=== PATIENT | male | born 1950 | race Caucasian/White ===

== ENCOUNTER 2017-12-31 10:11 | Day surgery (SDC) | payer MEDICARE, MEDICAID, SELFPAY ==
[2017-12-31] VITALS (13 sets, daily range): BP systolic 121–152; BP diastolic 67–92; PULSE 51–62; RESP 18–20; TEMP 36.8; O2SAT 92–95; BMI 37.6
--- NOTE | 2017-12-31 | IR_ITS ---
CARDIAC CATHETERIZATION DATE OF CATHETERIZATION:12/31/2017 10:11 AM PROCEDURES: 1. Left heart catheterization 2. Left ventriculogram 3. Selective coronary angiogram INDICATION FOR TEST: 1. Class III angina despite 2 antianginal medication 2. Refusal to undergo stress testing 3. Known coronary artery disease Informed consent was obtained prior to the procedure. COMPLICATIONS: None ESTIMATED BLOOD LOSS: Less than 10 ml. TECHNIQUE: One percent lidocaine used to anesthetize the right anterior aspect of the wrist. The right radial artery was accessed via the Seldinger technique. A 6 Uzbek sheath was placed in the right radial artery. 2.5 mg of verapamil, 800 mcg of nitroglycerin and 5000 U Heparin were given through the arterial sheath. The trap catheter was also used to perform left heart catheterization and left ventriculography. At the end of the procedure the patient was transferred to the post-op holding area in stable condition for arterial sheath removal. ANGIOGRAPHIC RESULTS: 1. The left main artery normal 2. The left anterior descending artery has a proximal 20% stenosis followed by a stent immediately after the first septal drying machine operator and first diagonal artery which is widely patent with very mild in-stent restenosis. The mid to distal LAD has a 60-70% concentric stenosis at a 2 mm segment. The first diagonal artery is a 2.25 to 2 mm vessel and has a proximal mostly eccentric 80% stenosis. 3. The circumflex artery is a nondominant vessel and has a stent in the proximal segment widely patent free of in-stent restenosis 4. The right coronary artery is a dominant vessel and has proximal to mid vessel stents are widely patent with minimal in-stent restenosis. The mid vessel has 40% stenoses with a distal eccentric 60% stenosis followed by an additional 40-50% stenosis followed by additional distal 40-50% stenoses. 5. The HANCOCK ventriculogram reveals normal 65% 6. The left ventricular end-diastolic pressure 20 millimeters mercury IMPRESSION: 1. Coronary artery disease as described above 2. Normal ejection fraction 3. Mildly elevated LVEDP PLAN: 1. At this point I favor medical management. I was not entirely convinced the patient's chest pain was angina. Should his symptoms remain recalcitrant and intolerable we can consider stenting the first diagonal artery and right coronary artery. At this point I don't believe patient was actually experiencing angina after all 2. Medical management 3. LDL less than 55 4. Continue cardiac rehabilitation 5. Avoidance of tobacco products
[2017-12-31 10:44] LABS: Basophils # 0.1 K/mm3 (0-0.2); Basophils % 1.2 % (0.1-2.0); Eosinophils # 0.3 K/mm3 (0.0-0.4); Eosinophils % 3.9 % (0.1-12.0); Hematocrit 47.7 % (42.0-52.0); Hemoglobin 16.2 g/dL (14.1-18.0); Lymphocytes # 2.1 K/mm3 (0.7-4.5); Lymphocytes % 29.9 K/mm3 (10-50); Mean Corpuscular Hemoglobin 32.3 pg (27.0-31.2); Mean Corpuscular Volume 95.2 fl (80-94); Mean Platelet Volume 7.1 fl (7.4-10.4); Monocytes # 0.5 K/mm3 (0.1-1.0); Monocytes % 7.4 % (1.7-9.3); Neutrophils # 4.1 K/mm3 (1.8-7.8); Neutrophils % 57.7 % (37.0-80.0); Platelet Count 245 K/mm3 (142-424); Red Blood Count 5.01 M/mm3 (4.60-6.20); Red Cell Distribution Width 13.1 % (11.5-17.5); White Blood Count 7.1 K/mm3 (4.8-10.8)
[2017-12-31 10:56] LABS: Anion Gap 8.9 mEq/L (5-15); Blood Urea Nitrogen 16 mg/dL (7-18); Carbon Dioxide 29 mmol/L (21.0-32.0); Chloride 104 mmol/L (98-107); Creatinine Clearance Estimated 117 mL/min (0-300); Creatinine,Serum 1.03 mg/dL (0.70-1.30); Estimated Glomerular Filt Rate 72 ml/min (>60); GFR (African American) 87 ML/MIN (>60); Glucose 126 mg/dL (74-106); Potassium 3.9 mmoL/L (3.5-5.1); Sodium 138 mmol/L (136-145)
== END 2017-12-31 15:05 | disposition home or self-care (01) ==
LOC: CATHLAB 10:14
PROVIDERS: PCP Emergency Medicine; Visit Provider Internal Medicine
DX: R07.9 Chest pain, unspecified (principal); I25.119 Atherosclerotic heart disease of native coronary artery with unspecified angina pectoris; Z95.5 Presence of coronary angioplasty implant and graft; I11.9 Hypertensive heart disease without heart failure; R53.83 Other fatigue; E78.5 Hyperlipidemia, unspecified; G47.33 Obstructive sleep apnea (adult) (pediatric); R06.02 Shortness of breath; R00.1 Bradycardia, unspecified; R20.2 Paresthesia of skin
CPT/HCPCS: 80048; 85025; 93458; 99152; C1725; C1769; J1644; Q9967

== ENCOUNTER → 2018-04-07 09:13 | Outpatient (REF) | payer MEDICARE, SELFPAY ==
[2018-04-07 13:49] LABS: Amphetamine/Metha Screen,Urine Negative ng/mL (<1000); Barbiturates Screen,Urine Negative ng/mL (<200); Benzodiazepines Screen,Urine Negative ng/mL (200); Cannabinoid Screen,Urine Negative ng/mL (<50); Cocaine Screen,Urine Negative ng/g (<300); Methadone Screen,Urine Negative ng/mL (<300); Opiate Screen,Urine Negative ng/mL (<300); Phencyclidine Screen,Urine Negative ng/mL (<25)
== END ==
LOC: LAB 09:13
PROVIDERS: Visit Provider Emergency Medicine
DX: Z79.899 Other long term (current) drug therapy (principal)
CPT/HCPCS: 80305

== ENCOUNTER → 2018-07-07 08:38 | Outpatient (REF) | payer MEDICARE, SELFPAY ==
[2018-07-07 16:07] LABS: Amphetamine/Metha Screen,Urine Negative ng/mL (<1000); Barbiturates Screen,Urine Negative ng/mL (<200); Benzodiazepines Screen,Urine Negative ng/mL (<200); Cannabinoid Screen,Urine Negative ng/mL (<50); Cocaine Screen,Urine Negative ng/mL (<300); Methadone Screen,Urine Negative ng/mL (<300); Opiate Screen,Urine Negative ng/mL (<300); Phencyclidine Screen,Urine Negative ng/mL (<25)
[2018-07-14 09:09] LABS: Alprazolam Negative (Cutoff=100); Benzodiazepines Negative ng/mL (Cutoff=100); Clonazepam Negative (Cutoff=100); Flurazepam Negative (Cutoff=100); Lorazepam Negative (Cutoff=100); Midazolam Negative (Cutoff=100); Temazepam Negative (Cutoff=100); Triazolam Negative (Cutoff=100)
== END ==
LOC: LAB 08:38
PROVIDERS: Visit Provider Nurse Practitioner Family
DX: Z79.899 Other long term (current) drug therapy (principal)
CPT/HCPCS: 80305; 80346

== ENCOUNTER → 2018-10-06 13:48 | Outpatient (CLI) | payer MEDICARE, SELFPAY ==
[2018-10-06 14:24] LABS: Amphetamine/Metha Screen,Urine Negative ng/mL (<1000); Barbiturates Screen,Urine Negative ng/mL (<200); Benzodiazepines Screen,Urine Negative ng/mL (<200); Cannabinoid Screen,Urine Negative ng/mL (<50); Cocaine Screen,Urine Negative ng/mL (<300); Methadone Screen,Urine Negative ng/mL (<300); Opiate Screen,Urine Negative ng/mL (<300); Phencyclidine Screen,Urine Negative ng/mL (<25)
[2018-10-11 22:06] LABS: Alprazolam Negative (Cutoff=100); Benzodiazepines Positive ng/mL (Cutoff=100); Clonazepam Positive (.); Flurazepam Negative (Cutoff=100); Lorazepam Negative (Cutoff=100); Midazolam Negative (Cutoff=100); Temazepam Negative (Cutoff=100); Triazolam Negative (Cutoff=100)
[2018-10-13 06:29] LABS: Clonazepam Confirm 282 ng/mL (Cutoff=100)
== END ==
PROVIDERS: Visit Provider Emergency Medicine
DX: Z79.899 Other long term (current) drug therapy (principal)
CPT/HCPCS: 80305; 80346

== ENCOUNTER → 2019-04-06 11:42 | Outpatient (CLI) | payer MEDICARE, SELFPAY ==
[2019-04-06 12:36] LABS: Basophils # 0.1 K/mm3 (0-0.2); Basophils % 1.1 % (0.1-2.0); Eosinophils # 0.1 K/mm3 (0.0-0.4); Eosinophils % 2.5 % (0.1-12.0); Hematocrit 47.7 % (42.0-52.0); Hemoglobin 15.6 g/dL (14.1-18.0); Lymphocytes # 1.8 K/mm3 (0.7-4.5); Lymphocytes % 32.5 % (10-50); Mean Corpuscular HGB Conc 32.7 g/dL (31.8-35.4); Mean Corpuscular Hemoglobin 30.4 pg (27.0-31.2); Mean Platelet Volume 7.3 fl (7.4-10.4); Monocytes # 0.5 K/mm3 (0.1-1.0); Monocytes % 8.3 % (1.7-9.3); Neutrophils # 3.1 K/mm3 (1.8-7.8); Neutrophils % 55.6 % (37.0-80.0); Platelet Count 215 K/mm3 (142-424); Red Blood Count 5.13 M/mm3 (4.60-6.20); Red Cell Distribution Width 12.7 % (11.5-17.5); White Blood Count 5.6 K/mm3 (4.8-10.8)
[2019-04-06 13:51] LABS: Alanine Aminotransferase 55 U/L (12-78); Albumin Level 3.9 gm/dL (3.4-5.0); Albumin/Globulin Ratio 1.3 (1.1-1.8); Alkaline Phosphatase 35 U/L (46-116); Anion Gap 16.5 mEq/L (5-15); Aspartate Amino Transferase 26 U/L (15-37); Bilirubin,Total 1.3 mg/dL (0.2-1.0); Blood Urea Nitrogen 13 mg/dL (7-18); Calcium 9.1 mg/dL (8.5-10.1); Carbon Dioxide 26 mmol/L (21.0-32.0); Chloride 103 mmol/L (98-107); Chol/HDL Ratio 3.4 (1-3.5); Cholesterol 120 mg/dL (140-200); Creatinine,Serum 1.02 mg/dL (0.70-1.30); Estimated Glomerular Filt Rate 73 ml/min (>60); GFR (African American) 88 ML/MIN (>60); Glucose 137 mg/dL (74-106); HDL Cholesterol 35 mg/dL (27-67); LDL Cholesterol 63 mg/dL (0-130); Potassium 4.5 mmoL/L (3.5-5.1); Sodium 141 mmol/L (136-145); Thyroid Stimulating Hormone 2.11 uIU/ml (0.358-3.740); Total Protein,Serum 6.9 gm/dL (6.4-8.2); Triglycerides 108 mg/dL (30-200); VLDL Cholesterol 22 mg/dL (0-40)
[2019-04-07 19:55] LABS: PSA, Free 0.35 ng/mL; Prostate Specific Ag 0.9 ng/mL (0.0-4.0)
[2019-04-07 19:58] LABS: Vitamin D 25 Hydroxy 35.4 ng/mL (30.0-100.0)
[2019-04-08 11:08] LABS: Hemoglobin A1C 7.1 % (0.0-7.0)
== END ==
PROVIDERS: Visit Provider Emergency Medicine
DX: I11.9 Hypertensive heart disease without heart failure (principal); R73.9 Hyperglycemia, unspecified; Z87.891 Personal history of nicotine dependence; Z79.899 Other long term (current) drug therapy
CPT/HCPCS: 80053; 80061; 82652; 83036; 84153; 84154; 84439; 84443; 85025

== ENCOUNTER → 2019-06-22 13:28 | Outpatient (CLI) | payer MEDICARE, SELFPAY ==
[2019-06-22 14:08] LABS: Anion Gap 12.3 mEq/L (5-15); Blood Urea Nitrogen 17 mg/dL (7-18); Calcium 9.3 mg/dL (8.5-10.1); Carbon Dioxide 30 mmol/L (21.0-32.0); Chloride 105 mmol/L (98-107); Creatinine,Serum 1.01 mg/dL (0.70-1.30); Estimated Glomerular Filt Rate 73 ml/min (>60); GFR (African American) 89 ML/MIN (>60); Glucose 115 mg/dL (74-106); Potassium 4.3 mmoL/L (3.5-5.1); Sodium 143 mmol/L (136-145)
[2019-06-22 15:18] LABS: Hemoglobin A1C 6.6 % (0.0-7.0)
== END ==
PROVIDERS: Visit Provider Emergency Medicine
DX: E11.9 Type 2 diabetes mellitus without complications (principal); R06.00 Dyspnea, unspecified; Z79.84 Long term (current) use of oral hypoglycemic drugs
CPT/HCPCS: 80048; 83036

== ENCOUNTER → 2019-07-08 06:30 | Outpatient (CLI) | payer MEDICARE, SELFPAY ==
[2019-07-09 07:20] LABS: Vitamin B12 321 pg/mL (232-1245)
[2019-07-12 04:17] LABS: Testosterone, Total, LC/MS 215.6 ng/dL (264.0-916.0)
== END ==
PROVIDERS: PCP Emergency Medicine; Visit Provider Nurse Practitioner Family
DX: G47.19 Other hypersomnia (principal); G47.33 Obstructive sleep apnea (adult) (pediatric); R53.83 Other fatigue
CPT/HCPCS: 36415; 82607; 84402; 84403

== ENCOUNTER → 2020-04-11 09:48 | Outpatient (CLI) | payer MEDICARE, SELFPAY ==
[2020-04-11 10:25] LABS: Basophils # 0.1 K/mm3 (0-0.2); Basophils % 1.2 % (0.1-2.0); Eosinophils # 0.2 K/mm3 (0.0-0.4); Eosinophils % 2.6 % (0.1-12.0); Hemoglobin 16.6 g/dL (14.1-18.0); Lymphocytes # 1.8 K/mm3 (0.7-4.5); Lymphocytes % 27.5 % (10-50); Mean Corpuscular HGB Conc 34.7 g/dL (31.8-35.4); Mean Corpuscular Hemoglobin 32.3 pg (27.0-31.2); Mean Platelet Volume 7.1 fl (7.4-10.4); Monocytes # 0.5 K/mm3 (0.1-1.0); Monocytes % 7.5 % (1.7-9.3); Neutrophils % 61.3 % (37.0-80.0); Platelet Count 218 K/mm3 (142-424); Red Blood Count 5.16 M/mm3 (4.60-6.20); Red Cell Distribution Width 13.7 % (11.5-17.5); White Blood Count 6.5 K/mm3 (4.8-10.8)
[2020-04-11 11:21] LABS: Microalbumin < 6.000 mg/L (0-16.7)
[2020-04-11 11:51] LABS: Chloride 103 mmol/L (98-107)
[2020-04-11 11:52] LABS: Potassium 4.1 mmoL/L (3.5-5.1); Sodium 138 mmol/L (136-145)
[2020-04-11 11:54] LABS: Alanine Aminotransferase 44 U/L (12-78); Albumin Level 4.4 g/dl (3.5-5.0); Albumin/Globulin Ratio 1.7 (1.1-1.8); Alkaline Phosphatase 30 U/L (38-126); Anion Gap 12.1 mEq/L (5-15); Aspartate Amino Transferase 27 U/L (17-59); Bilirubin,Total 1.8 mg/dl (0.2-1.3); Blood Urea Nitrogen 16 mg/dl (9-20); Carbon Dioxide 27 mmol/L (22.0-30.0); Cholesterol 138 mg/dl (140-200); Estimated Glomerular Filt Rate 74 ml/min (>60); GFR (African American) 90 ML/MIN (>60); Globulin 2.6 g/dL (1.3-3.2); Triglycerides 107 mg/dl (30-150); VLDL Cholesterol 21 mg/dL (0-40)
[2020-04-11 11:55] LABS: Calcium 9.3 mg/dl (8.4-10.2); Chol/HDL Ratio 3.1 (1-3.5); Glucose 113 mg/dl (74-100); HDL Cholesterol 44 mg/dl (40-60)
[2020-04-11 12:06] LABS: Direct LDL Cholesterol 87.04 mg/dL (100-129)
[2020-04-11 12:11] LABS: T4 (Thyroxine) 9.1 ug/dl (5.53-11.0)
[2020-04-11 12:25] LABS: Thyroid Stimulating Hormone 3.09 uIU/mL (0.465-4.68)
[2020-04-11 13:40] LABS: Hemoglobin A1C 6.4 % (4.0-6.0)
== END ==
PROVIDERS: Visit Provider Emergency Medicine
DX: E11.9 Type 2 diabetes mellitus without complications (principal); E66.9 Obesity, unspecified; E78.5 Hyperlipidemia, unspecified; F41.9 Anxiety disorder, unspecified; I11.9 Hypertensive heart disease without heart failure; R60.9 Edema, unspecified; Z79.84 Long term (current) use of oral hypoglycemic drugs
CPT/HCPCS: 36415; 80053; 80061; 82043; 83036; 84436; 84443; 85025

== ENCOUNTER → 2020-04-18 13:26 | Outpatient (CLI) | payer MEDICARE, SELFPAY ==
[2020-04-18 14:43] LABS: Creatinine,Urine Random 94 mg/dL (Not Estab.); Microalbumin < 6.000 mg/L (0-16.7)
== END ==
PROVIDERS: Visit Provider Emergency Medicine
DX: E11.9 Type 2 diabetes mellitus without complications (principal); Z79.84 Long term (current) use of oral hypoglycemic drugs
CPT/HCPCS: 82043; 82570

== ENCOUNTER → 2020-05-30 12:25 | Outpatient (CLI) | payer MEDICARE, SELFPAY ==
--- NOTE | 2020-05-30 12:37 | CA_ITS ---
APPROVED REPORT EXAM: Comprehensive 2D, Doppler, and color-flow Echocardiogram Manager Foreign: Melissa Davies RVT Ht: 5 ft 10 in Wt: 246lbs BSA: 2.28 BP: 132/78 mmHg Indications: SOA,EX SMOKER,MR,CAD,STENT,HTN,HLD TDS 2D Dimensions LVOT 2.71 cm (M/F) 1.5-2.5 M-Mode Dimensions RVDd 3.24 cm (0.9-2.6) LVDd 5.26 cm (3.5-5.7) LVDs 3.34 cm (3.5-5.7) IVSd 1.42 cm (0.6-1.1) PWd 0.98 cm (0.6-1.1) EF (Teich) 65.90% FS 36.50% EDV (Teich) 133.00 mL ESV (Teich) 45.40 mL Left Ventricle Technically very difficult study because of the patient factors and poor acoustic windows. Endocardial surfaces are poorly visualized. Left atrium is mildly enlarged, left ventricle is normal size, mild concentric left ventricular hypertrophy, visually estimated ejection fraction 55% with no regional wall motion abnormality, diastolic parameters are inconclusive. Right Ventricle Right atrium and right ventricle are mildly enlarged with normal contractility. Aortic Valve Aortic valve is minimally thickened and fibrosed, there is no aortic stenosis or aortic insufficiency. Mitral Valve Mitral valve is minimally thickened, there is mild mitral regurgitation. Tricuspid Valve Tricuspid valve is grossly normal, there is mild tricuspid regurgitation, calculated right ventricular systolic pressure 36 mmHg. Pulmonic Valve Pulmonic valve is poorly visualized. Great Vessels Aortic root is normal size. Pericardium No significant pericardial effusion noted. Conclusion 1. Biatrial enlargement, normal left ventricular size, mild concentric left ventricular hypertrophy, visually estimated ejection fraction 55% with no regional wall motion abnormality, diastolic parameters are inconclusive, endocardial surfaces are poorly visualized. 2. Mildly enlarged right ventricle with normal contractility. 3. Mild mitral and tricuspid regurgitation. 4. No significant pericardial effusion noted. Electronically signed by : Jose Barriga, 05/30/2020 18:24:31
== END ==
PROVIDERS: PCP Emergency Medicine; Visit Provider Nurse Practitioner Family
DX: I11.9 Hypertensive heart disease without heart failure; I25.10 Atherosclerotic heart disease of native coronary artery without angina pectoris; I25.2 Old myocardial infarction; I34.0 Nonrheumatic mitral (valve) insufficiency; R06.00 Dyspnea, unspecified; R06.01 Orthopnea; R06.02 Shortness of breath; E78.49 Other hyperlipidemia
CPT/HCPCS: 93306

== ENCOUNTER → 2020-06-06 09:49 | Outpatient (CLI) | payer MEDICARE, SELFPAY | PROVIDERS: PCP Emergency Medicine; Visit Provider Nurse Practitioner Family | DX: R00.1 Bradycardia, unspecified (principal); I48.91 Unspecified atrial fibrillation; I25.10 Atherosclerotic heart disease of native coronary artery without angina pectoris; I11.9 Hypertensive heart disease without heart failure; E78.2 Mixed hyperlipidemia; G47.33 Obstructive sleep apnea (adult) (pediatric) | CPT/HCPCS: 93225 ==

== ENCOUNTER → 2020-06-17 13:17 | Outpatient (CLI) | payer MEDICARE, SELFPAY ==
[2020-06-17 14:17] LABS: Basophils # 0.1 K/mm3 (0-0.2); Basophils % 1.1 % (0.1-2.0); Eosinophils # 0.2 K/mm3 (0.0-0.4); Eosinophils % 3.2 % (0.1-12.0); Hematocrit 46.9 % (42.0-52.0); Hemoglobin 15.5 g/dL (14.1-18.0); Lymphocytes % 30.5 % (10-50); Mean Corpuscular HGB Conc 33.1 g/dL (31.8-35.4); Mean Corpuscular Hemoglobin 31.2 pg (27.0-31.2); Mean Corpuscular Volume 94.3 fl (80-94); Mean Platelet Volume 7.4 fl (7.4-10.4); Monocytes # 0.4 K/mm3 (0.1-1.0); Monocytes % 6.2 % (1.7-9.3); Neutrophils # 3.8 K/mm3 (1.8-7.8); Platelet Count 237 K/mm3 (142-424); Red Blood Count 4.98 M/mm3 (4.60-6.20); Red Cell Distribution Width 13.9 % (11.5-17.5); White Blood Count 6.4 K/mm3 (4.8-10.8)
[2020-06-17 14:19] LABS: Chloride 103 mmol/L (98-107); Sodium 142 mmol/L (136-145)
[2020-06-17 14:20] LABS: Potassium 4.3 mmoL/L (3.5-5.1)
[2020-06-17 14:22] LABS: Blood Urea Nitrogen 17 mg/dl (9-20); Estimated Glomerular Filt Rate 74 ml/min (>60); GFR (African American) 90 ML/MIN (>60)
[2020-06-17 14:23] LABS: Anion Gap 13.3 mEq/L (5-15); Calcium 9.7 mg/dl (8.4-10.2); Carbon Dioxide 30 mmol/L (22.0-30.0); Glucose 134 mg/dl (74-100)
[2020-06-17 14:40] LABS: Free T4 (Free Thyroxine) 0.97 ng/dl (0.78-2.19)
[2020-06-17 14:53] LABS: Thyroid Stimulating Hormone 1.58 uIU/mL (0.465-4.68)
== END ==
PROVIDERS: Visit Provider Nurse Practitioner Family
DX: I48.91 Unspecified atrial fibrillation (principal); Z78.9 Other specified health status
CPT/HCPCS: 36415; 80048; 84439; 84443; 85025

== ENCOUNTER → 2020-06-28 07:14 | Outpatient (CLI) | payer MEDICARE, SELFPAY ==
--- NOTE | 2020-06-28 | CA_ITS ---
APPROVED REPORT Exam: Pharmacologic Technologist: Shelly Enriquez Ht: 5 ft 10 in Wt: 247 lbs BSA: 2.28 m2 HR: 70 bpm BP: 132/70 mmHg Indications: Chest pain, Shortness of Breath Medical History Medications: Amlodipine,,,,, Lisinopril,,,,, Aspirin,,,,, Pravastatin,,,,, Metformin,,,,, HCTZ,,,,, Carvedilol,,,,, Buspirone,,,,, Diclofenac,,,,, Fluoxetine,,,,, RIvaROXABAN,,,,, Stress Test Details Test: LEXISCAN HR Resting HR: 76 bpm Max Heart Rate (APMHR): 151 bpm Max HR Achieved: 96 bpm Target HR (85% APMHR): 128 bpm % of APMHR: 63 Recovery HR: 66 bpm BP Resting BP: 132.0/79.0 mmHg Max BP: 136.0/71.0 mmHg Recovery BP: 128.0/75.0 mmHg ECG Clinical Exercise duration: 04:03 min Highest Stage Achieved: Stress ECG Conclusion Resting EKG: Atrial fibrillation, slow R wave progression. Symptoms: Shortness of air, stomach cramps. No chest pain. Arrhythmias/Ectopy: Occasional PVCs vs abberantly conducted beat. ST-T Changes: No significant changes. Conclusion: Unremarkable Lexiscan stress. Myoview images reported separately. Test Summary REST . . . . . . . Resting REST 02:35 . . 76 . 132/ 79 . . Stage 1 . . . . . . . Myoview Injected Stage 1 01:00 . . 84 . . . . Stage 2 01:00 . . 79 . 136/ 71 . . Stage 3 01:00 . . 78 . 130/ 71 . . Stage 4 01:00 . . 80 . 115/ 70 . . Stage 4 01:03 . . 69 . 115/ 70 . Stop exercise at 04:03 RECOVERY 01:00 . . 86 . 124/ 76 . . RECOVERY 02:00 . . 82 . 124/ 76 . . RECOVERY 03:00 . . 74 . 131/ 76 . . RECOVERY 03:34 . . 77 . 128/ 75 . . Electronically signed by : Jose Barriga, 06/28/2020 21:12:48
--- NOTE | 2020-06-28 07:14 | NM_ITS ---
APPROVED REPORT Exam: Nuclear Stress Test Indication: short of breath Patient Location: Outpatient Stress Tech: Shelly Enriquez NH Tech:RAFAT Ellis RT(R)(N) Ht: 5 ft 10 in Wt: 247 lbs HR: 70 bpm BP: 132/70 mmHg BSA: 2.28 m2 BMI: 35.4 History: short of breath Procedure: Patient received a 0.4 mg of intravenous Lexiscan, resting heart rate 70 bpm, resting blood pressure 132/70 mmHg, with Lexiscan maximum heart rate achived was 86 bpm which is Less than 85 % of the maximum predicted heart rate and blood pressure was 136/71 mmHg. With Lexiscan, patient denied any complaint of chest pain. Electrocardiogram Resting electrocardiogram showed atrial fibrillation, with Lexiscan there is less than 1.[address] segment depression noted from the baseline EKG. The EKG portion of the Lexiscan Myoview is nondiagnostic. Cardiac Stress and Resting SPECT Images: Cardiac Stress and Resting SPECT images were obtained using technetium 99m Myoview 30.8 mCi stress and 10.48 mCi at rest. Gated SPECT for the analysis of segmental wall motion and calculation of the ejection fraction also done. Cardiac stress and resting SPECT images show uniform myocardial activity without segmental perfusion abnormality, computer derived ejection fraction is 63% with no regional wall motion abnormality, right ventricle is normal size and contractility. Conclusion: 1. The EKG portion of the Lexiscan Myoview is nondiagnostic. 2. No scintigraphic evidence of reversible ischemia seen, computer derived ejection fraction is 63% with no regional wall motion abnormality, right ventricle is normal size and contractility. 3. Normal Lexiscan Myoview study. Electronically signed by : Jose Barriga, 06/28/2020 21:14:59
--- NOTE | 2020-06-28 10:22 | HMH.ITSHM ---
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 [] xarelto pravastatin amlodipine
== END ==
PROVIDERS: PCP Emergency Medicine; Visit Provider Nurse Practitioner Family
DX: E78.2 Mixed hyperlipidemia (principal); G47.33 Obstructive sleep apnea (adult) (pediatric); I11.9 Hypertensive heart disease without heart failure; I25.10 Atherosclerotic heart disease of native coronary artery without angina pectoris; I25.2 Old myocardial infarction; I48.91 Unspecified atrial fibrillation; R00.1 Bradycardia, unspecified; R06.00 Dyspnea, unspecified; R07.9 Chest pain, unspecified
CPT/HCPCS: 78452; 93017; A9502; J2785

== ENCOUNTER → 2021-02-21 11:23 | Outpatient (CLI) | payer MEDICARE, SELFPAY ==
[2021-02-21 11:50] LABS: Basophils # 0.1 K/mm3 (0-0.2); Basophils % 1.5 % (0.1-2.0); Eosinophils # 0.2 K/mm3 (0.0-0.4); Eosinophils % 2.6 % (0.1-12.0); Hematocrit 46.4 % (42.0-52.0); Hemoglobin 15.9 g/dL (14.1-18.0); Lymphocytes # 2.3 K/mm3 (0.7-4.5); Lymphocytes % 32.5 % (10-50); Mean Corpuscular HGB Conc 34.1 g/dL (31.8-35.4); Mean Corpuscular Hemoglobin 31.4 pg (27.0-31.2); Mean Platelet Volume 7.3 fl (7.4-10.4); Monocytes # 0.5 K/mm3 (0.1-1.0); Monocytes % 7.7 % (1.7-9.3); Neutrophils # 3.9 K/mm3 (1.8-7.8); Neutrophils % 55.6 % (37.0-80.0); Platelet Count 235 K/mm3 (142-424); Red Blood Count 5.05 M/mm3 (4.60-6.20); Red Cell Distribution Width 13.4 % (11.5-17.5); White Blood Count 6.9 K/mm3 (4.8-10.8)
[2021-02-21 11:54] LABS: Chloride 100 mmol/L (98-107); Potassium 4.8 mmoL/L (3.5-5.1); Sodium 140 mmol/L (136-145)
[2021-02-21 11:56] LABS: Bilirubin,Unconjugated 1.3 mg/dL (0.0-1.1); Blood Urea Nitrogen 19 mg/dl (9-20); Estimated Glomerular Filt Rate 74 ml/min (>60); GFR (African American) 89 ML/MIN (>60)
[2021-02-21 11:57] LABS: Alanine Aminotransferase 36 U/L (12-78); Albumin Level 4.7 g/dl (3.5-5.0); Alkaline Phosphatase 31 U/L (38-126); Anion Gap 13.8 mEq/L (5-15); Aspartate Amino Transferase 33 U/L (17-59); Bilirubin,Direct 0.1 mg/dl (0.0-0.4); Bilirubin,Indirect 1.3 mg/dL (0.0-0.9); Bilirubin,Total 1.4 mg/dl (0.2-1.3); Calcium 9.6 mg/dl (8.4-10.2); Carbon Dioxide 31 mmol/L (22.0-30.0); Chol/HDL Ratio 3.9 (1-3.5); Cholesterol 138 mg/dl (140-200); Glucose 117 mg/dl (74-100); HDL Cholesterol 35 mg/dl (40-60); Total Protein,Serum 7.6 g/dl (6.3-8.2); Triglycerides 162 mg/dl (30-150); VLDL Cholesterol 32 mg/dL (0-40)
[2021-02-21 12:10] LABS: Direct LDL Cholesterol 74.48 mg/dL (100-129)
[2021-02-21 12:18] LABS: Troponin I < 0.01 ng/ml (0.00-0.034)
[2021-02-21 12:30] LABS: Thyroid Stimulating Hormone 2.19 uIU/mL (0.465-4.68)
[2021-02-21 12:50] LABS: Free T4 (Free Thyroxine) 0.99 ng/dl (0.78-2.19)
== END ==
PROVIDERS: PCP Emergency Medicine; Visit Provider Physician Assistant
DX: E11.9 Type 2 diabetes mellitus without complications (principal); E78.2 Mixed hyperlipidemia; G47.33 Obstructive sleep apnea (adult) (pediatric); I11.9 Hypertensive heart disease without heart failure; I25.10 Atherosclerotic heart disease of native coronary artery without angina pectoris; I25.2 Old myocardial infarction; I48.91 Unspecified atrial fibrillation; R00.1 Bradycardia, unspecified; R06.02 Shortness of breath; R07.9 Chest pain, unspecified; Z79.84 Long term (current) use of oral hypoglycemic drugs
CPT/HCPCS: 36415; 80048; 80061; 80076; 84439; 84443; 84484; 85025; 93225

== ENCOUNTER → 2021-02-28 13:19 | Outpatient (CLI) | payer MEDICARE, SELFPAY ==
--- NOTE | 2021-02-28 13:25 | CT_ITS ---
PROCEDURE: CT HEAD/BRAIN W CON CLINICAL INDICATION: dizziness COMPARISON: CT HDWO CT HEAD W/O CONTRAST from 06/12/2016 TECHNIQUE: IV Contrast: 100ML Isovue 370 Axial images obtained. All CT scans at the facility use one or more dose reduction, viz: automated exposure control, ma/kV adjustment per patient size (including targeted exams where dose is matched to indication, i.e. head), or iterative reconstruction technique. FINDINGS: No midline shift, mass effect, intracranial hemorrhage, hydrocephalus, or extra-axial fluid collection is evident. No enhancing lesions are evident. The calvarium has an unremarkable appearance. No mastoid effusion. No sinus air-fluid levels IMPRESSION: No acute intracranial findings. Dictated by: Chase Sherman MD 02/28/2021 17:38 Chase Sherman MD in [facility] 02/28/2021 17:39
== END ==
PROVIDERS: PCP Emergency Medicine; Visit Provider Physician Assistant
DX: E78.2 Mixed hyperlipidemia (principal); G47.33 Obstructive sleep apnea (adult) (pediatric); I11.9 Hypertensive heart disease without heart failure; I25.10 Atherosclerotic heart disease of native coronary artery without angina pectoris; I25.2 Old myocardial infarction; I48.91 Unspecified atrial fibrillation; R00.1 Bradycardia, unspecified; R06.02 Shortness of breath; R07.9 Chest pain, unspecified; R42 Dizziness and giddiness
CPT/HCPCS: 70460; Q9967

== ENCOUNTER → 2021-04-11 07:26 | Outpatient (CLI) | payer MEDICARE, SELFPAY ==
[2021-04-11 09:33] LABS: Chloride 102 mmol/L (98-107); Sodium 138 mmol/L (136-145)
[2021-04-11 09:36] LABS: Blood Urea Nitrogen 18 mg/dl (9-20); Estimated Glomerular Filt Rate 66 ml/min (>60); GFR (African American) 80 ML/MIN (>60)
[2021-04-11 09:37] LABS: Calcium 9.3 mg/dl (8.4-10.2); Carbon Dioxide 31 mmol/L (22.0-30.0); Glucose 120 mg/dl (74-100)
== END ==
PROVIDERS: Visit Provider Physician Assistant
DX: E11.9 Type 2 diabetes mellitus without complications (principal); E66.9 Obesity, unspecified; E78.5 Hyperlipidemia, unspecified; G47.33 Obstructive sleep apnea (adult) (pediatric); I20.9 Angina pectoris, unspecified; I48.91 Unspecified atrial fibrillation; R06.00 Dyspnea, unspecified; Z79.84 Long term (current) use of oral hypoglycemic drugs; Z68.36 Body mass index [BMI] 36.0-36.9, adult
CPT/HCPCS: 36415; 80048

== ENCOUNTER → 2021-04-19 07:07 | Outpatient (CLI) | payer MEDICARE, SELFPAY ==
[2021-04-19 07:50] LABS: Hemoglobin A1C 6.5 % (4.0-6.0)
== END ==
PROVIDERS: Visit Provider Emergency Medicine
DX: E11.9 Type 2 diabetes mellitus without complications (principal); Z79.84 Long term (current) use of oral hypoglycemic drugs
CPT/HCPCS: 36415; 83036

== ENCOUNTER → 2022-01-30 09:16 | Outpatient (CLI) | payer MEDICARE, SELFPAY ==
[2022-01-30 09:50] LABS: Basophils # 0.1 K/mm3 (0-0.2); Basophils % 1.3 % (0.1-2.0); Eosinophils # 0.2 K/mm3 (0.0-0.4); Hematocrit 47.8 % (42.0-52.0); Hemoglobin 15.7 g/dL (14.1-18.0); Lymphocytes # 1.6 K/mm3 (0.7-4.5); Mean Corpuscular HGB Conc 32.9 g/dL (31.8-35.4); Mean Corpuscular Hemoglobin 32.4 pg (27.0-31.2); Mean Corpuscular Volume 98.5 fl (80-94); Mean Platelet Volume 7.8 fl (7.4-10.4); Monocytes # 0.4 K/mm3 (0.1-1.0); Monocytes % 6.8 % (1.7-9.3); Neutrophils # 4.1 K/mm3 (1.8-7.8); Platelet Count 267 K/mm3 (142-424); Red Blood Count 4.85 M/mm3 (4.60-6.20); Red Cell Distribution Width 13.4 % (11.5-17.5); White Blood Count 6.5 K/mm3 (4.8-10.8)
[2022-01-30 10:19] LABS: Bilirubin,Unconjugated 0.7 mg/dL (0.0-1.1)
[2022-01-30 10:20] LABS: Alanine Aminotransferase 39 U/L (12-78); Albumin Level 4.2 g/dl (3.5-5.0); Alkaline Phosphatase 37 U/L (38-126); Aspartate Amino Transferase 32 U/L (17-59); Bilirubin,Direct 0.3 mg/dl (0.0-0.4); Bilirubin,Indirect 0.7 mg/dL (0.0-0.9); Chol/HDL Ratio 3.6 (1-3.5); Cholesterol 131 mg/dl (140-200); HDL Cholesterol 36 mg/dl (40-60); Total Protein,Serum 7.6 g/dl (6.3-8.2); Triglycerides 188 mg/dl (30-150); VLDL Cholesterol 38 mg/dL (0-40)
[2022-01-30 10:31] LABS: Direct LDL Cholesterol 74.62 mg/dL (100-129)
== END ==
PROVIDERS: Visit Provider Physician Assistant
DX: E11.69 Type 2 diabetes mellitus with other specified complication (principal); E78.2 Mixed hyperlipidemia; G47.33 Obstructive sleep apnea (adult) (pediatric); I11.9 Hypertensive heart disease without heart failure; I20.9 Angina pectoris, unspecified; I25.10 Atherosclerotic heart disease of native coronary artery without angina pectoris; I48.91 Unspecified atrial fibrillation; R06.02 Shortness of breath; R42 Dizziness and giddiness; E11.9 Type 2 diabetes mellitus without complications; I63.9 Cerebral infarction, unspecified
CPT/HCPCS: 36415; 80061; 80076; 85025

== ENCOUNTER → 2022-05-16 07:41 | Outpatient (CLI) | payer MEDICARE, SELFPAY ==
--- NOTE | 2022-05-16 07:42 | NM_ITS ---
APPROVED REPORT Exam: Nuclear Stress Test Indication: Chest pain, SOB, HTN, DM, Family history, CAD Patient Location: Outpatient Stress Tech: Gabriela Rudd MS Tech:Jada Ritchie, ARRT, RT (R)(N) Ht: 5 ft 10 in Wt: 241 lbs HR: 81 bpm BP: 122/64 mmHg BSA: 2.26 m2 TID: 1.24 BMI: 34.5 History: Chest pain, SOB, HTN, DM, Family history, CAD Procedure: Patient received a 0.4 mg of intravenous Lexiscan, resting heart rate 81 bpm, resting blood pressure 122/64 mmHg, with Lexiscan maximum heart rate achived was 104 bpm which is Less than 85 % of the maximum predicted heart rate and blood pressure was 122/64 mmHg. With Lexiscan, patient denied any complaint of chest pain. Electrocardiogram Resting electrocardiogram showed sinus rhythm, with Lexiscan there is less than 1.[address] segment depression from the baseline EKG. The EKG portion of the Lexiscan is nondiagnostic. Cardiac Stress and Resting SPECT Images: Cardiac Stress and Resting SPECT images were obtained using technetium 99m Myoview 32.9 mCi stress and 10.86 mCi at rest. Gated SPECT analysis of segmental wall motion and calculation of the ejection fraction also done. Prone images were also obtained. Cardiac stress and rest SPECT images show partial reversible defect involving the inferior wall likely secondary to mixed ischemia and scar, computer derived ejection fraction is 55% with mild inferolateral hypokinesis, right ventricle is normal size and contractility. Conclusion: 1. The EKG portion of the Lexiscan is nondiagnostic. 2. Mixed ischemia and scar involving the inferior wall, compared to ejection fraction of 55% with segmental wall motion abnormality described above, right ventricle is normal size and contractility. 3. Likely abnormal Lexiscan Myoview study. Electronically signed by : Jose Barriga MD 05/18/2022 12:58:56
--- NOTE | 2022-05-16 09:02 | HMH.ITSHM ---
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 []SPIRONOLACTONE RIVAROXABAN PRAVASTATIN OMEPRAZOLE NITRO METFORMIN LISINOPRIL ISOSORBIDE FUROSEMIDE FLUOXETINE DICLOFENAC CARVEDILOL BUSPIRONE ASA AMLODIPINE
--- NOTE | 2022-05-16 09:27 | CA_ITS ---
APPROVED REPORT Exam: Pharmacologic Technologist: Gabriela Dejesus, Ht: 5 ft 10 in Wt: 245 lbs BSA: 2.28 m2 HR: 77 bpm BP: 122/64 mmHg Medical History Medications: Amlodipine,,,,, Lisinopril,,,,, Omeprazole,,,,, Isosorbide,,,,, Aspirin,,,,, Pravastatin,,,,, Metformin,,,,, Carvedilol,,,,, Buspirone,,,,, XaRELTO,,,,, Prozac,,,,, Voltaren,,,,, Stress Test Details Test: LEXISCAN Reason for pharmacologic stress test: physical limitation. HR Resting HR: 81 bpm Max Heart Rate (APMHR): 149.436596 bpm Max HR Achieved: 104 bpm Target HR (85% APMHR): 126.172526 bpm % of APMHR: 69.80 Recovery HR: 82 bpm BP Resting BP: 122/64 mmHg Max BP: 122/64 mmHg Recovery BP: 103.0/55.0 mmHg ECG Resting ECG: Afib, controlled v. rate, rightward axis Clinical Exercise duration: 04:00 min Highest Stage Achieved: Stress ECG Conclusion Symptoms: Mild chest pressure, SOA, nausea & head discomfort. Arrhythmias/Ectopy: Afib throught. ST-T Changes: No significant changes. Conclusion: Unremarkable Lexiscan stress. Myoview images reported separately. Electronically signed by : Jose Barriga MD 05/17/2022 05:44:32
== END ==
PROVIDERS: PCP Emergency Medicine; Visit Provider Physician Assistant
DX: I11.9 Hypertensive heart disease without heart failure; I25.2 Old myocardial infarction; R00.1 Bradycardia, unspecified; R06.00 Dyspnea, unspecified; R06.01 Orthopnea; R06.02 Shortness of breath; I20.8 Other forms of angina pectoris
CPT/HCPCS: 78452; 93017; A9502; J2785

== ENCOUNTER → 2022-08-06 08:13 | Outpatient (CLI) | payer MEDICARE, SELFPAY ==
[2022-08-06 10:52] LABS: Basophils # 0.1 K/mm3 (0-0.2); Basophils % 1.3 % (0.1-2.0); Eosinophils # 0.2 K/mm3 (0.0-0.4); Eosinophils % 2.4 % (0.1-12.0); Hematocrit 46.4 % (42.0-52.0); Hemoglobin 14.9 g/dL (14.1-18.0); Lymphocytes % 29.1 % (10-50); Mean Corpuscular HGB Conc 32.2 g/dL (31.8-35.4); Mean Corpuscular Hemoglobin 31.6 pg (27.0-31.2); Mean Corpuscular Volume 98.2 fl (80-94); Mean Platelet Volume 8.1 fl (7.4-10.4); Monocytes # 0.6 K/mm3 (0.1-1.0); Monocytes % 9.5 % (1.7-9.3); Neutrophils # 3.9 K/mm3 (1.8-7.8); Neutrophils % 57.6 % (37.0-80.0); Platelet Count 270 K/mm3 (142-424); Red Blood Count 4.73 M/mm3 (4.60-6.20); Red Cell Distribution Width 13.4 % (11.5-17.5); White Blood Count 6.7 K/mm3 (4.8-10.8)
[2022-08-06 11:44] LABS: Anion Gap 15.7 mEq/L (5-15); Blood Urea Nitrogen 25 mg/dl (9-20); Calcium 9.1 mg/dl (8.4-10.2); Carbon Dioxide 29 mmol/L (22.0-30.0); Chloride 98 mmol/L (98-107); Estimated Glomerular Filt Rate 66 ml/min (>60); GFR (African American) 80 ML/MIN (>60); Glucose 107 mg/dl (74-100); Potassium 4.7 mmoL/L (3.5-5.1); Sodium 138 mmol/L (136-145)
== END ==
PROVIDERS: PCP Emergency Medicine; Visit Provider Physician Assistant
DX: E66.9 Obesity, unspecified (principal); E78.2 Mixed hyperlipidemia; I11.9 Hypertensive heart disease without heart failure; I34.0 Nonrheumatic mitral (valve) insufficiency; I48.91 Unspecified atrial fibrillation; R42 Dizziness and giddiness; R94.30 Abnormal result of cardiovascular function study, unspecified; I20.8 Other forms of angina pectoris; Z68.35 Body mass index [BMI] 35.0-35.9, adult
CPT/HCPCS: 36415; 80048; 85025

== ENCOUNTER 2022-08-08 07:56 | Day surgery (SDC) | payer MEDICARE, SELFPAY ==
[2022-08-08] VITALS (15 sets, daily range): BP systolic 92–157; BP diastolic 53–81; PULSE 62–76; RESP 16–18; TEMP 36.2; O2SAT 93–98; BMI 35.2
--- NOTE | 2022-08-08 07:04 | IR_ITS ---
APPROVED REPORT Patient Location: Outpatient Roller Stainer: RAFAT Fuchs RT (R) PROCEDURES Left heart catheterization Left ventriculogram Selective coronary angiogram Drug-eluting stent deployment to the proximal and mid LAD in a contiguous manner INDICATION Coronary artery disease, Typical angina pectoris, Abnormal Myoview Informed consent was obtained prior to the procedure. COMPLICATIONS None Estimated Blood Loss: Less than 10 ml TECHNIQUE One percent lidocaine used to anesthetize the right anterior aspect of the wrist. The right radial artery was accessed via the Seldinger technique. A 6 Danish sheath was placed in the right radial artery. 2.5 mg of verapamil, 800 mcg of nitroglycerin, 1mg Lidocaine and 5000 U Heparin were given through the arterial sheath. The papa catheter was also used to perform left heart catheterization, left ventriculogram and selective coronary angiogram. At the end the diagnostic angiogram therapeutic heparin was administered giving a therapeutic ACT and the guide catheter was placed in the left main artery followed by a Choice PT extra-support wire. A 3 mm x 38 mm resolute [place] stent was deployed in the mid LAD at 20 ekta reducing the stenosis to 0%. An additional 3.5 x 26 mm resolute [place] stent was placed proximal to the for stent yet still overlapping it and deployed at 20 ekta. A 4 x 12 mm balloon was then placed in the proximal LAD and deployed on 2 occasions at 22 ekta to post dilate. ROXY-3 flow was present before and after the procedure. After achieving excellent angiograph results the apparatus was removed the sheath was removed and hemostasis was achieved using TR banding patient was transferred to the postop putting in stable condition ANGIOGRAPHIC RESULTS The left main artery Normal The left anterior descending artery Has proximal 70% stenoses with additional additional 50% mid vessel stenoses. There is a stent which has good distal transitioning with nothing greater than a 30% stenosis distally. The LAD is large and wraps the apex. The first diagonal artery is moderate in size and has a proximal concentric 70% stenosis The circumflex artery Is nondominant yet still large and has mild luminal irregularities nothing greater than 10% The right coronary artery Is a dominant vessel and is proximally calcified and then occluded after the RV marginal branch. The PDA fills scantly via right to right collaterals and moderately via [id number] collaterals The HANCOCK ventriculogram reveals Dilated ventricle inferior wall hypokinesis estimate ejection fraction 45% The left ventricular end-diastolic pressure 20 mmHg IMPRESSION Chronically occluded LAD which fills via collaterals from a large LAD which is moderate to severely diseased in the proximal to mid segment Successful stenting the proximal to mid LAD severe disease reduced to 0% with 2 contiguous drug-eluting stents Persistent severe stenosis in a moderate sized first diagonal artery which is best managed medically Dilated ventricle with regional wall motion abnormality and reduced ejection fraction Elevated LVEDP PLAN 1. Dual antiplatelet therapy 2. Risk factor modification 3. Entresto 4. LDL less than 55 to be achieved with high intensity statin 5. Cardiac rehabilitation 6. Avoidance of tobacco Electronically signed by : Alfredito Gooden MD 08/08/2022 09:48:41
--- NOTE | 2022-08-08 10:08 | SUR.PHASEII ---
Report given to Maddy Egan RN post op.
[2022-08-08 10:15] LABS: CATHL Activated Clotting Time 255 SEC (74-125)
--- NOTE | 2022-08-08 14:05 | HMH.PHACL ---
MERGED WITH [facility] Template Fitter Discharge Med Turning Sander Operator: Ramy Gisel CABAN Lila has received discharge medication counseling on the following medications: -ASPIRIN (PATIENT WAS PREVIOUSLY TAKING) -PLAVIX (BLOOD THINNER, DAILY, BLEED/BRUISE RISK, BLEED LOCATION/APPEARANCE, BUMP HEAD = GO TO ER, SOB POSSIBLE) -XARELTO (PATIENT WAS PREVIOUSLY TAKING) -PRAVASTATIN (PATIENT WAS PREVIOUSLY TAKING) -CARVEDILOL (PATIENT WAS PREVIOUSLY TAKING) -LISINOPRIL (PATIENT WAS PREVIOUSLY TAKING) PATIENT AND ASKED IF HE SHOULD CONTINUE TO TAKE HIS XARELTO SINCE THE PLAVIX WAS STARTED. ADVISED TO CONTINUE XARELTO AND WATCH FOR BLEED/BRUISE RISK AND GO TO ER IF BLEEDING OCCURS. PATIENT ALSO ASKED IF HE SHOULD TAKE THE XARELTO AND PLAVIX AT DIFFERENT TIMES OF THE DAY. I ADVISED HIM THEY CAN BE TAKEN TOGETHER OR IF YOU FEEL MORE COMFORTABLE, YOU CAN TAKE ONE IN THE MORNING AND ONE IN THE EVENING, JUST BE CONSISTENT IN THE TIME OF DAY YOU TAKE EACH. PATIENT VERBALIZED NO ADDITIONAL QUESTIONS AT THIS TIME.
== END 2022-08-08 14:10 | disposition home or self-care (01) ==
PROVIDERS: PCP Emergency Medicine; Visit Provider Internal Medicine
DX: E78.2 Mixed hyperlipidemia; I11.9 Hypertensive heart disease without heart failure; I34.0 Nonrheumatic mitral (valve) insufficiency; I48.91 Unspecified atrial fibrillation; R42 Dizziness and giddiness; R94.30 Abnormal result of cardiovascular function study, unspecified; I25.118 Atherosclerotic heart disease of native coronary artery with other forms of angina pectoris; E11.9 Type 2 diabetes mellitus without complications; Z79.84 Long term (current) use of oral hypoglycemic drugs; Z79.01 Long term (current) use of anticoagulants; Z79.899 Other long term (current) drug therapy; I25.82 Chronic total occlusion of coronary artery
CPT/HCPCS: 85347; 92928; 93458; 99152; C1725; C1769; C1874; C1876; C9600; J1644; Q9967

== ENCOUNTER → 2022-08-21 13:31 | Outpatient (CLI) | payer MEDICARE, SELFPAY ==
[2022-08-21 14:29] LABS: Basophils # 0.1 K/mm3 (0-0.2); Basophils % 1.6 % (0.1-2.0); Eosinophils # 0.2 K/mm3 (0.0-0.4); Eosinophils % 2.2 % (0.1-12.0); Hematocrit 45.9 % (42.0-52.0); Hemoglobin 15.4 g/dL (14.1-18.0); Lymphocytes # 1.9 K/mm3 (0.7-4.5); Mean Corpuscular HGB Conc 33.5 g/dL (31.8-35.4); Mean Corpuscular Hemoglobin 32.4 pg (27.0-31.2); Mean Corpuscular Volume 96.8 fl (80-94); Mean Platelet Volume 7.2 fl (7.4-10.4); Monocytes # 0.5 K/mm3 (0.1-1.0); Monocytes % 6.9 % (1.7-9.3); Neutrophils # 4.4 K/mm3 (1.8-7.8); Neutrophils % 62.3 % (37.0-80.0); Platelet Count 277 K/mm3 (142-424); Red Blood Count 4.74 M/mm3 (4.60-6.20); Red Cell Distribution Width 13.2 % (11.5-17.5)
[2022-08-21 14:46] LABS: Anion Gap 14.7 mEq/L (5-15); Blood Urea Nitrogen 21 mg/dl (9-20); Calcium 9.5 mg/dl (8.4-10.2); Carbon Dioxide 32 mmol/L (22.0-30.0); Chloride 100 mmol/L (98-107); Estimated Glomerular Filt Rate 54 ml/min (>60); GFR (African American) 66 ML/MIN (>60); Glucose 127 mg/dl (74-100); Potassium 5.7 mmoL/L (3.5-5.1); Sodium 141 mmol/L (136-145)
== END ==
PROVIDERS: PCP Emergency Medicine; Visit Provider Internal Medicine
DX: I25.10 Atherosclerotic heart disease of native coronary artery without angina pectoris (principal); Z95.5 Presence of coronary angioplasty implant and graft
CPT/HCPCS: 36415; 80048; 85025

== ENCOUNTER 2022-08-21 14:03 | Outpatient (RCR) | payer MEDICARE, SELFPAY | END 2022-10-30 15:00 | disposition home or self-care (01) | LOC: PT 14:03 | PROVIDERS: Visit Provider Internal Medicine | DX: I25.10 Atherosclerotic heart disease of native coronary artery without angina pectoris (principal); Z95.5 Presence of coronary angioplasty implant and graft | CPT/HCPCS: 93798 ==

== ENCOUNTER 2023-03-04 13:30 | Emergency (ER) | payer MEDICARE, SELFPAY ==
--- NOTE | 2023-03-04 13:32 | XR_ITS ---
FINAL REPORT CLINICAL HISTORY: FALL, LT HIP PAIN FINDINGS: 2 views of the left hip were obtained. There is no acute fracture or dislocation. The joint spaces are intact. There are no soft tissue abnormalities. IMPRESSION: No acute process. Reviewed, Interpreted and Dictated by Deidre Joe MD Transcribed by Roger Temple Authenticated and [facility]
[2023-03-04 13:35] VITALS: BP 129/73; PULSE 86; RESP 21; TEMP 36.7; O2SAT 96; BMI 35.2
--- NOTE | 2023-03-04 14:03 | EXP.UTC ---
Discharge Plan Disposition Patient Disposition: Home, Self-Care Condition: Good Prescriptions Prescriptions: No Action diclofenac sodium [Voltaren] 1 % gel 2 g TOPICAL QID PRN nitroglycerin [Nitrostat] 0.4 mg tablet, sublingual 0.4 mg SUBLINGUAL Q5-15M PRN (Reason: chest pain) Qty: 90 0RF Rx Instructions: until response; do not exceed 3 doses per episode acetaminophen-codeine 300-30 mg tablet 1 tab PO DAILY PRN (Reason: pain) Qty: 30 1RF buspirone 10 mg tablet 10 mg PO BID Qty: 180 1RF lorazepam [Ativan] 0.5 mg tablet 0.5 mg PO BID PRN (Reason: anxiety) Qty: 30 0RF Xarelto 20 mg tablet See Rx Instructions .ROUTE .COMPLEX Qty: 90 3RF Dose Instruction: TAKE 1 TABLET EVERY DAY WITH EVENING MEAL Rx Instructions: TAKE 1 TABLET EVERY DAY WITH EVENING MEAL spironolactone 25 mg tablet See Rx Instructions .ROUTE .COMPLEX Qty: 90 2RF Dose Instruction: TAKE 1 TABLET EVERY DAY Rx Instructions: TAKE 1 TABLET EVERY DAY furosemide 20 mg tablet See Rx Instructions .ROUTE .COMPLEX Qty: 90 2RF Dose Instruction: TAKE 1 TABLET EVERY DAY Rx Instructions: TAKE 1 TABLET EVERY DAY (DME) lancets [Accu-Chek Fastclix Lancet Drum] Misc See Rx Instructions .ROUTE .COMPLEX Qty: 204 0RF Dose Instruction: USE DIRECTED Rx Instructions: USE DIRECTED pantoprazole 40 mg tablet,delayed release (DR/EC) 40 mg PO DAILY Qty: 90 3RF isosorbide mononitrate 60 mg tablet extended release 24 hr See Rx Instructions .ROUTE .COMPLEX Qty: 90 1RF Dose Instruction: TAKE 1 TABLET EVERY DAY Rx Instructions: TAKE 1 TABLET EVERY DAY Entresto 24-26 mg tablet 1 tab PO BID Qty: 180 3RF clopidogrel [Plavix] 75 mg tablet 75 mg PO DAILY Qty: 90 3RF atorvastatin 40 mg tablet See Rx Instructions .ROUTE .COMPLEX Qty: 90 3RF Dose Instruction: TAKE 1 TABLET EVERY DAY Rx Instructions: TAKE 1 TABLET EVERY DAY carvedilol 25 mg tablet See Rx Instructions .ROUTE .COMPLEX Qty: 180 0RF Dose Instruction: TAKE 1 TABLET TWICE DAILY Rx Instructions: TAKE 1 TABLET TWICE DAILY metformin 500 mg tablet See Rx Instructions .ROUTE .COMPLEX Qty: 180 0RF Dose Instruction: TAKE 1 TABLET TWICE DAILY Rx Instructions: TAKE 1 TABLET TWICE DAILY amlodipine 10 mg tablet See Rx Instructions .ROUTE .COMPLEX Qty: 90 0RF Dose Instruction: TAKE 1 TABLET EVERY DAY Rx Instructions: TAKE 1 TABLET EVERY DAY Referrals Follow up/Referrals: Augustus Romero MD [Primary Care Provider] - See instructions Activity Restrictions/Add. Instructions Additional Instructions/Restrictions: *weight bearing as tolerated use cane to help get around *RICE, Rest the extremity, Ice 15-20 minutes 3-4 times daily, Compress- wear the yuri wrap as discussed as much as possible to help reduce swelling and pain, Elevate the extremity when at rest *Yuri wrap is for support and help control swelling, use it except in the shower. Be sure that is not to tight but not to loose either *Elevate when resting? * Tylenol if you can take it for pain Immediately follow up with your family doctor for new or worsening of symptoms, or no noticeable improvement over the next 3-5 days for further testing and evaluation Clinical Impressions Clinical Impression: Contusion of hip Qualifiers: Encounter type: initial encounter Laterality: left Qualified Code(s): S70.02XA - Contusion of left hip, initial encounter Instructions Patient Instructions: Contusion, Hip Pointers, DI for Contusion Discharge ED Provider: Nella Plata [facility] [place] General Stated complaint: Fall@home 02/25 LT hip pain Mode of Arrival: Ambulatory Source of Information: Patient Limitations: No Limitations Time Seen by Provider: 03/04/23 14:03 Description of Symptoms (Recalled from Triage Doc. by RN): PATIENT C/O LEFT HIP PAIN AFTER FALLING APPRO
[2023-03-04 14:58] VITALS: BP 129/73; PULSE 86; RESP 21; TEMP 36.7; O2SAT 96
== END 2023-03-04 15:09 | disposition home or self-care (01) ==
PROVIDERS: Emergency Provider Nurse Practitioner; PCP Emergency Medicine
DX: S70.02XA Contusion of left hip, initial encounter (principal); I11.9 Hypertensive heart disease without heart failure; E78.5 Hyperlipidemia, unspecified; G47.33 Obstructive sleep apnea (adult) (pediatric); Z87.891 Personal history of nicotine dependence; W19.XXXA Unspecified fall, initial encounter; E11.9 Type 2 diabetes mellitus without complications; Z79.84 Long term (current) use of oral hypoglycemic drugs; I48.91 Unspecified atrial fibrillation
CPT/HCPCS: 73502; 96372; 99204; 99212; G0463

== ENCOUNTER → 2023-03-28 10:35 | Outpatient (CLI) | payer MEDICARE, SELFPAY ==
--- NOTE | 2023-03-28 10:39 | XR_ITS ---
FINAL REPORT TECHNIQUE: Three views right knee CLINICAL HISTORY: rt knee pain COMPARISON: None FINDINGS: There is no acute fracture or dislocation. The joint spaces are intact. There is no soft tissue abnormality. IMPRESSION: No acute fracture Reviewed, Interpreted and Dictated by Anselmo Broussard MD Transcribed by Sonal Moise Authenticated and [facility]
--- NOTE | 2023-03-28 10:39 | XR_ITS ---
FINAL REPORT CLINICAL HISTORY: pain COMPARISON: None FINDINGS: RIGHT HIP Two views of the right hip demonstrate no acute fracture or dislocation. The joint spaces appear normal. The visualized bony structures are well aligned. No soft tissue abnormality is seen. IMPRESSION: No acute bony abnormality. Reviewed, Interpreted and Dictated by Anselmo Broussard MD Transcribed by Sonal Moise Authenticated and [facility]
== END ==
PROVIDERS: PCP Emergency Medicine; Visit Provider Orthopaedic Surgery
DX: M25.561 Pain in right knee; M25.551 Pain in right hip
CPT/HCPCS: 73502; 73562

== ENCOUNTER → 2023-08-02 16:44 | Outpatient (CLI) | payer MEDICARE, SELFPAY ==
[2023-08-02 15:51] LABS: Basophils # 0.1 K/mm3 (0-0.2); Basophils % 0.9 % (0.1-2.0); Eosinophils # 0.2 K/mm3 (0.0-0.4); Eosinophils % 2.7 % (0.1-12.0); Hematocrit 50.1 % (42.0-52.0); Hemoglobin 15.8 g/dL (14.1-18.0); Lymphocytes # 2.2 K/mm3 (0.7-4.5); Lymphocytes % 34.2 % (10-50); Mean Corpuscular HGB Conc 31.6 g/dL (31.8-35.4); Mean Corpuscular Hemoglobin 31.2 pg (27.0-31.2); Mean Corpuscular Volume 98.8 fl (80-94); Mean Platelet Volume 8.5 fl (7.4-10.4); Monocytes # 0.5 K/mm3 (0.1-1.0); Monocytes % 7.9 % (1.7-9.3); Neutrophils # 3.5 K/mm3 (1.8-7.8); Neutrophils % 54.4 % (37.0-80.0); Platelet Count 254 K/mm3 (142-424); Red Blood Count 5.07 M/mm3 (4.60-6.20); Red Cell Distribution Width 13.4 % (11.5-17.5); White Blood Count 6.4 K/mm3 (4.8-10.8)
[2023-08-02 16:40] LABS: Alanine Aminotransferase 30 U/L (12-78); Albumin Level 4.1 g/dl (3.5-5.0); Albumin/Globulin Ratio 1.6 (1.1-1.8); Alkaline Phosphatase 30 U/L (38-126); Anion Gap 14.2 mEq/L (5-15); Aspartate Amino Transferase 27 U/L (17-59); Bilirubin,Total 1.5 mg/dl (0.2-1.3); Blood Urea Nitrogen 18 mg/dl (9-20); Calcium 9.2 mg/dl (8.4-10.2); Carbon Dioxide 28 mmol/L (22.0-30.0); Chloride 105 mmol/L (98-107); Cholesterol 106 mg/dl (140-200); Estimated Glomerular Filt Rate 73 ml/min (>60); GFR (African American) 89 ML/MIN (>60); Globulin 2.5 g/dL (1.3-3.2); Glucose 103 mg/dl (74-100); HDL Cholesterol 35 mg/dl (40-60); Potassium 5.2 mmoL/L (3.5-5.1); Sodium 142 mmol/L (136-145); Total Protein,Serum 6.6 g/dl (6.3-8.2); Triglycerides 75 mg/dl (30-150); VLDL Cholesterol 15 mg/dL (0-40)
[2023-08-02 16:51] LABS: Direct LDL Cholesterol 63.26 mg/dL (100-129)
[2023-08-02 16:54] LABS: Hemoglobin A1C 6.1 % (4.0-6.0)
[2023-08-02 17:00] LABS: Free T4 (Free Thyroxine) 1.08 ng/dl (0.78-2.19)
[2023-08-02 17:01] LABS: 25-OH Vitamin D, Total 40.8 ng/mL (30-100)
[2023-08-02 17:14] LABS: Thyroid Stimulating Hormone 2.86 uIU/mL (0.465-4.68)
== END ==
PROVIDERS: PCP Internal Medicine; Visit Provider Internal Medicine
DX: I25.10 Atherosclerotic heart disease of native coronary artery without angina pectoris (principal); Z00.00 Encounter for general adult medical examination without abnormal findings; Z13.220 Encounter for screening for lipoid disorders; Z13.21 Encounter for screening for nutritional disorder; Z68.34 Body mass index [BMI] 34.0-34.9, adult; R60.0 Localized edema; Z13.29 Encounter for screening for other suspected endocrine disorder; I11.9 Hypertensive heart disease without heart failure; E11.9 Type 2 diabetes mellitus without complications; Z79.84 Long term (current) use of oral hypoglycemic drugs; Z87.891 Personal history of nicotine dependence
CPT/HCPCS: 80053; 80061; 82306; 83036; 84439; 84443; 85025

== ENCOUNTER → 2023-10-22 06:09 | Outpatient (CLI) | payer MEDICARE, SELFPAY ==
--- NOTE | 2023-10-22 | CA_ITS ---
APPROVED REPORT Exam: Pharmacologic Technologist: Luz Maria Cabral, Ht: 5 ft 10 in Wt: 255 lbs BSA: 2.31 m2 HR: 66 bpm BP: 99/60 mmHg Rhythm: Atrial Fibrillation Medical History Medications: Amlodipine,,,,, Metformin,,,,, Pantoprazole,,,,, Atorvastatin,,,,, Carvedilol,,,,, Glipizide,,,,, Buspirone,,,,, Plavix,,,,, Valium,,,,, Nitroglycerin,,,,, SpirOnolactone,,,,, Furosemide,,,,, Cardiac Risk Factors: HTN, Hyperlipidemia, Smoking Stress Test Details Test: LEXISCAN HR Resting HR: 73 bpm Max Heart Rate (APMHR): 147 bpm Max HR Achieved: 95 bpm Target HR (85% APMHR): 125 bpm % of APMHR: 65 Recovery HR: 83 bpm BP Resting BP: 99/60 mmHg Max BP: 101/67 mmHg Recovery BP: 101.0/67.0 mmHg ECG Resting ECG: Atrial fibrillation, nonspecific T wave changes, PVCs Stress ECG: No significant ST changes Arrhythmia: PVCs Clinical Exercise duration: 04:01 min Highest Stage Achieved: Exercise capacity: 1.0 METs Stress ECG Conclusion During lexiscan pt developed a warmth sensation. Ectopy: PVCs No significant ST changes Conclusion: EKG portion is unremarkable due to lexiscan infusion. Myoview images are reported separately. Test Summary REST . . . . . . . Sitting REST 32:50 . . 73 . 99/ 60 . . Stage 1 . . . . . . . Myoview Injected Stage 1 01:00 . . 89 . . . . Stage 2 01:00 . . 80 . 100/ 50 . . Stage 3 01:00 . . 74 . . . . Stage 4 01:00 . . 80 . 98/ 67 . . Stage 4 01:01 . . 70 . 98/ 67 . Stop exercise at 04:01 RECOVERY 01:00 . . 76 . . . . RECOVERY 02:00 . . 76 . 101/ 67 . . RECOVERY 02:24 . . 72 . 100/ 57 . . Electronically signed by : Krissy Sandhu MD 10/23/2023 00:01:13
--- NOTE | 2023-10-22 06:26 | NM_ITS ---
APPROVED REPORT Exam: Nuclear Stress Test Indication: chest pain..soa..palpitations..fatigue Patient Location: Outpatient Stress Tech: Luz Maria HONEYCUTT Tech:RAFAT Ellis RT(R)(N) Ht: 5 ft 10 in Wt: 246 lbs HR: 73 bpm BP: 99/60 mmHg BSA: 2.28 m2 TID: 1.36 BMI: 35.2 History: chest pain..soa..palpitations..fatigue Procedure: Patient received 0.4 mg of intravenous Lexiscan, resting heart rate 73 bpm, resting blood pressure 99/60 mmHg, with Lexiscan maximum heart rate achieved was 95 bpm which is 85 % of the maximum predicted heart rate and blood pressure was 101/67 mmHg. With Lexiscan, patient denied any complaint of chest pain. Cardiac Stress and Resting SPECT Images: Cardiac Stress and Resting SPECT images were obtained using technetium 99m Myoview 31.0 mCi stress and 10.41 mCi at rest. Technically difficult study due to significant soft tissue overlap with the cardiac borders. This may affect the diagnostic interpretation of the study findings. Resting and stress imaging in supine and prone positions demonstrate a medium sized, moderate, partially reversible perfusion defect in the basal to mid inferior LV wall. There is also a partially reversible perfusion defect in the basal anterior LV wall. There is increased transient ischemic dilatation ratio (TID 1.36), suggestive of possible multivessel disease or balanced ischemia. Gated imaging demonstrates normal global LV systolic function. There is mild hypokinesis of the basal inferior LV wall LVEF is calculated at 62%. Conclusion: Technically difficult study. Medium sized, moderate, partially reversible perfusion defect in the basal to mid inferior LV wall. There is also a partially reversible perfusion defect in the basal anterior LV wall. There is increased transient ischemic dilatation ratio (TID 1.36), suggestive of possible multivessel disease or balanced ischemia. Gated imaging demonstrates normal global LV systolic function. There is mild hypokinesis of the basal inferior LV wall LVEF is calculated at 62%. Electronically signed by : Krissy Sandhu MD 10/23/2023 00:04:57
--- NOTE | 2023-10-22 07:03 | CA_ITS ---
APPROVED REPORT EXAM: Comprehensive 2D, Doppler, and color-flow Echocardiogram Divinity Teacher: Jackelin Prado CRT Ht: 5 ft 10 in Wt: 254lbs BSA: 2.31 BP: 108/67 mmHg Indications: Chest Pain, Shortness of Breath, Atrial Fibrillation, Obesity, Hyperlipidemia, Hypertension/HDD, LIBIA, Stents 2D Dimensions Left Atrium 5.05 cm LVEF (Silva's) 52.20 % LVOT 2.01 cm (M/F) 1.5-2.5 LV Volume 68.60 mL LA Volume 46.00 mL LA Volume Index 19.90 mL/m2 (M/F) 16-34 EF AP4 53.70 % EF AP2 45.9 % EF BP 52.2 % GL Strain -11.8 % M-Mode Dimensions RVDd 2.59 cm (0.9-2.6) LVDd 5.95 cm (3.5-5.7) Ao Diam 3.41 cm (2.0-3.7) LVDs 3.82 cm (3.5-5.7) IVSd 1.70 cm (0.6-1.1) PWd 0.93 cm (0.6-1.1) EF (Teich) 64.50% FS 35.80% EDV (Teich) 176.60 mL TAPSE 1.93 (<1.7) ESV (Teich) 62.70 mL LV Diastology E Decel Time 169 (160-240 msec) E/A Ratio 11.11 MED E' 9.7 (>= 7 cm/sec) MED A' 3.20 cm/s E'/MED E' Ratio 11.34 (<= 14) LAT E' 8.9 (>= 10 cm/sec) LAT A' 4.50 cm/s E/LAT E' Ratio 12.36 (<= 14) Aortic Valve AoV Peak Spencer. 132.0 (50-130 cm/s) AO Peak GR. 6.90 mmHg Mitral Valve MV E Max Spencer. 110.0 (40-130 cm/s) MV A Velocity 10.0 (40-130 cm/s) E/A Ratio 11.11 MV Decel. Time 169 (160-240 ms) Tricuspid Valve TR P. Velocity 277.00 cm/s RAP Estimate 10.00 mmHg RVSP 40.70 mmHg Left Ventricle The left ventricle is normal size. The left ventricular systolic function is normal. The left ventricular ejection fraction is within the normal range. There is increased LV wall thickness. Regional wall motion abnormalities are difficult to estimate due to technically difficult study, but grossly LV wall motion appears normal. Diastolic function is indeterminate due to atrial fibrillation. LVEF is 60%. Right Ventricle The right ventricle appears mildly dilated. The right ventricular systolic function is normal. Atria Left atrium is moderately dilated. Right atrium is moderately dilated. Aortic Valve The aortic valve is mildly thickened. There is no aortic valvular stenosis. Trace aortic regurgitation. Mitral Valve Mild mitral annular calcification. The mitral valve leaflets are mildly thickened. No evidence of mitral valve stenosis. Mild mitral regurgitation. Tricuspid Valve The tricuspid valve leaflets are thin and pliable. Mild tricuspid regurgitation. RVSP is 30 mmHg + RA pressure. Pulmonic Valve The pulmonary valve is normal in structure. Trace pulmonic regurgitation. Great Vessels The aortic root is normal in size. The ascending aorta is normal in size. The IVC is not well-visualized. Pericardium There is no pericardial effusion. Other Information Study Quality: Technically Difficult Conclusion Technically difficult study due to poor acoustic windows. Normal biventricular systolic function. Mild RV dilation. Mild MR. Mild TR. RVSP is 30 mmHg + RA pressure. Electronically signed by : Krissy Sandhu MD 10/22/2023 22:35:37
== END ==
PROVIDERS: PCP Internal Medicine; Visit Provider Physician Assistant
DX: I11.9 Hypertensive heart disease without heart failure (principal); I25.10 Atherosclerotic heart disease of native coronary artery without angina pectoris; I34.0 Nonrheumatic mitral (valve) insufficiency; I48.91 Unspecified atrial fibrillation; R06.00 Dyspnea, unspecified; R06.01 Orthopnea; R06.02 Shortness of breath; R07.9 Chest pain, unspecified; R42 Dizziness and giddiness; E78.5 Hyperlipidemia, unspecified; E66.9 Obesity, unspecified; Z68.36 Body mass index [BMI] 36.0-36.9, adult; Z87.891 Personal history of nicotine dependence
CPT/HCPCS: 78452; 93017; 93018; 93306; A9502; J2785

== ENCOUNTER 2023-11-05 12:34 | Outpatient (CLI) | payer MEDICARE, SELFPAY ==
[2023-11-05 13:58] LABS: Hemoglobin A1C 6.2 % (4.0-6.0)
== END 2023-11-05 23:59 ==
LOC: LAB.DROPOF 12:34
PROVIDERS: PCP Internal Medicine; Visit Provider Internal Medicine
DX: E11.9 Type 2 diabetes mellitus without complications (principal); Z79.84 Long term (current) use of oral hypoglycemic drugs
CPT/HCPCS: 83036

== ENCOUNTER 2023-11-06 07:47 | Day surgery (SDC) | payer MEDICARE, SELFPAY ==
[2023-11-06] VITALS (18 sets, daily range): BP systolic 90–137; BP diastolic 42–104; PULSE 62–81; RESP 16–18; TEMP 36.2–36.6; O2SAT 92–98; BMI 35.3
--- NOTE | 2023-11-06 07:07 | IR_ITS ---
APPROVED REPORT Patient Location: Outpatient Timber Buyer: RAFAT Smith RT (R) PROCEDURES Left heart catheterization Left ventriculogram Selective coronary angiogram INDICATION Known coronary artery disease, Persistent recalcitrant angina pectoris Informed consent was obtained prior to the procedure. COMPLICATIONS None Estimated Blood Loss: Less than 10 mls TECHNIQUE One percent lidocaine used to anesthetize the right anterior aspect of the wrist. The right radial artery was accessed via the Seldinger technique. A 6 Surinamese sheath was placed in the right radial artery. 2.5 mg of Verapamil, 800 mcg of nitroglycerin, 1mg Lidocaine and 5000 U Heparin were given through the arterial sheath. The papa catheter was also used to perform left heart catheterization, left ventriculogram and selective coronary angiogram. At the end of the procedure the sheath was removed good hemostasis was achieved using Traclet band, patient was transferred to the postop holding area in stable condition. ANGIOGRAPHIC RESULTS The left main artery Normal The left anterior descending artery Has a stent in the proximal to mid segment which is widely patent with minimal in-stent restenosis. There is excellent distal transitioning. The distal LAD has a 70 to 80% concentric stenosis just proximal to the apex. The vessel then wraps the apex and supplies a portion of the inferior wall. A moderate-sized second diagonal artery has a proximal 50% stenosis The circumflex artery Is a nondominant vessel and has a stent in the proximal segment which is widely patent with minimal in-stent restenosis The right coronary artery Is a dominant vessel subtotally occluded in the distal segment with extensive [id number] collaterals The HANCOCK ventriculogram reveals Slightly reduced at 45% The left ventricular end-diastolic pressure 15 mmHg IMPRESSION Coronary disease as described above Reduced ejection fraction with anterior wall hypokinesis and borderline normal LVEDP PLAN 1. Maximize antianginal medication Electronically signed by : Alfredito Gooden MD 11/06/2023 13:00:45
[2023-11-06 08:23] LABS: Basophils # 0.1 K/mm3 (0-0.2); Eosinophils # 0.2 K/mm3 (0.0-0.4); Eosinophils % 2.3 % (0.1-12.0); Hematocrit 48.4 % (42.0-52.0); Hemoglobin 16.6 g/dL (14.1-18.0); Lymphocytes # 2.3 K/mm3 (0.7-4.5); Lymphocytes % 30.6 % (10-50); Mean Corpuscular HGB Conc 34.2 g/dL (31.8-35.4); Mean Corpuscular Hemoglobin 32.6 pg (27.0-31.2); Mean Corpuscular Volume 95.4 fl (80-94); Mean Platelet Volume 7.6 fl (7.4-10.4); Monocytes # 0.5 K/mm3 (0.1-1.0); Neutrophils # 4.4 K/mm3 (1.8-7.8); Neutrophils % 59.2 % (37.0-80.0); Platelet Count 219 K/mm3 (142-424); Red Blood Count 5.08 M/mm3 (4.60-6.20); Red Cell Distribution Width 13.4 % (11.5-17.5); White Blood Count 7.4 K/mm3 (4.8-10.8)
[2023-11-06 08:35] LABS: Anion Gap 8.4 mEq/L (5-15); Blood Urea Nitrogen 17 mg/dl (9-20); Calcium 8.7 mg/dl (8.4-10.2); Carbon Dioxide 29 mmol/L (22.0-30.0); Chloride 104 mmol/L (98-107); Creatinine Clearance Estimated 87 mL/min (50-200); Estimated Glomerular Filt Rate 59 ml/min (>60); GFR (African American) 72 ML/MIN (>60); Glucose 109 mg/dl (74-100); Potassium 4.4 mmoL/L (3.5-5.1); Sodium 137 mmol/L (136-145)
[2023-11-06] MEDS: 0.9 % SODIUM CHLORIDE 500 ML 25 ML IV (08:52)
[2023-11-06] MEDS: HEPARIN 1,000 UNITS/500ML NS (CATH LAB) 3000 UNIT IV (08:52)
[2023-11-06] MEDS: HEPARIN 1,000 UNITS/ML 10ML VIAL (CATH LAB) 10000 UNIT IV (08:52)
[2023-11-06] MEDS: LIDOCAINE 1% 10ML MDV 20 ML IJ (08:54)
[2023-11-06] MEDS: diphenhydrAMINE 50MG/ML VIAL 50 MG IV (08:54)
[2023-11-06] MEDS: NITROGLYCERIN 800MCG/8ML SYR (CATH LAB) 800 MCG IA (08:54)
[2023-11-06] MEDS: VERAPAMIL 2.5MG/ML 2ML VIAL 2.5 MG IV (08:54)
[2023-11-06] MEDS: FENTANYL 100MCG/2ML VIAL 50 MCG IV (09:15)
[2023-11-06] MEDS: MIDAZOLAM HCL 1MG/1ML 5ML VIAL 1 MG IV (09:15)
[2023-11-06] MEDS: IOPAMIDOL-370 (76%);100ML BOTTLE 50 ML IV (09:59)
--- NOTE | 2023-11-06 11:55 | ECG_ITS ---
APPROVED REPORT Exam: Resting ECG HR:66 bpm ECG Measurements Heart Rate 66 AXES QRSd 106 QRS 55 QT 397 T 17 QTc 410 Conclusion ATRIAL FIBRILLATION ABNORMAL RHYTHM ECG UNCONFIRMED REPORT Electronically signed by : Antwon Franklin MD 11/07/2023 20:11:42
--- NOTE | 2023-11-06 12:40 | CA_ITS ---
APPROVED REPORT EXAM: Comprehensive 2D, Doppler, and color-flow Echocardiogram Barrel Filler: Melissa Davies RVT Ht: 5 ft 10 in Wt: 246lbs BSA: 2.28 BP: 118/63 mmHg Indications: A-FIB,CP,PALPS,EX SMOKER,LIBIA,BRADYCARDIA Procedure After obtaining informed consent, patient underwent transesophageal echo in the [facility]. Type of Sedation : MAC Sedation was administered by Reymundo Stanford C.R.N.A. Sedation start time: 13:45 Case end Time: 14:15 Sedation was achieved intravenously with: Propofol () The REN was performed without complications. Synchronized Cardioversion attempted: Unsuccessful Rhythm following Synchronized Cardioversion: atrial fibrillation Throughout the procedure, the blood pressure, pulse oximetry, cardiac rhythm, and rate were monitored. The patient tolerated the procedure without adverse effects. Recovery from conscious sedation was uneventful and vital signs were stable. Left Ventricle The left ventricle is normal size. The left ventricular systolic function is normal. The left ventricular ejection fraction is within the normal range. There is increased LV wall thickness. There is normal LV segmental wall motion. LVEF is 55%. Right Ventricle Right ventricle is mildly dilated. The right ventricular systolic function is normal. Atria The left atrium is dilated. There is no thrombus suspected in the left atrium or the left atrial appendage. The right atrium is dilated. Interatrial septum is intact without evidence of ASD or PFO. Aortic Valve The aortic valve is mildly thickened. The aortic valve is trileaflet. There is no aortic valvular stenosis. Trace aortic regurgitation. Mitral Valve The mitral valve is mildly thickened. No evidence of mitral valve stenosis. Mild mitral regurgitation. Tricuspid Valve The tricuspid valve leaflets are thin and pliable. Mild to moderate tricuspid regurgitation. RVSP is 30 mmHg + RA pressure. Pulmonic Valve The pulmonary valve is normal in structure. Trace pulmonic regurgitation. Great Vessels The aortic root is normal in size. The ascending aorta is normal in size. Pericardium There is no pericardial effusion. Other Information Study Quality: Fair Conclusion Normal biventricular systolic function. Mild RV dilation. Biatrial dilation. Mild MR. Mild to moderate TR. Following REN, the patient underwent 2 DCCV attempts (150 J and 200 J), both of which resulted in no change in rhythm. He remained in AFib during and after the procedure. Electronically signed by : Krissy Sandhu MD 11/08/2023 14:20:26
[2023-11-06 12:44] LABS: INR 1.11 (0.9-1.1); Prothrombin Time 11.9 seconds (10.1-12.5)
--- NOTE | 2023-11-06 13:27 | P.PNANES_ITS ---
[facility] Disclaimer: The information contained in this section may have been updated after the patient was seen, as this information can be updated by other users. Medical History Atrial fibrillation Chest pain Coronary arteriosclerosis Dizziness Hyperlipidemia Hypertensive heart disease without heart failure LV dysfunction Major depressive disorder Obstructive sleep apnea Palpitations Sinus bradycardia Syncope Typical angina Surgical History H/O colonoscopy H/O heart artery stent H/O right heart catheterization Family History Other Coronary artery disease Diabetes Heart attack Hyperlipidemia Hypertension Social History Smoking Status: Former smoker second hand exposure: No alcohol intake: former counseling provided: none substance use type: denies use current occupational status: retired Travel in the last 8 weeks: None household members: spouse housing: house number of children: 2 current occupational exposures/hazards: No caffeine: No [facility] Anesthesia Checklist Patient Identification Patient Identification: Arm Band, Family and Verbal (Name & ) Structural Data Admitted From: Inpatient (s/p Inside Sales Coordinator) Planned Operative Procedure/s: REN w/cardioversion Consent for Planned Operative Procedure(s) Verified: Yes Verified Documents: Surgical Consent and History and Physical NPO Status Verified Time NPO: 09:00 Chart Verification Results Verified: CBC, BMP, PT, PTT, INR and ECG Additional verifications Fingerstick Blood Glucose: 94 Patient : No Anesthesia Reactions: No Cardiovascular Assessment Pulse Rhythm: Irregular Peripheral Edema: Yes (2+ MAYNOR LE) Airway Assessment Mallampati Score:: Class I C-Spine Mobility Assessed: Yes (FROM) TMJ Mobility Assessed: Yes Dentition: Poor Dentition (Upper dentures out. Nothing loose per pt.) Neurological Assessment Level of Consciousness: Awake, Alert, Appropriate and Follows Commands Hx Seizures: No Numbness or tingling in extremities: No Anesthesia Plan Anesthesia Risk discussed: Yes Anesthesia Plan: Verified ASA Class: III Anesthesia Type: MAC
[2023-11-06] MEDS: RIVAROXABAN 10MG TABLET 20 MG PO (13:40)
[2023-11-06 13:47] LABS: POC Glucose,Bedside 94 (70-110)
== END 2023-11-06 14:40 | disposition home or self-care (01) ==
PROVIDERS: Internal Medicine; PCP Internal Medicine; Visit Provider Internal Medicine
DX: E66.9 Obesity, unspecified (principal); E78.5 Hyperlipidemia, unspecified; G47.33 Obstructive sleep apnea (adult) (pediatric); I11.9 Hypertensive heart disease without heart failure; I34.0 Nonrheumatic mitral (valve) insufficiency; I48.91 Unspecified atrial fibrillation; M79.602 Pain in left arm; R06.00 Dyspnea, unspecified; R42 Dizziness and giddiness; R94.39 Abnormal result of other cardiovascular function study; I25.118 Atherosclerotic heart disease of native coronary artery with other forms of angina pectoris
CPT/HCPCS: 80048; 82962; 85025; 85610; 92960; 93005; 93270; 93312; 93319; 93458; 99152; C1725; C1760; C1769; J1644; Q9967

== ENCOUNTER 2024-02-19 18:55 | Outpatient (CLI) | payer MEDICARE, SELFPAY ==
[2024-02-19 19:41] LABS: Creatinine,Urine Random 98 mg/dL (Not Estab.)
[2024-02-19 19:44] LABS: Microalbumin < 6.000 mg/L (0-16.7)
== END 2024-02-19 23:59 | disposition home or self-care (01) ==
LOC: LAB 18:56
PROVIDERS: PCP Internal Medicine; Visit Provider Internal Medicine
DX: E11.42 Type 2 diabetes mellitus with diabetic polyneuropathy (principal); Z79.84 Long term (current) use of oral hypoglycemic drugs
CPT/HCPCS: 82043; 82570

== ENCOUNTER 2024-04-06 16:28 | Outpatient (CLI) | payer MEDICARE, SELFPAY ==
[2024-04-06 15:10] LABS: Alanine Aminotransferase 24 U/L (12-78); Albumin Level 4.1 g/dl (3.5-5.0); Albumin/Globulin Ratio 1.5 (1.1-1.8); Alkaline Phosphatase 45 U/L (38-126); Anion Gap 15.8 mEq/L (5-15); Aspartate Amino Transferase 24 U/L (17-59); Bilirubin,Total 1.5 mg/dl (0.2-1.3); Blood Urea Nitrogen 16 mg/dl (9-20); Calcium 9.6 mg/dl (8.4-10.2); Carbon Dioxide 26 mmol/L (22.0-30.0); Chloride 102 mmol/L (98-107); Chol/HDL Ratio 2.6 (1-3.5); Cholesterol 105 mg/dl (140-200); Estimated Glomerular Filt Rate 66 ml/min (>60); GFR (African American) 79 ML/MIN (>60); Globulin 2.7 g/dL (1.3-3.2); Glucose 104 mg/dl (74-100); HDL Cholesterol 41 mg/dl (40-60); Magnesium 2.1 mg/dl (1.6-2.3); Potassium 4.8 mmoL/L (3.5-5.1); Sodium 139 mmol/L (136-145); Total Protein,Serum 6.8 g/dl (6.3-8.2); Triglycerides 88 mg/dl (30-150); VLDL Cholesterol 18 mg/dL (0-40)
[2024-04-06 15:22] LABS: Direct LDL Cholesterol 53.77 mg/dL (100-129)
[2024-04-06 15:52] LABS: Ferritin 41.3 ng/ml (17.9-464)
[2024-04-06 16:00] LABS: Vitamin B12 419 pg/mL (239-931)
[2024-04-07 10:51] LABS: Hemoglobin A1C 6.3 % (4.0-6.0)
== END 2024-04-06 23:59 | disposition home or self-care (01) ==
LOC: LAB.DROPOF 16:29
PROVIDERS: PCP Nurse Practitioner Family; Visit Provider Nurse Practitioner Family
DX: E11.42 Type 2 diabetes mellitus with diabetic polyneuropathy (principal); G62.9 Polyneuropathy, unspecified; E78.2 Mixed hyperlipidemia; D64.9 Anemia, unspecified; Z68.32 Body mass index [BMI] 32.0-32.9, adult; Z79.84 Long term (current) use of oral hypoglycemic drugs
CPT/HCPCS: 80053; 80061; 82607; 82728; 83036; 83735

== ENCOUNTER 2024-05-19 14:23 | Outpatient (CLI) | payer MEDICARE, SELFPAY ==
[2024-05-19 13:23] LABS: Chol/HDL Ratio 2.8 (1-3.5); Cholesterol 119 mg/dl (140-200); HDL Cholesterol 42 mg/dl (40-60); Triglycerides 89 mg/dl (30-150); VLDL Cholesterol 18 mg/dL (0-40)
[2024-05-19 13:34] LABS: Direct LDL Cholesterol 55.95 mg/dL (100-129)
[2024-05-22 17:43] LABS: Free Testosterone (Direct) 4.3 pg/mL (6.6-18.1); Testosterone, Total, LC/MS 434.7 ng/dL (264.0-916.0)
== END 2024-05-19 23:59 | disposition home or self-care (01) ==
LOC: LAB.DROPOF 14:24
PROVIDERS: PCP Nurse Practitioner Family; Visit Provider Nurse Practitioner Family
DX: E78.6 Lipoprotein deficiency (principal)
CPT/HCPCS: 80061; 82533

== ENCOUNTER 2024-06-02 13:36 | Outpatient (CLI) | payer MEDICARE, SELFPAY ==
[2024-06-02 13:53] LABS: Chol/HDL Ratio 3.7 (1-3.5); Cholesterol 168 mg/dl (140-200); HDL Cholesterol 45 mg/dl (40-60); Triglycerides 91 mg/dl (30-150); VLDL Cholesterol 18 mg/dL (0-40)
[2024-06-02 14:05] LABS: Direct LDL Cholesterol 94.05 mg/dL (100-129)
== END 2024-06-02 23:59 | disposition home or self-care (01) ==
LOC: LAB.DROPOF 13:36
PROVIDERS: PCP Nurse Practitioner Family; Visit Provider Nurse Practitioner Family
DX: E78.6 Lipoprotein deficiency (principal)
CPT/HCPCS: 80061; 82533

== ENCOUNTER 2024-07-06 14:54 | Outpatient (CLI) | payer MEDICARE, SELFPAY ==
[2024-07-06 15:02] LABS: Alanine Aminotransferase 32 U/L (12-78); Albumin/Globulin Ratio 1.4 (1.1-1.8); Alkaline Phosphatase 37 U/L (38-126); Anion Gap 9.9 mEq/L (5-15); Aspartate Amino Transferase 27 U/L (17-59); Bilirubin,Total 1.7 mg/dl (0.2-1.3); Blood Urea Nitrogen 16 mg/dl (9-20); Calcium 9.4 mg/dl (8.4-10.2); Carbon Dioxide 30 mmol/L (22.0-30.0); Chloride 106 mmol/L (98-107); Estimated Glomerular Filt Rate 83 ml/min (>60); GFR (African American) 100 ML/MIN (>60); Globulin 2.8 g/dL (1.3-3.2); Glucose 113 mg/dl (74-100); Potassium 4.9 mmoL/L (3.5-5.1); Sodium 141 mmol/L (136-145); Total Protein,Serum 6.8 g/dl (6.3-8.2)
[2024-07-06 15:51] LABS: Vitamin B12 538 pg/mL (239-931)
[2024-07-06 17:51] LABS: Hemoglobin A1C 6.9 % (4.0-6.0)
== END 2024-07-06 23:59 | disposition home or self-care (01) ==
LOC: LAB.DROPOF 14:55
PROVIDERS: PCP Nurse Practitioner Family; Visit Provider Nurse Practitioner Family
DX: G62.9 Polyneuropathy, unspecified; I48.91 Unspecified atrial fibrillation; E11.42 Type 2 diabetes mellitus with diabetic polyneuropathy
CPT/HCPCS: 80053; 82607; 83036

== ENCOUNTER 2024-10-16 09:35 | Outpatient (CLI) | payer MEDICARE, SELFPAY ==
[2024-10-16 10:36] LABS: Hemoglobin A1C 7.3 % (4.0-6.0)
[2024-10-16 10:44] LABS: Cholesterol 116 mg/dl (140-200); HDL Cholesterol 39 mg/dl (40-60); Triglycerides 92 mg/dl (30-150); VLDL Cholesterol 18 mg/dL (0-40)
[2024-10-16 10:55] LABS: Direct LDL Cholesterol 60.88 mg/dL (100-129)
[2024-10-19 17:09] LABS: Adrenocorticotropic Hormone 56.8 pg/mL (7.2-63.3)
[2024-10-26 12:09] LABS: Renin Activity, Plasma 0.828 ng/mL/hr (0.167-5.380)
== END 2024-10-16 23:59 | disposition home or self-care (01) ==
LOC: LAB 09:36
PROVIDERS: PCP Internal Medicine; Visit Provider Internal Medicine
DX: R79.89 Other specified abnormal findings of blood chemistry (principal); E11.9 Type 2 diabetes mellitus without complications; E78.5 Hyperlipidemia, unspecified
CPT/HCPCS: 36415; 80061; 82024; 82088; 82533; 83036; 84244

== ENCOUNTER 2025-03-09 18:25 | Inpatient (IN) | payer MEDICARE, MEDICAID, SELFPAY ==
[2025-03-09] VITALS (16 sets, daily range): BP systolic 119–144; BP diastolic 68–95; PULSE 60–90; RESP 12–38; TEMP 36.7–36.8; O2SAT 88–98; BMI 35.9; BMI 31.4
--- NOTE | 2025-03-09 18:32 | PC.NURSE ---
Blood collected by EMS and sent to lab.
--- NOTE | 2025-03-09 18:40 | ED_ITS ---
Discharge Plan Disposition Patient Disposition: Admitted Chief Complaint: Chest Pain Clinical Impressions Clinical Impression: Angina pectoris, unstable Discharge ED Provider: Markell Hale HPI General Chief Complaint: Chest Pain Stated Complaint: Chest Pain Time Seen by Provider: 03/09/25 18:40 History of Present Illness HPI narrative: Patient is 74-year-old male past medical history of ACS status post stenting who presents to the emergency department for evaluation of chest pain. Onset was acute, occurring since 530, substernal, severe, does not radiate through his back. He also has a history of atrial fibrillation for which he is on rivaroxaban. He took nitroglycerin prior to EMS arrival with partial resolution of his pain. Due to persistent symptoms he presents here for continued evaluation. No cough, no abdominal pain, no other acute complaints at this time. Related Data Home Medications ?Medication ?Instructions ?Recorded ?Confirmed clopidogrel 75 mg tablet 75 mg PO DAILY 07/06/24 03/09/25 Previous Rx's ?Medication ?Instructions ?Recorded pantoprazole 40 mg tablet,delayed 40 mg PO DAILY #90 tabs 05/05/24 release sacubitril 24 mg-valsartan 26 mg 1 tab PO BID #180 tabs 05/05/24 tablet (Entresto) nitroglycerin 0.4 mg sublingual See Rx Instructions .Route 07/21/24 tablet .COMPLEX #25 tabs empagliflozin 25 mg tablet See Rx Instructions .Route 07/28/24 (Jardiance) .COMPLEX #90 tabs atorvastatin 10 mg tablet 10 mg PO DAILY #90 tabs 10/27/24 carvedilol 25 mg tablet 25 mg PO BID 90 days #180 tabs 11/10/24 isosorbide mononitrate 30 mg 30 mg PO DAILY #90 tabs 12/29/24 tablet,extended release 24 hr rivaroxaban 20 mg tablet (Xarelto) 20 mg PO DAILY #90 tabs 12/29/24 buspirone 10 mg tablet 10 mg PO BID #180 tabs 01/06/25 diazepam 5 mg tablet (Valium) 5 mg PO BID PRN anxiety #60 tabs 01/06/25 trazodone 50 mg tablet See Rx Instructions PO HS PRN 01/13/25 sleep #60 tabs lancets (Accu-Chek Fastclix Lancet #100 ea 01/19/25 Drum) blood sugar diagnostic (Accu-Chek #100 ea 02/03/25 SmartView Test Strips) desvenlafaxine succinate 50 mg 50 mg PO DAILY #30 tabs 02/04/25 tablet,extended release 24 hr (Pristiq) Allergies Allergy/AdvReac Type Severity Reaction Status Date / Time cinnamon (CINNAMON) Allergy Severe S-DIFF. Verified 02/03/25 08:49 BREATHING adhesive tape Allergy Mild Rash Verified 02/03/25 08:49 orange juice Allergy Mild Rash Verified 03/09/25 18:28 acetaminophen (From Percocet) Allergy Confusion Verified 03/09/25 18:28 oxycodone (From Percocet) Allergy Confusion Verified 03/09/25 18:28 PFSH PFS Disclaimer: The information contained in this section may have been updated after the patient was seen, as this information can be updated by other users. Medical History LV dysfunction Major depressive disorder Typical angina Syncope Dizziness Palpitations Chest pain Atrial fibrillation Obstructive sleep apnea Hyperlipidemia Hypertensive heart disease without heart failure Sinus bradycardia Coronary arteriosclerosis Surgical History H/O colonoscopy H/O heart artery stent H/O right heart catheterization Family History Other Coronary artery disease Diabetes Heart attack Hyperlipidemia Hypertension Social History Smoking Status: Former smoker second hand exposure: No alcohol intake: former counseling provided: none substance use type: denies use current occupational status: retired Travel in the last 8 weeks?: None household members: spouse housing: house number of children: 2 current occupational exposures/hazards: No caffeine: No Have you lived/traveled outside [place] in past 30 days?: No Contact w/someone who lives/traveled outside US past 30 days?: No Exposure to someone with infectious disease in past 14 days?: No Do you have a fever (greater than 100.4 F or 38 C)?: No Have you tested positive for COVID-19?: No Exposed to someone with COVID-19 in past 14 days?: No Do you have a sore throat?: No Do you have a cough?: No Do you have any weakness?: No Do you have any diarrhea?: No Are you experiencing any unusual bleeding?: No Do you have any muscle aches/pain?: No Do you have any abdominal pain?: No Are you experiencing loss of taste or smell?: No Other Medical History Have you received the Flu Vaccine for this season: Yes Have you received the Pneumonia Vaccine: No ROS Obtained: Yes Systems reviewed as appropriate & no additional complaints except as documented Physical Exam General General appearance: alert and other (Appearing uncomfortable in bed) Head Head exam: atraumatic and normocephalic Eye Eye exam: Present PERRL and EOMI ENT ENT exam: Present mucous membranes moist Neck Neck exam: Present normal inspection Chest Chest inspection: Present normal inspection and symmetric chest wall rise Respiratory Respiratory exam: Present normal lung sounds bilaterally; Absent respiratory distress Cardiovascular Cardiovascular exam: Present regular rate and normal rhythm Abdominal Exam Abdominal exam: Present soft; Absent tenderness Extremities Exam Extremities exam: Present normal inspection Neurological Exam Neurological exam: Present alert Psychiatric Psychiatric exam: Present normal affect Skin Skin exam: Present warm and dry HEART Score HEART Score HEART Score assessment performed?: Yes History (anamnesis): Highly suspicious ECG: Non-specific disturbance Age: >65 years Risk factors: Atherosclerosis history Troponin: </= normal limit HEART Score: 7 Critical Care Critical Care Time Critical Care Time: No Medical Decision Making Matias Inquiry Pt receiving controlled substance: No Vital Signs Vital Signs: 03/09/25 18:29 03/09/25 18:31 03/09/25 19:00 Temperature 98.3 F Temperature Source Axillary Pulse Rate 79 82 Pulse Rate [Apical] 86 Respiratory Rate 22 38 H 17 Blood Pressure 138/86 134/75 Blood Pressure [Right Arm] 136/80 Blood Pressure Mean [Right Arm] 98 Blood Pressure Source [Right Arm] Automatic Cuff Blood Pressure Position [Right Arm] Supine 02 Sat by Pulse Oximetry 97 98 91 L Oxygen Delivery Method Room Air Room Air 03/09/25 19:30 03/09/25 19:38 03/09/25 19:41 Temperature Temperature Source Pulse Rate 63 90 Pulse Rate [Apical] Respiratory Rate 13 20 23 Blood Pressure 127/84 129/86 122/88 Blood Pressure [Right Arm] Blood Pressure Mean [Right Arm] Blood Pressure Source [Right Arm] Blood Pressure Position [Right Arm] 02 Sat by Pulse Oximetry 88 L 93 L 94 L Oxygen Delivery Method 03/09/25 20:00 03/09/25 20:30 03/09/25 21:00 Temperature Temperature Source Pulse Rate 81 75 78 Pulse Rate [Apical] Respiratory Rate 15 16 13 Blood Pressure 121/74 119/72 140/95 H Blood Pressure [Right Arm] Blood Pressure Mean [Right Arm] Blood Pressure Source [Right Arm] Blood Pressure Position [Right Arm] 02 Sat by Pulse Oximetry 93 L 94 L 96 Oxygen Delivery Method 03/09/25 21:06 03/09/25 21:30 03/09/25 22:00 Temperature Temperature Source Pulse Rate 75 65 64 Pulse Rate [Apical] Respiratory Rate 12 14 12 Blood Pressure 144/89 H 125/78 129/68 Blood Pressure [Right Arm] Blood Pressure Mean [Right Arm] Blood Pressure Source [Right Arm] Blood Pressure Position [Right Arm] 02 Sat by Pulse Oximetry 95 95 95 Oxygen Delivery Method 03/09/25 22:44 Temperature Temperature Source Pulse Rate 70 Pulse Rate [Apical] Respiratory Rate 16 Blood Pressure 129/85 Blood Pressure [Right Arm] Blood Pressure Mean [Right Arm] Blood Pressure Source [Right Arm] Blood Pressure Position [Right Arm] 02 Sat by Pulse Oximetry 97 Oxygen Delivery Method Lab Data Labs: Lab Results 03/09/25 18:00: WBC 6.2, RBC 5.68, Hgb 18.3 H, Hct 52.6 H, MCV 92.6, MCH 32.0 H, MCHC 34.6, RDW 12.8, Plt Count 200, MPV 9.7, Neut % (Auto) 57.9, Lymph % (Auto) 31.6, [place] % (Auto) 7.4, Eos % (Auto) 1.9, Baso % (Auto) 1.0, Neut # (Auto) 3.6, Lymph # (Auto) 2.0, [place] # (Auto) 0.5, Eos # (Auto) 0.1, Baso # (Auto) 0.1, D- Dimer 0.38, Sodium 138, Potassium 4.2, Chloride 110 H, Carbon Dioxide 23, Anion Gap 9.2, BUN 15, Creatinine 1.00, Estimated Creat Clear 104, Estimated GFR 73, Est GFR ( Amer) 88, Glucose 171 H, Calcium 9.0, Total Bilirubin 1.4 H, AST 28, ALT 26, Alkaline Phosphatase 37 L, Troponin I < 0.01, Total Protein 7.0, Albumin 4.2, Globulin 2.8, Albumin/Globulin Ratio 1.5, HCV Ab ROULA w/Rflx PCR Qn Negative, HIV Ag/Ab Combo Qual Negative 03/09/25 18:43: SARS-CoV-2 (PCR) Not detected, Influenza A Untype (PCR) Not detected, Influenza Type B (PCR) Not detected 03/09/25 21:08: Troponin I < 0.01 03/09/25 18:00 03/09/25 18:00 Response Orders (Tests/Meds): ED MEDICATIONS Generic Name Dose Route Start Last Admin Trade Name Freq PRN Reason Stop Dose Admin Acetaminophen 650 mg 03/09/25 22:36 Acetaminophen 325mg Tab PO 04/08/25 22:35 Q4HP PRN Fever or Mild Pain (1-3) Hydrocodone Bitart/Acetaminophen 1 tab 03/09/25 22:36 Hydrocodone/Apap 5/325 Mg Tablet PO 04/08/25 22:35 Q4HP PRN Mild to Moderate Pain (1-6) Nitroglycerin 0.4 mg 03/09/25 19:29 03/09/25 19:37 Nitroglycerin 0.4mg Sl Tablet SL 04/08/25 19:28 0.4 mg Q5MINP PRN Administration Chest Pain Ondansetron HCl 4 mg 03/09/25 22:36 Ondansetron 4mg/2ml Vial IV 04/08/25 22:35 Q8HP PRN Nausea Discontinued Medications Generic Name Dose Route Start Last Admin Trade Name Freq PRN Reason Stop Dose Admin Aspirin 324 mg 03/09/25 19:29 03/09/25 19:38 Aspirin 81mg Chewable Tablet PO 03/09/25 19:30 324 mg ONCE ONE Administration Morphine Sulfate 4 mg 03/09/25 19:29 03/09/25 19:36 Morphine 4mg/Ml Syringe IV 03/09/25 19:30 4 mg ONCE ONE Administration ORDERS Category Date Time Status XR chest portable Stat Exams 03/09/25 19:01 Completed Complete Blood Count Auto Diff Stat Lab 03/09/25 18:00 Completed Comprehensive Metabolic Panel Stat Lab 03/09/25 18:00 Completed D-Dimer Stat Lab 03/09/25 18:00 Completed HIV Combo Routine Lab 03/09/25 18:00 Completed Hepatitis C Ab Qual. W/ RFX Routine Lab 03/09/25 18:00 Completed Rapid PCR Covid and Flu A/B Stat Lab 03/09/25 18:43 Completed Troponin I Q3H Lab 03/09/25 21:08 Completed Troponin I Q3H Lab 03/10/25 01:15 Ordered Troponin I Q3H Lab 03/10/25 01:15 Ordered Troponin I Stat Lab 03/09/25 18:00 Completed ECG Data Tracing #1: ECG Narrative: Independently interpreted by me rate is 81, rhythm is irregular, atrial fibrillation, no ST elevation in anatomical contiguous leads, QTc 385. Tracing #2: ECG Narrative: Independently interpreted by me rate of 77, rhythm is irregular, atrial fibrillation, axis is normal, no ST elevation in anatomical contiguous leads, QTc 381. MDM Narrative Medical Decision Narrative: In summary patient is a 74-year-old male with past medical history described above who presents to the emergency department for evaluation of chest pain. Patient is hemodynamically stable nontoxic-appearing arrival, afebrile. Patient is high risk given his cardiovascular history for ACS. Workup will be conducted with hematologic labs, chest x-ray, D-dimer, serial troponins. Initial workup reviewed by me initial troponin undetectably low, D-dimer excludes pulmonary embolism and low risk aortic dissection. No significant leukocytosis or transfusable anemia. EKG atrial fibrillation which is known to the patient, nonischemic. Given patient has stuttering chest pain and his duration of symptoms cannot successfully exclude ACS for multiple troponins over multiple hours as well as the fact that he would benefit from cardiology evaluation the case discussed with hospital medicine regarding management they will admit the patient to their service for continued evaluation at this time.
[2025-03-09 18:46] LABS: Coronavirus 19, PCR Not Detected (NotDetected); Influenza A, PCR Not Detected (NotDetected); Influenza B, PCR Not Detected (NotDetected)
--- NOTE | 2025-03-09 19:01 | XR_ITS ---
PROCEDURE INFORMATION: Exam: XR Chest Exam date and time: 03/09/2025 7:41 PM Age: 74 years old Clinical indication: Pain; Chest pressure; Additional info: Chest pain TECHNIQUE: Imaging protocol: Radiologic exam of the chest. Views: 1 view. COMPARISON: No relevant prior studies available. FINDINGS: Lungs: Left basilar opacities partially silhouette the diaphragm are favored to represent combination of atelectasis/pleural effusion/consolidation. Pleural spaces: See Lungs finding. Heart/Mediastinum: Unremarkable. No cardiomegaly. Bones/joints: Unremarkable. IMPRESSION: Left basilar opacities partially silhouette the diaphragm are favored to represent combination of atelectasis/pleural effusion/consolidation.
[2025-03-09 19:11] LABS: Basophils # 0.1 K/mm3 (0-0.2); Eosinophils # 0.1 Kmm3 (0.0-0.4); Eosinophils % 1.9 % (0.1-12.0); Hematocrit 52.6 % (42.0-52.0); Immature Granulocytes # 0.01 10^3uL; Immature Granulocytes % 0.2 %; Lymphocytes % 31.6 % (10-50); Mean Corpuscular HGB Conc 34.6 g/dL (31.8-35.4); Mean Corpuscular Volume 92.6 fl (80-94); Mean Platelet Volume 9.7 fl (7.4-10.4); Monocytes # 0.5 K/mm3 (0.1-1.0); Monocytes % 7.4 % (1.7-9.3); Neutrophils # 3.6 K/mm3 (1.8-7.8); Neutrophils % 57.9 % (37.0-80.0); Nucleated Red Blood Cells # 0 10^3/uL; Nucleated Red Blood Cells % 0 %; Platelet Count 200 K/mm3 (142-424); Red Blood Count 5.68 M/mm3 (4.60-6.20); Red Cell Distribution Width 12.8 % (11.5-17.5); Red Cell Distribution Width-SD 43.9 fL; White Blood Count 6.2 K/mm3 (4.8-10.8)
--- NOTE | 2025-03-09 19:11 | PC.NURSE ---
Addendum entered by Radha Castillo RN 03/09/25 19:13: Updated on POC @ this time Original Note: Checked on pt. No needs voiced. Reports some improvement w/ chest pain. Family @ bedside. Call yaw w/in reach.
[2025-03-09 19:14] LABS: Alanine Aminotransferase 26 U/L (12-78); Albumin Level 4.2 g/dl (3.5-5.0); Albumin/Globulin Ratio 1.5 (1.1-1.8); Alkaline Phosphatase 37 U/L (38-126); Anion Gap 9.2 mEq/L (5-15); Aspartate Amino Transferase 28 U/L (17-59); Bilirubin,Total 1.4 mg/dl (0.2-1.3); Blood Urea Nitrogen 15 mg/dl (9-20); Carbon Dioxide 23 mmol/L (22.0-30.0); Chloride 110 mmol/L (98-107); Creatinine Clearance Estimated 104 mL/min (50-200); Estimated Glomerular Filt Rate 73 ml/min (>60); GFR (African American) 88 ML/MIN (>60); Globulin 2.8 g/dL (1.3-3.2); Glucose 171 mg/dl (74-100); Potassium 4.2 mmoL/L (3.5-5.1); Sodium 138 mmol/L (136-145)
[2025-03-09 19:15] LABS: Hemoglobin 18.3 g/dL (14.1-18.0)
[2025-03-09 19:28] LABS: Troponin I < 0.01 ng/ml (0.00-0.034)
--- NOTE | 2025-03-09 19:28 | PC.NURSE ---
rounded on pt pt. pt voices no needs. call light within reach
[2025-03-09] MEDS: MORPHINE 4MG/ML SYRINGE 4 MG IV (19:36)
[2025-03-09] MEDS: NITROGLYCERIN 0.4MG SL TABLET 0.4 MG SL (19:37)
[2025-03-09] MEDS: ASPIRIN 81MG CHEWABLE TABLET 324 MG PO (19:38)
[2025-03-09 19:50] LABS: HIV Combo NEGATIVE (Negative)
[2025-03-09 19:55] LABS: D-Dimer 0.38 ug/mL (0.0-0.5)
[2025-03-09 19:58] LABS: Hepatitis C Ab Qual. W/ RFX NEGATIVE (Negative)
--- NOTE | 2025-03-09 20:25 | PC.NURSE ---
pt denied chest pain 5 mins after nitro and continues to deny CP at this time
--- NOTE | 2025-03-09 21:33 | PC.NURSE ---
pt given water at this time
[2025-03-09 22:11] LABS: Troponin I < 0.01 ng/ml (0.00-0.034)
--- NOTE | 2025-03-09 22:26 | CT_ITS ---
PROCEDURE INFORMATION: Exam: CT Head Without Contrast Exam date and time: 03/09/2025 10:35 PM Age: 74 years old Clinical indication: Altered mental status/memory loss TECHNIQUE: Imaging protocol: Computed tomography of the head without contrast. Radiation optimization: All CT scans at this facility use at least one of these dose optimization techniques: automated exposure control; mA and/or kV adjustment per patient size (includes targeted exams where dose is matched to clinical indication); or iterative reconstruction. COMPARISON: CT HEAD/BRAIN W CON 02/28/2021 1:38 PM FINDINGS: Brain: There is age related atrophy. No hemorrhage. There is mild periventricular white matter hypodensity consistent with chronic small vessel disease. No mass effect. Cerebral ventricles: No ventriculomegaly. Paranasal sinuses: Visualized sinuses are unremarkable. No fluid levels. Mastoid air cells: Visualized mastoid air cells are well aerated. Orbital cavities: The orbital contents are symmetric and normal. Bones: Unremarkable. No acute fracture. Soft tissues: Unremarkable. IMPRESSION: No acute intracranial abnormality.
--- NOTE | 2025-03-09 22:32 | PC.NURSE ---
pt to CT at this time. Pt told Romulo Gooden MD that he had mental changes on EMS in route to ED. Head CT ordered per Dr Gooden.
--- NOTE | 2025-03-09 22:43 | EXP.HP ---
History of Present Illness *Admission Date: 03/09/25 *Reason for visit:: Chest pain *History of present illness: 74-year-old history of coronary artery disease status post multiple PCI, multiple cardiac risk factors, presents emergency department for acute onset chest pain that occurred at rest while sitting on his swings. He describes about 5 hours ago that he had acute onset severe central heavy chest pressure radiating bilaterally. No other associated symptoms. He took a nitroglycerin and waited 10 minutes and then took another nitroglycerin. When his symptoms did not resolve he called the ambulance he continued to have symptoms until arrival to the ED where he was given an additional nitroglycerin and aspirin and morphine. Currently he is chest pain-free. While in row patient had 15 minutes of hypoactive encephalopathy and was borderline unresponsive. He was requiring multiple rounds of deep sternal rub in order to maintain consciousness. Patient has minimal recollection of this and it was hard for attention by his at bedside. EKG on arrival demonstrated rate controlled A-fib without ST deviations. Chest x-ray demonstrates mild left basilar opacities. Troponins normal x 2. D-dimer negative. Discussed admission for acute chest pain evaluation. Patient was agreeable. During the process evaluation I independently reviewed and interpreted EKG, chest x-ray and all laboratory findings. I independently obtained history and reviewed prior documentation. Further collaboration with the ER physician occurred. [facility] Disclaimer: The information contained in this section may have been updated after the patient was seen, as this information can be updated by other users. Medical History LV dysfunction Major depressive disorder Typical angina Syncope Dizziness Palpitations Chest pain Atrial fibrillation Obstructive sleep apnea Hyperlipidemia Hypertensive heart disease without heart failure Sinus bradycardia Coronary arteriosclerosis Surgical History H/O colonoscopy H/O heart artery stent H/O right heart catheterization Family History Other Coronary artery disease Diabetes Heart attack Hyperlipidemia Hypertension Social History Smoking Status: Former smoker second hand exposure: No alcohol intake: former counseling provided: none substance use type: denies use current occupational status: retired Travel in the last 8 weeks?: None household members: spouse housing: house number of children: 2 current occupational exposures/hazards: No caffeine: No Have you lived/traveled outside [place] in past 30 days?: No Contact w/someone who lives/traveled outside [place] past 30 days?: No Exposure to someone with infectious disease in past 14 days?: No Do you have a fever (greater than 100.4 F or 38 C)?: No Have you tested positive for COVID-19?: No Exposed to someone with COVID-19 in past 14 days?: No Do you have a sore throat?: No Do you have a cough?: No Do you have any weakness?: No Do you have any diarrhea?: No Are you experiencing any unusual bleeding?: No Do you have any muscle aches/pain?: No Do you have any abdominal pain?: No Are you experiencing loss of taste or smell?: No Other Medical History Have you received the Flu Vaccine for this season: Yes Have you received the Pneumonia Vaccine: No Review of Systems Review of Systems Review of systems:: pertinent systems reviewed and negative unless documented below Constitutional Constitutional: Denies chills and Denies excessive sweating ENT Ears, Nose, Mouth, and Throat: Denies dizziness and Denies dry mouth *Cardiovascular Cardiovascular: Reports chest pain, Reports chest pain at rest, Denies dyspnea and Denies dyspnea on exertion *Respiratory Respiratory: Denies dyspnea and Denies dyspnea on exertion *Gastrointestinal Gastrointestinal: Denies cramping and Denies diarrhea *Musculoskeletal Musculoskeletal: Denies abnormal gait and Denies joint swelling *Neurologic Neurologic: Denies abnormal gait and Denies dizziness Endocrine Endocrine: Denies excessive sweating Meds Home Medications and Allergies Home Medications ?Medication ?Instructions ?Recorded ?Confirmed ?Type pantoprazole 40 mg tablet,delayed 40 mg PO DAILY #90 tabs 05/05/24 03/09/25 Rx release sacubitril 24 mg-valsartan 26 mg 1 tab PO BID #180 tabs 05/05/24 03/09/25 Rx tablet (Entresto) clopidogrel 75 mg tablet 75 mg PO DAILY 07/06/24 03/09/25 History nitroglycerin 0.4 mg sublingual See Rx Instructions .Route 07/21/24 03/09/25 Rx tablet .COMPLEX #25 tabs empagliflozin 25 mg tablet See Rx Instructions .Route 07/28/24 03/09/25 Rx (Jardiance) .COMPLEX #90 tabs atorvastatin 10 mg tablet 10 mg PO DAILY #90 tabs 10/27/24 03/09/25 Rx carvedilol 25 mg tablet 25 mg PO BID 90 days #180 tabs 11/10/24 03/09/25 Rx isosorbide mononitrate 30 mg 30 mg PO DAILY #90 tabs 12/29/24 03/09/25 Rx tablet,extended release 24 hr rivaroxaban 20 mg tablet (Xarelto) 20 mg PO DAILY #90 tabs 12/29/24 03/09/25 Rx buspirone 10 mg tablet 10 mg PO BID #180 tabs 01/06/25 03/09/25 Rx diazepam 5 mg tablet (Valium) 5 mg PO BID PRN anxiety #60 tabs 01/06/25 03/09/25 Rx trazodone 50 mg tablet See Rx Instructions PO HS PRN 01/13/25 03/09/25 Rx sleep #60 tabs lancets (Accu-Chek Fastclix Lancet #100 ea 01/19/25 03/09/25 Rx Drum) blood sugar diagnostic (Accu-Chek #100 ea 02/03/25 03/09/25 Rx SmartView Test Strips) desvenlafaxine succinate 50 mg 50 mg PO DAILY #30 tabs 02/04/25 03/09/25 Rx tablet,extended release 24 hr (Pristiq) New Prescriptions to Start Prescriptions: Allergies Allergy/AdvReac Type Severity Reaction Status Date / Time cinnamon (CINNAMON) Allergy Severe S-DIFF. Verified 02/03/25 08:49 BREATHING adhesive tape Allergy Mild Rash Verified 02/03/25 08:49 orange juice Allergy Mild Rash Verified 03/09/25 18:28 acetaminophen (From Percocet) Allergy Confusion Verified 03/09/25 18:28 oxycodone (From Percocet) Allergy Confusion Verified 03/09/25 18:28 Exam Data for Last 24 hours Vital signs and Labs for Last 24 Hours: Temp Pulse Resp BP Pulse Ox O2 Del Method 98.3 F 81 15 121/74 93 L Room Air 03/09/25 18:29 03/09/25 20:00 03/09/25 20:00 03/09/25 20:00 03/09/25 20:00 03/09/25 19:00 Laboratory Results - last 24 hr 03/09/25 18:00: WBC 6.2, RBC 5.68, Hgb 18.3 H, Hct 52.6 H, MCV 92.6, MCH 32.0 H, MCHC 34.6, RDW 12.8, Plt Count 200, MPV 9.7, Neut % (Auto) 57.9, Lymph % (Auto) 31.6, [place] % (Auto) 7.4, Eos % (Auto) 1.9, Baso % (Auto) 1.0, Neut # (Auto) 3.6, Lymph # (Auto) 2.0, [place] # (Auto) 0.5, Eos # (Auto) 0.1, Baso # (Auto) 0.1, D-Dimer 0.38, Sodium 138, Potassium 4.2, Chloride 110 H, Carbon Dioxide 23, Anion Gap 9.2, BUN 15, Creatinine 1.00, Estimated Creat Clear 104, Estimated GFR 73, Est GFR ( Amer) 88, Glucose 171 H, Calcium 9.0, Total Bilirubin 1.4 H, AST 28, ALT 26, Alkaline Phosphatase 37 L, Troponin I < 0.01, Total Protein 7.0, Albumin 4.2, Globulin 2.8, Albumin/Globulin Ratio 1.5, HCV Ab ROULA w/Rflx PCR Qn Negative, HIV Ag/Ab Combo Qual Negative 03/09/25 18:43: SARS-CoV-2 (PCR) Not detected, Influenza A Untype (PCR) Not detected, Influenza Type B (PCR) Not detected 03/09/25 21:08: Troponin I < 0.01 I & O for Last 24 hours: Intake & Output 03/06/25 03/07/25 03/08/25 03/09/25 23:59 23:59 23:59 23:59 Weight 113.398 kg Constitutional Constitutional: no acute distress and obese *Routine HEENT Exam Head: Present normocephalic Eye: Present EOMI ENT: Present mucous membranes moist *Routine Neck Exam Neck: Present supple; Absent JVD *Routine Respiratory Exam Respiratory: Present CTA bilaterally; Absent accessory muscle use *Routine Cardiovascular Exam Cardiovascular: Present Normal S1, Normal S2 and irregular rhythm; Absent RRR *Routine Abdominal Exam Abdominal: Present soft; Absent tenderness *Routine Rectal Exam Rectal:: deferred *Routine Genitalia Exam Genitalia:: deferred *Routine Extremities Exam Extremities: Absent cyanosis or edema *Routine Skin Exam Skin: Present intact; Absent cyanosis *Routine Neurological Exam Neurological: Present alert and oriented X3 Assessment and Plan *Assessment and plan (1) CAD (coronary artery disease): Status: Acute Category: Medical Code(s): I25.10 - Atherosclerotic heart disease of [place] coronary artery without angina pectoris (2) Chest pain: Status: Acute Qualifiers: Chest pain type: unspecified Qualified Code(s): R07.9 - Chest pain, unspecified Category: Medical Code(s): R07.9 - Chest pain, unspecified (3) Atrial fibrillation: Status: Acute Qualifiers: Atrial fibrillation type: unspecified Qualified Code(s): I48.91 - Unspecified atrial fibrillation Category: Medical Code(s): I48.91 - Unspecified atrial fibrillation (4) Hyperlipidemia: Status: Chronic Qualifiers: Hyperlipidemia type: mixed hyperlipidemia Qualified Code(s): E78.2 - Mixed hyperlipidemia Category: Medical Code(s): E78.5 - Hyperlipidemia, unspecified (5) HTN (hypertension): Status: Acute Category: Medical Code(s): I10 - Essential (primary) hypertension Plan 74-year-old multiple cardiovascular risk factors including CAD status post PCI, chronic atrial fibrillation (failed DCCV) presenting with acute chest pain. Troponins negative. Acute chest pain CAD s/ PCI - Echo - Telemetry - Resume antianginals current medical regimen following reconciliation - Pharmacologic nuclear stress test ordered - Continue aspirin Plavix - Continue atorvastatin, LDL goal less than 55 - Continue SGLT2 Chronic atrial fibrillation, rate controlled - Rivaroxaban Hypertension - Continue Entresto - continue coreg Heart failure recovered ejection fraction - Continue GDMT - Follow-up echo Encephalopathy, unknown etiology, resolved - CT ordered due to acute mental status change reported in EMS
--- NOTE | 2025-03-09 23:18 | PC.NURSE ---
Patient arrived to floor via wheelchair from ED at 23:03.
[2025-03-10] VITALS (8 sets, daily range): BP systolic 106–148; BP diastolic 55–78; PULSE 60–100; RESP 16–18; TEMP 36.4–36.8; O2SAT 96–97; BMI 31.4
--- NOTE | 2025-03-10 | CA_ITS ---
APPROVED REPORT Exam: Pharmacologic Technologist: Gabriela Dejesus Ht: 5 ft 10 in Wt: 218 lbs BSA: 2.17 m2 Medical History Medications: pantoprazole, entresto, plavix, nitroglycerin, jardiance, atorvastatin, carvedilol, isosorbide mononitrate, rivaroxaban, buspirone, diazepam, trazodone, pristiq. Stress Test Details Test: Lexiscan Reason for pharmacologic stress test: physical limitation. HR Resting HR: 79 bpm Max Heart Rate (APMHR): 146 bpm Max HR Achieved: 103 bpm Target HR (85% APMHR): 124 bpm % of APMHR: 71 Recovery HR: 93 bpm BP Resting BP: 137.0/90.0 mmHg Max BP: 137.0/90.0 mmHg Recovery BP: 125.0/82.0 mmHg ECG Resting ECG: PAF 79 Stress ECG Conclusion Symptoms: SOA, flushing, CP, dizzy, MCDERMOTT. Arrhythmias/Ectopy: Lexiscan.+A-fib. Electronically signed by : Krissy Sandhu MD 03/10/2025 23:57:15
[2025-03-10 02:16] LABS: Troponin I < 0.01 ng/ml (0.00-0.034)
--- NOTE | 2025-03-10 03:26 | PC.NURSE ---
Pt arrived to unit earlier in the shift. Pt is alert and oriented and denies chest pain or shortness of air at this time. Pt is AOx4, pleasant. NPO per Dr. sheikh. Respirations even and unlabored. Bed is low, locked, and call light is in reach.
[2025-03-10 05:42] LABS: POC Glucose,Bedside 120 (70-110)
--- NOTE | 2025-03-10 07:45 | HMH.PHAINT1 ---
Pharmacy Intervention Comments: HOME MEDICATION LIST VERIFIED USING LIST FROM OUTPATIENT PHARMACY AND PT INTERVIEW
[2025-03-10] MEDS: DEFINITY US ECHO CONTRAST 2ML INJ 2 MG IV (08:19)
[2025-03-10 08:29] LABS: Basophils # 0.1 K/mm3 (0-0.2); Basophils % 1.1 % (0.1-2.0); Eosinophils # 0.2 Kmm3 (0.0-0.4); Eosinophils % 2.3 % (0.1-12.0); Hematocrit 52.2 % (42.0-52.0); Hemoglobin 17.9 g/dL (14.1-18.0); Immature Granulocytes # 0.03 10^3uL; Immature Granulocytes % 0.5 %; Lymphocytes # 1.7 K/mm3 (0.7-4.5); Lymphocytes % 25.9 % (10-50); Mean Corpuscular HGB Conc 34.3 g/dL (31.8-35.4); Mean Corpuscular Hemoglobin 32.1 pg (27.0-31.2); Mean Corpuscular Volume 93.7 fl (80-94); Mean Platelet Volume 9.4 fl (7.4-10.4); Monocytes # 0.7 K/mm3 (0.1-1.0); Neutrophils # 3.9 K/mm3 (1.8-7.8); Neutrophils % 60.2 % (37.0-80.0); Nucleated Red Blood Cells # 0 10^3/uL; Nucleated Red Blood Cells % 0 %; Platelet Count 158 K/mm3 (142-424); Red Blood Count 5.57 M/mm3 (4.60-6.20); Red Cell Distribution Width 12.8 % (11.5-17.5); Red Cell Distribution Width-SD 43.8 fL; White Blood Count 6.5 K/mm3 (4.8-10.8)
[2025-03-10 08:50] LABS: Alanine Aminotransferase 21 U/L (12-78); Albumin Level 3.9 g/dl (3.5-5.0); Albumin/Globulin Ratio 1.4 (1.1-1.8); Alkaline Phosphatase 42 U/L (38-126); Anion Gap 4.6 mEq/L (5-15); Aspartate Amino Transferase 23 U/L (17-59); Bilirubin,Total 1.9 mg/dl (0.2-1.3); Blood Urea Nitrogen 16 mg/dl (9-20); Calcium 8.7 mg/dl (8.4-10.2); Carbon Dioxide 28 mmol/L (22.0-30.0); Chloride 110 mmol/L (98-107); Chol/HDL Ratio 2.8 (1-3.5); Cholesterol 100 mg/dl (140-200); Creatinine Clearance Estimated 91 mL/min (50-200); Estimated Glomerular Filt Rate 73 ml/min (>60); GFR (African American) 88 ML/MIN (>60); Globulin 2.7 g/dL (1.3-3.2); Glucose 118 mg/dl (74-100); HDL Cholesterol 36 mg/dl (40-60); Magnesium 2.2 mg/dl (1.6-2.3); Phosphorous 3.4 mg/dl (2.5-4.5); Potassium 4.6 mmoL/L (3.5-5.1); Sodium 138 mmol/L (136-145); Total Protein,Serum 6.6 g/dl (6.3-8.2); Triglycerides 93 mg/dl (30-150); VLDL Cholesterol 19 mg/dL (0-40)
[2025-03-10 09:01] LABS: Direct LDL Cholesterol 49.51 mg/dL (100-129)
--- NOTE | 2025-03-10 09:57 | NM_ITS ---
APPROVED REPORT Exam: Nuclear Stress Test Indication: Chest pain, SOB, CAD, Hx of OR, HTN, DM, Family history Patient Location: Inpatient Stress Tech: Gabriela Rudd OR Tech:Jada Ritchie, ARRT, RT (R)(N) Ht: 5 ft 10 in Wt: 218 lbs HR: 79 bpm BP: 137/90 mmHg BSA: 2.17 m2 TID: 1.25 BMI: 31.2 History: Chest pain, SOB, CAD, Hx of OR, HTN, DM, Family history Procedure: Patient received 0.4 mg of intravenous Lexiscan, resting heart rate 79 bpm, resting blood pressure 137/90 mmHg, with Lexiscan maximum heart rate achieved was 113 bpm which is % of the maximum predicted heart rate and blood pressure was 136/59 mmHg. With Lexiscan, patient denied any complaint of chest pain. Cardiac Stress and Resting SPECT Images: Cardiac Stress and Resting SPECT images were obtained using technetium 99m Myoview 32.0 mCi stress and 10.67 mCi at rest. Resting and stress imaging in supine and prone positions demonstrate a medium sized, moderate, predominantly fixed perfusion defect in the basal to mid inferior LV zuleta. There is a small region of reversibility towards the mid inferior LV wall. There is also increase in transient ischemic dilatation ratio (TID 1.25), suggestive of possible multivessel disease or balanced ischemia. Gated imaging demonstrates normal global LV systolic function. LVEF is calculated at 56%. Conclusion: a medium sized, moderate, predominantly fixed perfusion defect in the basal to mid inferior LV zuleta. There is a small region of reversibility towards the mid inferior LV wall. There is also increase in transient ischemic dilatation ratio (TID 1.25), suggestive of possible multivessel disease or balanced ischemia. Gated imaging demonstrates normal global LV systolic function. LVEF is calculated at 56%. Electronically signed by : Krissy Sandhu MD 03/10/2025 23:48:51
[2025-03-10] MEDS: ISOSORBIDE MONO 30MG TAB.ER.24H 30 MG PO (10:05)
[2025-03-10] MEDS: SACUBITRIL/VALSARTAN 24-26MG TABLET 1 EACH PO ×2 (10:05→21:16)
[2025-03-10] MEDS: BUSPIRONE HCL 10 MG TABLET PO ×2 (10:05→21:16)
[2025-03-10] MEDS: CARVEDILOL 25MG TABLET 25 MG PO ×2 (10:05→21:16)
[2025-03-10] MEDS: CLOPIDOGREL 75MG TAB 75 MG PO (10:05)
[2025-03-10] MEDS: EMPAGLIFLOZIN 25MG TABLET 25 MG PO (10:05)
--- NOTE | 2025-03-10 12:23 | CA_ITS ---
FINAL REPORT TECHNIQUE: Color Doppler, duplex Doppler and driscoll scale sonography of the bilateral neck arterial vasculature was performed. Velocities were measured in the carotid arteries. Stenosis evaluation based on the validated velocity criteria. CLINICAL HISTORY: Dizziness, encephalopathy, Afib, stents, CAD, LIBIA, HTN, DM, HLD, ex smoker FINDINGS: The peak systolic velocity of the right common carotid artery is cm/s. The peak systolic velocity of the right internal carotid artery is cm/s and end diastolic velocity cm/s. A small amount of plaque is present. The right external carotid artery is patent. The right vertebral artery is patent with antegrade flow. The peak systolic velocity of the left common carotid artery is cm/s. The peak systolic velocity of the left internal carotid artery is cm/s and end diastolic velocity cm/s. A small amount of plaque is present. The left external carotid artery is patent.The left vertebral artery is patent with antegrade flow. Moderate plaque burden is seen bilaterally. IMPRESSION: Less than 50% bilateral carotid stenoses. Bilateral patent vertebral arteries with antegrade flow. If indicated, CTA or MRA could further evaluate. Reviewed, Interpreted and Dictated by Anselmo Broussard MD Transcribed by Ami Treadwell Authenticated and [facility]
--- NOTE | 2025-03-10 13:41 | P.CONCA_ITS ---
History of Present Illness History of Present Illness Consult date: 03/10/25 Requesting physician: Watson Gooden Consult reason: chest pain Chief complaint: chest pain History of present illness: 74 yo WM established pt of our office with known MV-CAD s/p GARIMA 2008 and 2021. Last cath was 10/2023 showing distal LAD of 70-80% and subtotally occluded RCA which were both left to medical management. Pt states he has been doig well without chest pain until yesterday while at rest developed severe substernal chest tightness. He took Ntg SL which helped some but symptoms returned so he took another Ntg SL and called EMS. He had several episodes of reduced consciousness en route but responded to sternal rub. On arrival had normal serial troponins and symptoms were improving but he was admitted for further workup and observation. Hospitalist ordered chemical stress test and 2D ECHO which are pending. Of note, patient reports having some lingering dizziness and weakness this morning. He reports occasional falls at home. Head CT here is normal and no focal neurological deficits noted. [facility] Disclaimer: The information contained in this section may have been updated after the patient was seen, as this information can be updated by other users. Medical History LV dysfunction Major depressive disorder Typical angina Syncope Dizziness Palpitations Chest pain Atrial fibrillation Obstructive sleep apnea Hyperlipidemia Hypertensive heart disease without heart failure Sinus bradycardia Coronary arteriosclerosis Surgical History H/O colonoscopy H/O heart artery stent H/O right heart catheterization Family History Other Coronary artery disease Diabetes Heart attack Hyperlipidemia Hypertension Social History Smoking Status: Former smoker second hand exposure: No alcohol intake: former counseling provided: none substance use type: denies use current occupational status: retired Travel in the last 8 weeks?: None household members: spouse housing: house number of children: 2 current occupational exposures/hazards: No caffeine: No Have you lived/traveled outside [place] in past 30 days?: No Contact w/someone who lives/traveled outside US past 30 days?: No Exposure to someone with infectious disease in past 14 days?: No Do you have a fever (greater than 100.4 F or 38 C)?: No Have you tested positive for COVID-19?: No Exposed to someone with COVID-19 in past 14 days?: No Do you have a sore throat?: No Do you have a cough?: No Do you have any weakness?: No Do you have any diarrhea?: No Are you experiencing any unusual bleeding?: No Do you have any muscle aches/pain?: No Do you have any abdominal pain?: No Are you experiencing loss of taste or smell?: No Review of Systems Constitutional Constitutional: Denies fatigue, Reports frequent falls, Reports headache(s) and Reports weakness Eyes Eyes: Denies loss of vision ENT Ears, Nose, Mouth, and Throat: Reports dizziness and Reports headache(s) *Cardiovascular Cardiovascular: Reports chest pain and Reports dyspnea *Respiratory Respiratory: Denies cough and Reports dyspnea *Gastrointestinal Gastrointestinal: Denies change in stool character, Denies nausea and Denies vomiting *Genitourinary Genitourinary: Denies difficulty urinating *Musculoskeletal Musculoskeletal: Denies abnormal gait Integumentary/Breasts Skin/Breast: Denies changing lesions *Neurologic Neurologic: Denies abnormal gait, Reports dizziness, Reports frequent falls, Reports headache(s), Denies loss of vision and Reports weakness Endocrine Endocrine: Denies fatigue Exam Data for Last 24 hours Vital signs and Labs for Last 24 Hours: Temp Pulse Resp BP Pulse Ox O2 Del Method 98.1 F 72 18 148/71 H 97 Room Air 03/10/25 08:00 03/10/25 08:00 03/10/25 08:00 03/10/25 08:00 03/10/25 08:00 03/10/25 08:00 Laboratory Results - last 24 hr 03/09/25 18:00: WBC 6.2, RBC 5.68, Hgb 18.3 H, Hct 52.6 H, MCV 92.6, MCH 32.0 H, MCHC 34.6, RDW 12.8, Plt Count 200, MPV 9.7, Neut % (Auto) 57.9, Lymph % (Auto) 31.6, [place] % (Auto) 7.4, Eos % (Auto) 1.9, Baso % (Auto) 1.0, Neut # (Auto) 3.6, Lymph # (Auto) 2.0, [place] # (Auto) 0.5, Eos # (Auto) 0.1, Baso # (Auto) 0.1, D- Dimer 0.38, Sodium 138, Potassium 4.2, Chloride 110 H, Carbon Dioxide 23, Anion Gap 9.2, BUN 15, Creatinine 1.00, Estimated Creat Clear 104, Estimated GFR 73, Est GFR ([facility] Amer) 88, Glucose 171 H, Calcium 9.0, Total Bilirubin 1.4 H, AST 28, ALT 26, Alkaline Phosphatase 37 L, Troponin I < 0.01, Total Protein 7.0, Albumin 4.2, Globulin 2.8, Albumin/Globulin Ratio 1.5, HCV Ab ROULA w/Rflx PCR Qn Negative, HIV Ag/Ab Combo Qual Negative 03/09/25 18:43: SARS-CoV-2 (PCR) Not detected, Influenza A Untype (PCR) Not detected, Influenza Type B (PCR) Not detected 03/09/25 21:08: Troponin I < 0.01 03/10/25 01:33: Troponin I < 0.01 03/10/25 05:34: POC Glucose 120 H 03/10/25 08:19: WBC 6.5, RBC 5.57, Hgb 17.9, Hct 52.2 H, MCV 93.7, MCH 32.1 H, MCHC 34.3, RDW 12.8, Plt Count 158, MPV 9.4, Neut % (Auto) 60.2, Lymph % (Auto) 25.9, [place] % (Auto) 10.0 H, Eos % (Auto) 2.3, Baso % (Auto) 1.1, Neut # (Auto) 3.9, Lymph # (Auto) 1.7, [place] # (Auto) 0.7, Eos # (Auto) 0.2, Baso # (Auto) 0.1, Sodium 138, Potassium 4.6, Chloride 110 H, Carbon Dioxide 28, Anion Gap 4.6 L, BUN 16, Creatinine 1.00, Estimated Creat Clear 91, Estimated GFR 73, Est GFR ([facility] Amer) 88, Glucose 118 H D, Calcium 8.7, Phosphorus 3.4, Magnesium 2.2, Total Bilirubin 1.9 H, AST 23, ALT 21, Alkaline Phosphatase 42, Total Protein 6.6, Albumin 3.9, Globulin 2.7, Albumin/Globulin Ratio 1.4, Triglycerides 93, Cholesterol 100 L, LDL Cholesterol Direct 49.51 L, VLDL Cholesterol 19, HDL Cholesterol 36 L, Cholesterol/HDL Ratio 2.8 I & O for Last 24 hours: Intake & Output 03/07/25 03/08/25 03/09/25 03/10/25 23:59 23:59 23:59 23:59 Output Total 0 / 0 Balance 0 / 0 Weight 219 lb 1.6 oz 219 lb 1.597 oz Constitutional Constitutional: no acute distress and cooperative *Routine HEENT Exam Eye: Present PERRL *Routine Respiratory Exam Respiratory: Present CTA bilaterally; Absent accessory muscle use, wheezes or crackles *Routine Cardiovascular Exam Cardiovascular: Present RRR, Normal S1 and Normal S2; Absent murmur, gallop or rubs *Routine Abdominal Exam Abdominal: Present soft; Absent tenderness *Routine Extremities Exam Extremities: Present pulses intact; Absent cyanosis or edema *Routine Skin Exam Skin: Present intact; Absent erythema or wounds *Routine Neurological Exam Neurological: Present alert and oriented X3 Routine Psychiatric Exam Psychiatric: Present cooperative Meds Home Medications and Allergies Home Medications ?Medication ?Instructions ?Recorded ?Confirmed ?Type sacubitril 24 mg-valsartan 26 mg 1 tab PO BID #180 tabs 05/05/24 03/09/25 Rx tablet (Entresto) clopidogrel 75 mg tablet (Plavix) 75 mg PO DAILY 07/06/24 03/09/25 History isosorbide mononitrate 30 mg 30 mg PO DAILY #90 tabs 12/29/24 03/09/25 Rx tablet,extended release 24 hr buspirone 10 mg tablet 10 mg PO BID #180 tabs 01/06/25 03/09/25 Rx diazepam 5 mg tablet (Valium) 5 mg PO BID PRN anxiety #60 tabs 01/06/25 03/09/25 Rx lancets (Accu-Chek Fastclix Lancet #100 ea 01/19/25 03/09/25 Rx Drum) blood sugar diagnostic (Accu-Chek #100 ea 02/03/25 03/09/25 Rx SmartView Test Strips) desvenlafaxine succinate 50 mg 50 mg PO DAILY #30 tabs 02/04/25 03/09/25 Rx tablet,extended release 24 hr (Pristiq) atorvastatin 10 mg tablet (Lipitor) 10 mg PO HS 03/10/25 03/10/25 History carvedilol 25 mg tablet (Coreg) 25 mg PO BID 03/10/25 03/09/25 History empagliflozin 25 mg tablet 25 mg PO DAILY 03/10/25 03/10/25 History (Jardiance) nitroglycerin 0.4 mg sublingual 0.4 mg sublingual Q5MINP PRN Chest 03/10/25 03/10/25 History tablet Pain pantoprazole 40 mg tablet,delayed 40 mg PO HS 03/10/25 03/10/25 History release rivaroxaban 20 mg tablet (Xarelto) 20 mg PO QPMWITHMEAL 03/10/25 03/10/25 History trazodone 50 mg tablet 50 - 100 mg PO HS PRN sleep 03/10/25 03/10/25 History New Prescriptions to Start Prescriptions: Allergies Allergy/AdvReac Type Severity Reaction Status Date / Time cinnamon (CINNAMON) Allergy Severe S-DIFF. Verified 02/03/25 08:49 BREATHING adhesive tape Allergy Mild Rash Verified 02/03/25 08:49 orange juice Allergy Mild Rash Verified 03/09/25 18:28 acetaminophen (From Percocet) Allergy Confusion Verified 03/09/25 18:28 oxycodone (From Percocet) Allergy Confusion Verified 03/09/25 18:28 Assessment and Plan *Assessment and plan (1) Angina pectoris, unstable: Status: Acute Category: Medical Code(s): I20.0 - Unstable angina (2) HTN (hypertension): Status: Acute Category: Medical Code(s): I10 - Essential (primary) hypertension (3) Generalized anxiety disorder: Status: Acute Category: Medical Code(s): F41.1 - Generalized anxiety disorder (4) Encephalopathy acute: Status: Acute Category: Medical Code(s): G93.40 - Encephalopathy, unspecified (5) Dizziness: Status: Acute Category: Medical Code(s): R42 - Dizziness and giddiness Plan MV-CAD with Unstable Angina - GARIMA 2008, 2021, LAD/RCA nonamenable on [facility] 10/2023 - severe substernal CP late 03/09 resolved with repeated ntg and transported to ED via EMS, nml Trop, no ST elevations - CP improving - Inpatient Lexiscan-Myoview today shows TID, recommend C - Hold home dose Xarelto - ASA, Lovenox here - [facility] tomorrow Acute Encephalopathy - CT Head normal, no focal deficits - Consider cerebral or carotid disease - ASA, Statin - Carotid Duplex A-fib, long standing persistant - rate controlled here - cont Coreg - Xarelto on hold for cath, add Lovenox 1mg/kg
--- NOTE | 2025-03-10 14:35 | P.PN_ITS ---
Subjective *Date: 03/10/25 *Time: 14:35 Interval history: Chest pain-free this morning. Denies any shortness of breath. No nausea or vomiting. Going for stress test today. Alert and oriented x 4. at bedside Medical Exam Vital signs and Labs for Last 24 Hours: Vital Signs Temp Pulse Pulse Resp BP BP Pulse Ox 03/10/25 14:24 03/10/25 08:00 98.1 F 72 18 148/71 H 97 03/10/25 08:00 03/10/25 08:00 80 03/10/25 07:50 03/10/25 06:36 03/10/25 05:00 03/10/25 04:00 65 03/10/25 03:38 97.6 F 70 18 117/75 97 03/10/25 03:00 03/10/25 01:00 03/10/25 00:00 60 03/09/25 23:21 98.0 F 66 16 129/85 95 03/09/25 23:13 60 03/09/25 23:02 98.3 F 72 17 129/85 03/09/25 23:00 03/09/25 22:44 70 16 129/85 97 03/09/25 22:00 64 12 129/68 95 03/09/25 21:51 03/09/25 21:30 65 14 125/78 95 03/09/25 21:06 75 12 144/89 H 95 03/09/25 21:00 78 13 140/95 H 96 03/09/25 20:30 75 16 119/72 94 L 03/09/25 20:00 81 15 121/74 93 L 03/09/25 19:41 90 23 122/88 94 L 03/09/25 19:38 63 20 129/86 93 L 03/09/25 19:30 13 127/84 88 L 03/09/25 19:00 82 17 134/75 91 L 03/09/25 18:31 79 38 H 138/86 98 03/09/25 18:29 98.3 F 86 22 136/80 97 O2 Del Method 03/10/25 14:24 Room Air 03/10/25 08:00 Room Air 03/10/25 08:00 Room Air 03/10/25 08:00 03/10/25 07:50 Room Air 03/10/25 06:36 Room Air 03/10/25 05:00 Room Air 03/10/25 04:00 03/10/25 03:38 Room Air 03/10/25 03:00 Room Air 03/10/25 01:00 Room Air 03/10/25 00:00 03/09/25 23:21 Room Air 03/09/25 23:13 03/09/25 23:02 Room Air 03/09/25 23:00 Room Air 03/09/25 22:44 03/09/25 22:00 03/09/25 21:51 Room Air 03/09/25 21:30 03/09/25 21:06 03/09/25 21:00 03/09/25 20:30 03/09/25 20:00 03/09/25 19:41 03/09/25 19:38 03/09/25 19:30 03/09/25 19:00 Room Air 03/09/25 18:31 03/09/25 18:29 Room Air Intake and Output 03/09/25 03/10/25 03/10/25 23:59 07:59 15:59 Output Total 0 / 0 Balance 0 / 0 Output: Output, Urine Amount 0 / 0 Other: Number of Unmeasured Voids 1 Weight 99.382 kg 99.382 kg Patient Weight 03/10/25 23:59 Weight 99.382 kg Laboratory Results - last 24 hr 03/09/25 18:00: WBC 6.2, RBC 5.68, Hgb 18.3 H, Hct 52.6 H, MCV 92.6, MCH 32.0 H, MCHC 34.6, RDW 12.8, Plt Count 200, MPV 9.7, Neut % (Auto) 57.9, Lymph % (Auto) 31.6, [place] % (Auto) 7.4, Eos % (Auto) 1.9, Baso % (Auto) 1.0, Neut # (Auto) 3.6, Lymph # (Auto) 2.0, [place] # (Auto) 0.5, Eos # (Auto) 0.1, Baso # (Auto) 0.1, D- Dimer 0.38, Sodium 138, Potassium 4.2, Chloride 110 H, Carbon Dioxide 23, Anion Gap 9.2, BUN 15, Creatinine 1.00, Estimated Creat Clear 104, Estimated GFR 73, Est GFR ( Amer) 88, Glucose 171 H, Calcium 9.0, Total Bilirubin 1.4 H, AST 28, ALT 26, Alkaline Phosphatase 37 L, Troponin I < 0.01, Total Protein 7.0, Albumin 4.2, Globulin 2.8, Albumin/Globulin Ratio 1.5, HCV Ab ROULA w/Rflx PCR Qn Negative, HIV Ag/Ab Combo Qual Negative 03/09/25 18:43: SARS-CoV-2 (PCR) Not detected, Influenza A Untype (PCR) Not detected, Influenza Type B (PCR) Not detected 03/09/25 21:08: Troponin I < 0.01 03/10/25 01:33: Troponin I < 0.01 03/10/25 05:34: POC Glucose 120 H 03/10/25 08:19: WBC 6.5, RBC 5.57, Hgb 17.9, Hct 52.2 H, MCV 93.7, MCH 32.1 H, MCHC 34.3, RDW 12.8, Plt Count 158, MPV 9.4, Neut % (Auto) 60.2, Lymph % (Auto) 25.9, [place] % (Auto) 10.0 H, Eos % (Auto) 2.3, Baso % (Auto) 1.1, Neut # (Auto) 3.9, Lymph # (Auto) 1.7, [place] # (Auto) 0.7, Eos # (Auto) 0.2, Baso # (Auto) 0.1, Sodium 138, Potassium 4.6, Chloride 110 H, Carbon Dioxide 28, Anion Gap 4.6 L, BUN 16, Creatinine 1.00, Estimated Creat Clear 91, Estimated GFR 73, Est GFR ( Amer) 88, Glucose 118 H D, Calcium 8.7, Phosphorus 3.4, Magnesium 2.2, Total Bilirubin 1.9 H, AST 23, ALT 21, Alkaline Phosphatase 42, Total Protein 6.6, Albumin 3.9, Globulin 2.7, Albumin/Globulin Ratio 1.4, Triglycerides 93, Cholesterol 100 L, LDL Cholesterol Direct 49.51 L, VLDL Cholesterol 19, HDL Cholesterol 36 L, Cholesterol/HDL Ratio 2.8 I & O for Labs for Last 24 Hours: Intake & Output 03/07/25 03/08/25 03/09/25 03/10/25 23:59 23:59 23:59 23:59 Output Total 0 / 0 Balance 0 / 0 Weight 99.382 kg 99.382 kg Constitutional: Present no acute distress, obese, chronically ill appearing and cooperative Head: Present atraumatic and normocephalic ENT: Present normal exam Neck: Present normal inspection Respiratory: Present CTA bilaterally; Absent respiratory distress, rhonchi, stridor or wheezes Cardiac: Present Reg Rate and Rhythm GI: Present soft; Absent distention Neuro: Present Grossly Intact, alert, awake, oriented x 3 and moves all extremities Assessment and Plan *Assessment and plan (1) Angina pectoris, unstable: Status: Acute Category: Medical Code(s): I20.0 - Unstable angina (2) HTN (hypertension): Status: Acute Category: Medical Code(s): I10 - Essential (primary) hypertension (3) Generalized anxiety disorder: Status: Acute Category: Medical Code(s): F41.1 - Generalized anxiety disorder (4) Encephalopathy acute: Status: Acute Category: Medical Code(s): G93.40 - Encephalopathy, unspecified (5) Dizziness: Status: Acute Category: Medical Code(s): R42 - Dizziness and giddiness (6) Abnormal cardiovascular stress test: Status: Acute Category: Medical Code(s): R94.39 - Abnormal result of other cardiovascular function study (7) Neuropathy: Status: Acute Category: Medical Code(s): G62.9 - Polyneuropathy, unspecified (8) Diabetes mellitus, type II: Status: Acute Qualifiers: 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 Presented with chest pain. Taken for M2 Connectionsiscan Myoview today, found to be abnormal. Cardiology recommends heart cath. Plan for heart cath in the morning. Continues to require patient management. Problems addressed as follows: Unstable angina CAD History of drug-eluting stents Hypertension - GARIMA 2021, LAD/RCA nonamenable on [facility] 10/2023 - Continue to have chest pain. Taken for Lexiscan/Myoview today with abnormalities identified. Discussed case with cardiology, recommends left heart cath in the morning. N.p.o. at midnight for intervention. - Serial troponins remain negative - Hold home dose Xarelto - Continue aspirin 81 mg daily, Plavix 75 mg daily. - Continue Lipitor 10 mg nightly for hyperlipidemia, continue carvedilol 25 mg twice daily, continue Jardiance 25 mg daily, continue isosorbide mononitrate 30 mg daily, continue Entresto 24/26 mg twice daily Depression: Mood disorder: Continue Valium 5 mg as needed twice daily, BuSpar 10 mg twice daily, desvenlafaxine 50 mg daily A-fib, long standing persistant - rate controlled, continue coreg BID - Continue Lovenox 1 mg/kg twice daily as bridge for heart cath, Xarelto held until post cath. Diabetes: A1c 7.4 in September, initiate sliding scale insulin and fingersticks ACHS. Repeat A1c ordered. Continue Jardiance as above Continue home pantoprazole for GERD Cardiac diet Lovenox Full code
[2025-03-10] MEDS: ENOXAPARIN 100MG/ML SYRINGE 100 MG SUBCUT (14:39)
[2025-03-10] MEDS: DESVENLAFAXINE SUCCINATE 50 MG 50 EACH PO (16:28)
[2025-03-10 16:44] LABS: POC Glucose,Bedside 164 (70-110)
--- NOTE | 2025-03-10 18:25 | PC.NURSE ---
PATIENT IS ALERT AND ORIENTED X4, DENIES CHEST PAIN OR SHORTNESS OF BREATH. PATIENT WAS IN AFIB W/ CONTROLLED RATE THIS MORNING BUT HAS CONVERTED BACK TO NSR. HOME MEDICATION PRISTIQ WAS BROUGHT FROM HOME BY , VERIFIED BY PHARMACY AND PUT IN OMNICELL. PATIENT WILL BE NPO AFTER MIDNIGHT FOR LEFT HEART CATH TOMORROW.
[2025-03-10 20:57] LABS: POC Glucose,Bedside 107 (70-110)
[2025-03-10] MEDS: ATORVASTATIN 10MG TABLET 10 MG PO (21:16)
[2025-03-10] MEDS: PANTOPRAZOLE 40MG TABLET 40 MG PO (21:16)
[2025-03-10] MEDS: HYDROCODONE/APAP 5/325 MG TABLET 1 TAB PO (21:40)
--- NOTE | 2025-03-10 22:44 | CA_ITS ---
APPROVED REPORT EXAM: Limited 2D, Doppler, and color-flow Echocardiogram with contrast Rare/Endangered Species Specialist: Jackelin Prado CRT Ht: 5 ft 10 in Wt: 250lbs BSA: 2.29 BP: 121/74 mmHg Indications: Chest Pain, Atrial Fibrillation, Diabetes, CAD, Hyperlipidemia, Hypertension/HDD, stents, LIBIA REN CARDIOVERSION 11/06/23 EF 55% Echo Enhancing Agent Indication: Endocardial border delineation Agent(s) / Amount(s) Used: Definity 2 cc Comments: Definity given 2D Dimensions LA Volume 53.70 mL LA Volume Index 22.90 mL/m2 (M/F) 16-34 M-Mode Dimensions RVDd 3.03 cm (0.9-2.6) LA Diam 4.78 cm (1.9-4.0) LVDd 3.56 cm (3.5-5.7) LVDs 2.23 cm (3.5-5.7) IVSd 1.78 cm (0.6-1.1) PWd 0.79 cm (0.6-1.1) EF (Teich) 68.30% FS 37.40% EDV (Teich) 53.00 mL TAPSE 1.78 (<1.7) ESV (Teich) 16.80 mL LV Diastology E Decel Time 160 (160-240 msec) E/A Ratio 4.60 MED A' 2.50 cm/s LAT A' 3.90 cm/s Aortic Valve AI PHT 514.00 ms AO Peak GR. 2.70 mmHg Mitral Valve MV A Velocity 21.0 (40-130 cm/s) E/A Ratio 4.60 Pulmonary Valve PV Peak Velocity 116.0 (50-150 cm/s) Tricuspid Valve TR P. Velocity 277.00 cm/s RAP Estimate 10.00 mmHg RVSP 40.60 mmHg Left Ventricle The left ventricle is normal size. The left ventricular systolic function is normal. The left ventricular ejection fraction is within the normal range. There is increased overall thickness. There is normal LV segmental wall motion. Diastolic function is indeterminate. No left ventricle thrombus noted on this study. LVEF is 55%. Right Ventricle Right ventricle is mild to moderately dilated. Right ventricle is mildly hypokinetic. Atria The left atrium is moderately dilated. Right atrium is moderately dilated. There is no Doppler evidence of interatrial shunt. Aortic Valve The aortic valve is mildly thickened. There is no aortic valvular stenosis. Mild aortic regurgitation. Mitral Valve The mitral valve is normal in structure. Mild mitral regurgitation. Tricuspid Valve Tricuspid valve is grossly normal in structure and function. Mild tricuspid regurgitation. RVSP is 25-30 mmHg. Pulmonic Valve The pulmonary valve is normal in structure. Trace pulmonic regurgitation. Great Vessels The aortic root is normal in size. The ascending aorta is mildly dilated, measuring 3.8 cm in diameter. IVC is normal in size and collapses >50% with inspiration. Pericardium There is no pericardial effusion. Other Information Study Quality: Technically Difficult Conclusion Technically difficult study due to poor acoustic windows. Normal biventricular systolic function. Mild to moderate RV dilation with mild reduction in LV function. Biatrial dilation. Mild AI, mild MR, mild TR. Electronically signed by : Krissy Sandhu MD 03/10/2025 12:27:34
[2025-03-11] VITALS (18 sets, daily range): BP systolic 101–147; BP diastolic 55–78; PULSE 70–92; RESP 16–20; TEMP 36.6–36.9; O2SAT 91–97; BMI 32.1
[2025-03-11 05:31] LABS: POC Glucose,Bedside 114 (70-110)
--- NOTE | 2025-03-11 05:43 | PC.NURSE ---
Pt is currently in Afib on telemetry. Pt denies chest pain when asked. Pt is NPO and has been since 0000 this shift for possible heart cath
[2025-03-11 06:18] LABS: Basophils # 0.1 K/mm3 (0-0.2); Eosinophils # 0.1 Kmm3 (0.0-0.4); Lymphocytes # 1.7 K/mm3 (0.7-4.5); Nucleated Red Blood Cells # 0 10^3/uL; Nucleated Red Blood Cells % 0 %
[2025-03-11 06:24] LABS: Albumin Level 3.8 g/dl (3.5-5.0); Chloride 106 mmol/L (98-107); Potassium 4.9 mmoL/L (3.5-5.1); Sodium 137 mmol/L (136-145)
[2025-03-11 06:27] LABS: Alanine Aminotransferase 21 U/L (12-78); Albumin/Globulin Ratio 1.4 (1.1-1.8); Alkaline Phosphatase 28 U/L (38-126); Anion Gap 9.9 mEq/L (5-15); Aspartate Amino Transferase 26 U/L (17-59); Bilirubin,Total 2.2 mg/dl (0.2-1.3); Blood Urea Nitrogen 16 mg/dl (9-20); Calcium 8.9 mg/dl (8.4-10.2); Carbon Dioxide 26 mmol/L (22.0-30.0); Creatinine Clearance Estimated 93 mL/min (50-200); Estimated Glomerular Filt Rate 82 ml/min (>60); GFR (African American) 100 ML/MIN (>60); Globulin 2.7 g/dL (1.3-3.2); Glucose 114 mg/dl (74-100); Total Protein,Serum 6.5 g/dl (6.3-8.2)
[2025-03-11 06:28] LABS: Magnesium 1.9 mg/dl (1.6-2.3)
[2025-03-11 06:56] LABS: Basophils % 0.8 % (0.1-2.0); Eosinophils % 2.4 % (0.1-12.0); Hematocrit 53.9 % (42.0-52.0); Immature Granulocytes # 0.02 10^3uL; Immature Granulocytes % 0.3 %; Lymphocytes % 28.3 % (10-50); Mean Corpuscular HGB Conc 34.3 g/dL (31.8-35.4); Mean Corpuscular Volume 93.3 fl (80-94); Mean Platelet Volume 9.7 fl (7.4-10.4); Monocytes # 0.6 K/mm3 (0.1-1.0); Monocytes % 10.8 % (1.7-9.3); Neutrophils # 3.4 K/mm3 (1.8-7.8); Neutrophils % 57.4 % (37.0-80.0); Platelet Count 171 K/mm3 (142-424); Red Blood Count 5.78 M/mm3 (4.60-6.20); Red Cell Distribution Width 12.9 % (11.5-17.5); White Blood Count 5.9 K/mm3 (4.8-10.8)
[2025-03-11 07:01] LABS: Hemoglobin 18.5 g/dL (14.1-18.0)
[2025-03-11] MEDS: ASPIRIN EC 81MG TABLET 81 MG PO (08:34)
[2025-03-11] MEDS: BUSPIRONE HCL 10 MG TABLET PO ×2 (08:34→20:21)
[2025-03-11] MEDS: CLOPIDOGREL 75MG TAB 75 MG PO (08:34)
[2025-03-11] MEDS: CARVEDILOL 25MG TABLET 25 MG PO ×2 (08:35→20:21)
[2025-03-11] MEDS: SACUBITRIL/VALSARTAN 24-26MG TABLET 1 EACH PO ×2 (08:35→20:20)
[2025-03-11] MEDS: DESVENLAFAXINE SUCCINATE 50 MG 50 EACH PO (08:35)
[2025-03-11] MEDS: EMPAGLIFLOZIN 25MG TABLET 25 MG PO (08:37)
[2025-03-11] MEDS: ISOSORBIDE MONO 30MG TAB.ER.24H 30 MG PO (08:37)
--- NOTE | 2025-03-11 10:00 | IR_ITS ---
APPROVED REPORT Patient Location: Inpatient PROCEDURES Left heart catheterization Left ventriculogram Selective coronary angiogram INDICATION Abnormal stress test, Known coronary artery disease, Angina pectoris Informed consent was obtained prior to the procedure. COMPLICATIONS NONE Estimated Blood Loss: LESS THAN 10 ML TECHNIQUE One percent lidocaine used to anesthetize the right anterior aspect of the wrist. The right radial artery was accessed via the Seldinger technique. A 6 [place] sheath was placed in the right radial artery. 2.5 mg of Verapamil, 800 mcg of nitroglycerin, 1mg Lidocaine and 5000 U Heparin were given through the arterial sheath. The JL3 catheter was also used to perform left heart catheterization, left ventriculogram and selective coronary angiogram. At the end of the procedure the sheath was removed good hemostasis was achieved using Traclet band, patient was transferred to the postop holding area in stable condition. ANGIOGRAPHIC RESULTS The left main artery Normal The left anterior descending artery Has a stent in the proximal to mid segment which is widely patent with minimal in-stent restenosis with excellent proximal distal transitioning. Distally in the LAD there is a 40 and then 60% stenosis just as the LAD wraps the apex. A small to medium sized first diagonal artery has a proximal concentric 60% stenosis The circumflex artery Nondominant with a stent in the proximal to mid segment which is widely patent free of in-stent restenosis with excellent proximal distal transitioning The right coronary artery Is dominant and occluded in the mid to distal segment. The distal right coronary artery fills via both left to right collaterals and right to right collaterals The HANC[place] ventriculogram reveals Normal 65% The left ventricular end-diastolic pressure 20 mmHg IMPRESSION Coronary artery disease which is unchanged from cardiac catheterization last year Normal ejection fraction Elevated LVEDP PLAN 1. Continue medical management for coronary artery disease. Nothing in the angiogram today explains patient's severe and sudden onset symptoms. The cardiac catheterization is unchanged from last year and actually there has been improvement in the ejection fractions from last year 2. Recommend GI evaluation 3. Recommend CTA of chest and lungs 4. Risk factor modification Electronically signed by : Alfredito Gooden MD 03/11/2025 12:17:05
--- NOTE | 2025-03-11 10:40 | P.PN_ITS ---
Subjective Subjective Date: 03/11/25 Time: 09:30 Interval history: Stress test yesterday positive for 3 times daily, left heart cath recommended. Patient agreeable. 2D echo shows normal BiV function. Carotid duplex less than 50% stenosis bilaterally.Patient reports since his altered mental status episode in the ambulance he has had severe left frontal lobe pain. States the last time he had headache was 2008 so this is very unusual for him. Exam Data for Last 24 hours Vital signs and Labs for Last 24 Hours: Temp Pulse Resp BP Pulse Ox O2 Del Method O2 Flow Rate 98.3 F 88 16 147/73 H 97 Room Air 2 03/11/25 08:00 03/11/25 08:00 03/11/25 08:00 03/11/25 08:00 03/11/25 08:00 03/11/25 10:37 03/10/25 18:23 Laboratory Results - last 24 hr 03/10/25 16:35: POC Glucose 164 H 03/10/25 20:13: POC Glucose 107 03/11/25 05:21: POC Glucose 114 H 03/11/25 05:52: WBC 5.9, RBC 5.78, Hgb 18.5 H, Hct 53.9 H, MCV 93.3, MCH 32.0 H, MCHC 34.3, RDW 12.9, Plt Count 171, MPV 9.7, Neut % (Auto) 57.4, Lymph % (Auto) 28.3, [place] % (Auto) 10.8 H, Eos % (Auto) 2.4, Baso % (Auto) 0.8, Neut # (Auto) 3.4, Lymph # (Auto) 1.7, [place] # (Auto) 0.6, Eos # (Auto) 0.1, Baso # (Auto) 0.1, Sodium 137, Potassium 4.9, Chloride 106, Carbon Dioxide 26, Anion Gap 9.9, BUN 16, Creatinine 0.90, Estimated Creat Clear 93, Estimated GFR 82, Est GFR ( Amer) 100, Glucose 114 H, Hemoglobin A1c 7.0 H, Calcium 8.9, Magnesium 1.9 D, Total Bilirubin 2.2 H, AST 26, ALT 21, Alkaline Phosphatase 28 L, Total Protein 6.5, Albumin 3.8, Globulin 2.7, Albumin/Globulin Ratio 1.4 I & O for Last 24 hours: Intake & Output 03/08/25 03/09/25 03/10/25 03/11/25 23:59 23:59 23:59 23:59 Intake Total 570 / 570 480 / 480 Output Total 0 / 0 0 / 0 Balance 0 / 0 570 / 570 480 / 480 Weight 219 lb 1.6 oz 219 lb 1.597 oz 224 lb 8 oz Constitutional Constitutional: no acute distress and cooperative *Routine HEENT Exam Eye: Present PERRL *Routine Respiratory Exam Respiratory: Present CTA bilaterally; Absent accessory muscle use, wheezes or crackles *Routine Cardiovascular Exam Cardiovascular: Present RRR, Normal S1 and Normal S2; Absent murmur, gallop or rubs *Routine Abdominal Exam Abdominal: Present soft; Absent tenderness *Routine Extremities Exam Extremities: Present pulses intact; Absent cyanosis or edema *Routine Skin Exam Skin: Present intact; Absent erythema or wounds *Routine Neurological Exam Neurological: Present alert and oriented X3 Routine Psychiatric Exam Psychiatric: Present cooperative Progress Note: A&P Assessment and plan (1) Angina pectoris, unstable: Status: Acute (2) HTN (hypertension): Status: Acute (3) Generalized anxiety disorder: Status: Acute (4) Encephalopathy acute: Status: Acute (5) Dizziness: Status: Acute (6) Abnormal cardiovascular stress test: Status: Acute (7) Neuropathy: Status: Acute (8) Diabetes mellitus, type II: Status: Acute Assessment and Plan Assessment and Plan for All Diagnoses:: MV-CAD with Unstable Angina - GARIMA 2021, LAD/RCA nonamenable on [facility] 10/2023 - severe substernal CP late 03/09 resolved with repeated ntg and transported to ED via EMS, nml Trop, no ST elevations - CP improving - Inpatient Lexiscan-Myoview today shows TID, recommend [facility] - Hold home dose Xarelto - ASA, Lovenox here - [facility] today Acute Encephalopathy - CT Head normal - Persisting left frontal [place]ER[place]OTT since AMS epsidoe - Carotid Duplex normal - Continue ASA, Statin. Check MRI for CVA. A-fib, long standing persistant - rate controlled here - cont Coreg - Xarelto on hold for cath, add Lovenox 1mg/kg Addendum 13:14 -rapid response was called bedside for chest pain. On my arrival patient was clutching his left chest with severe pain diaphoresis. Numerous staff including hospitalist were already present. EKG showed A-fib with heart rate 110?120. Stat labs were ordered. Vitals were stable, glucose was stable. While patient was conscious he would have 1-2 minutes of severe 10/10 chest pain followed by complete loss of consciousness for approximately 5 minutes at a time. After patient would regain consciousness he would again complain of severe left-sided chest pain. Despite stable vitals and essentially unchanged EKG we felt essential to take patient urgently to the Sustainability Analyst as he was scheduled for this afternoon anyway. Heart cath verbal per Dr. Gooden indicates no change from 1 year prior, nothing on angiogram that would account for patient's severe episodic pain. Stat CT chest PE protocol ordered to rule out PE and dissection although this would be unusual presentation for either as pt had been asymptomatic for over 24 hours prior to today's episode.
--- NOTE | 2025-03-11 11:17 | ECG_ITS ---
APPROVED REPORT Exam: Resting ECG HR:96 bpm ECG Measurements Heart Rate 96 AXES QRSd 96 QRS 53 QT 312 T 59 QTc 366 Conclusion ATRIAL FIBRILLATION ABNORMAL RHYTHM ECG UNCONFIRMED REPORT Electronically signed by : Antwon Franklin MD 03/12/2025 07:59:23
[2025-03-11] MEDS: NITROGLYCERIN 0.4MG SL TABLET 0.4 MG SL (11:21)
[2025-03-11] MEDS: MORPHINE 2MG/ML SYRINGE 2 MG IV (11:29)
--- NOTE | 2025-03-11 11:31 | ECG_ITS ---
APPROVED REPORT Exam: Resting ECG HR:133 bpm ECG Measurements Heart Rate 133 AXES QRSd 92 QRS 53 QT 278 T 12 QTc 356 Conclusion ATRIAL FIBRILLATION WITH RAPID VENTRICULAR RESPONSE ABNORMAL RHYTHM ECG UNCONFIRMED REPORT Electronically signed by : Antwon Franklin MD 03/12/2025 07:59:16
--- NOTE | 2025-03-11 11:39 | ECG_ITS ---
APPROVED REPORT Exam: Resting ECG HR:97 bpm ECG Measurements Heart Rate 97 AXES QRSd 91 QRS 38 QT 339 T 36 QTc 394 Conclusion ATRIAL FIBRILLATION MINIMAL ST DEPRESSION [0.025+ mV ST DEPRESSION] ABNORMAL RHYTHM ECG UNCONFIRMED REPORT Electronically signed by : Antwon Franklin MD 03/12/2025 07:59:20
[2025-03-11] MEDS: diazePAM 10MG/2ML SYRINGE 5 MG IV (11:40)
[2025-03-11 11:42] LABS: MANUAL DIFFERENTIAL MANUAL DIFFERENTIAL (MANUAL DIFF)
[2025-03-11 11:44] LABS: Basophils # 0.1 K/mm3 (0-0.2); Eosinophils # 0.1 Kmm3 (0.0-0.4); Lymphocytes # 1.6 K/mm3 (0.7-4.5); Mean Corpuscular Volume 92.3 fl (80-94); Monocytes # 0.6 K/mm3 (0.1-1.0); Monocytes % 7.6 % (1.7-9.3)
[2025-03-11 11:49] LABS: Basophils % 0.7 % (0.1-2.0); Eosinophils % 1.3 % (0.1-12.0); Lymphocytes % 21.9 % (10-50); Mean Corpuscular HGB Conc 34.1 g/dL (31.8-35.4); Mean Corpuscular Hemoglobin 31.5 pg (27.0-31.2); Mean Platelet Volume 9.4 fl (7.4-10.4); Neutrophils # 5.1 K/mm3 (1.8-7.8); Neutrophils % 68.2 % (37.0-80.0); Platelet Count 183 K/mm3 (142-424); Red Blood Count 5.85 M/mm3 (4.60-6.20); Red Cell Distribution Width 12.6 % (11.5-17.5); White Blood Count 7.5 K/mm3 (4.8-10.8)
--- NOTE | 2025-03-11 11:49 | EXP.EVENT.NO ---
Rapid response called 1115. Patient had episode of severe chest pain and proceeded to pass out. Team responded with cardiology PA, hospitalist, nursing leadership and multiple nurses including patient's bedside nurse. Was monitored on telemetry with monitoring of vitals. Had at least 3 episodes of intense chest pain clutching his chest where he would then pass out after 30 to 60 seconds. Patient would lose consciousness and was nonresponsive to verbal or physical stimuli. Vitals remained normal with systolic blood pressure 130-150. Diastolic 90-100. Heart rate 80-1 10. Multiple EKGs obtained showing no STEMI, presence of A-fib. Labs obtained including CBC, CMP, troponin. Upholstery Covers Inspector was activated as he was scheduled for left heart cath this afternoon. Given intensity of chest pain and known presence of abnormalities on stress test, patient taken urgently from his room to the Upholstery Covers Inspector. Received 1 dose of nitroglycerin sublingual. Received 2 mg of morphine. Received 5 mg of Valium due to concern for possible seizure-like activity. Patient however did not appear postictal after he would regain consciousness he was alert and with complaint of chest pain again. Unclear if his chest pain was remitting or persistent and a source of his suspected syncope. On exam, heart rate irregular, lungs clear. Pupils equal and reactive. Pulses present in extremities. Placed on 2 L nasal cannula oxygen for comfort. Differential includes atypical seizure, syncope related to chest pain, coronary artery vasospasm.
--- NOTE | 2025-03-11 11:49 | PC.NURSE ---
AT 1115 PT CALLED OUT AND STATED I NEED HELP . WHEN STAFF WENT TO THE ROOM PT WAS CLUTCHING CHEST AND STATED HE WAS NOT OKAY. CHARGE NURSE, MINDA'Adithya, AND WENT TO BEDSIDE. EKG AND VS TAKEN. EKG WAS AFIB. BP 142/101, HR 120-140'S. CARDIOLOGY NOTIFIED. RAPID RESPONSE CALLED AT 1125. PT WAS HAVING BRIEF EPISODES OF UNCONSCIOUSNESS AND WHEN HE WOULD AWAKEN HE WOULD CLUTCH CHEST AGAIN. PT WAS GIVEN SL NITRO, MORPHINE 2MG AND VALIUM 5 MG IV. MECHANICAL MAINTENANCE INSTRUCTOR NOTIFIED. PT WAS TAKEN OFF FLOOR TO MECHANICAL MAINTENANCE INSTRUCTOR AT 1142.
[2025-03-11 11:52] LABS: Hemoglobin 18.4 g/dL (14.1-18.0)
[2025-03-11] MEDS: NITROGLYCERIN 800MCG/8ML SYR (CATH LAB) 800 MCG IA (11:54)
[2025-03-11] MEDS: HEPARIN 1,000 UNITS/500ML NS (CATH LAB) 3000 UNIT IV (11:54)
[2025-03-11] MEDS: diphenhydrAMINE 50MG/ML VIAL 50 MG IV (11:54)
[2025-03-11] MEDS: VERAPAMIL 2.5MG/ML 2ML VIAL 2.5 MG IV (11:55)
[2025-03-11] MEDS: HEPARIN 1,000 UNITS/ML 10ML VIAL (CATH LAB) 5000 UNIT IV (11:55)
[2025-03-11] MEDS: 0.9 % SODIUM CHLORIDE 500 ML 25 ML IV (11:55)
[2025-03-11] MEDS: LIDOCAINE 1% 10ML MDV 10 ML IJ (11:55)
[2025-03-11] MEDS: FENTANYL 100MCG/2ML VIAL 50 MCG IV (11:56)
[2025-03-11] MEDS: MIDAZOLAM HCL 1MG/ML 5ML VIAL 1 MG IV (11:56)
[2025-03-11 11:58] LABS: Alanine Aminotransferase 25 U/L (12-78); Albumin Level 4.2 g/dl (3.5-5.0); Albumin/Globulin Ratio 1.6 (1.1-1.8); Alkaline Phosphatase 44 U/L (38-126); Anion Gap 14.4 mEq/L (5-15); Aspartate Amino Transferase 28 U/L (17-59); Bilirubin,Total 2.5 mg/dl (0.2-1.3); Blood Urea Nitrogen 15 mg/dl (9-20); Calcium 8.8 mg/dl (8.4-10.2); Carbon Dioxide 22 mmol/L (22.0-30.0); Chloride 106 mmol/L (98-107); Creatinine Clearance Estimated 93 mL/min (50-200); Estimated Glomerular Filt Rate 82 ml/min (>60); GFR (African American) 100 ML/MIN (>60); Globulin 2.7 g/dL (1.3-3.2); Glucose 123 mg/dl (74-100); Potassium 4.4 mmoL/L (3.5-5.1); Sodium 138 mmol/L (136-145); Total Protein,Serum 6.9 g/dl (6.3-8.2)
--- NOTE | 2025-03-11 12:16 | CT_ITS ---
FINAL REPORT TECHNIQUE: The patient was injected with IV contrast. Axial images were obtained through the chest in a PE protocol. 3-D reconstruction images were also performed. Individualized dose reduction techniques using automated exposure control or adjustment of the MA and/or KV according to patient's size were employed. CLINICAL HISTORY: severe chest pain r/o PE and dissection COMPARISON: None FINDINGS: Mediastinal vasculature is adequately opacified. No pulmonary artery filling defects are identified to suggest PE. There is no aortic dissection. There is no axillary adenopathy. There is no hilar or mediastinal adenopathy. The heart size is normal. There is no pericardial or pleural effusion. Limited images of the upper abdomen demonstrate fatty infiltration of the liver. The gallbladder is present. Dependent edema is noted at the lung bases. IMPRESSION: No pulmonary embolus or dissection. Reviewed, Interpreted and Dictated by Anselmo Broussard MD Transcribed by Lucretia Purvis Authenticated and [facility]
[2025-03-11 12:20] LABS: Troponin I < 0.01 ng/ml (0.00-0.034)
[2025-03-11 12:32] LABS: Eosinophils % 1 % (0-3); Lymphocytes % 33 % (10-50); Monocytes % 5 % (2-9); Neutrophils % 61 % (42-76); Platelet Estimate Normal; RBC Morphology Normal; Total Cells Counted 100
[2025-03-11] MEDS: SODIUM CHLORIDE 0.9% 10ML SYR (RAD ONLY) 10 ML IV (13:04)
[2025-03-11] MEDS: IOPAMIDOL-370 (76%);100ML BOTTLE 80 ML IV (13:04)
[2025-03-11] MEDS: 0.9 % SODIUM CHLORIDE 50 ML VIAL IV (13:04)
[2025-03-11] MEDS: IOPAMIDOL-370 (76%);100ML BOTTLE 50 ML IV (14:25)
[2025-03-11] MEDS: ENOXAPARIN 100MG/ML SYRINGE 100 MG SUBCUT (15:17)
[2025-03-11 16:34] LABS: POC Glucose,Bedside 91 (70-110)
--- NOTE | 2025-03-11 17:31 | PC.NURSE ---
PT IS RESTING IN BED. ALERT AND ORIENTED X4. NO COMPLAINTS OF CP OR SOA SINCE ARRIVING BACK TO THE FLOOR FROM [employer] PLANT TREATER. DRESSING TO THE RIGHT RADIAL CATH SITE C/D/I. PT HAS AMBULATED TO THE BATHROOM. LUNG SOUNDS CLEAR. ABDOMEN SOFT/NON TENDER WITH ACTIVE BOWEL SOUNDS. WILL CONTINUE TO MONITOR.
--- NOTE | 2025-03-11 17:44 | EXP.ACUTE.PN ---
Subjective *Date: 03/11/25 *Time: 21:44 Interval history: Initial rounds, patient was stable on room air. Awaiting heart cath. Had no chest pain or discomfort. As the morning went on, patient developed acute onset of chest pain with rapid response called due to severe crushing chest pain followed by episode of syncope and loss of consciousness. Was unresponsive for few minutes before regaining consciousness and having 2 more similar episodes. See event note for full details. Was taken urgently for left heart cath. Found to have no occlusive lesions. CT also obtained. After extensive workup, patient is feeling better. Chest tender to palpation but no overt chest pain. Had headache this morning that is resolved. No nausea or vomiting. Alert and oriented x 4. Medical Exam Vital signs and Labs for Last 24 Hours: Vital Signs Temp Pulse Pulse Resp BP BP Pulse Ox 03/11/25 16:58 03/11/25 16:00 70 03/11/25 15:30 76 16 103/65 L 95 03/11/25 15:00 03/11/25 15:00 72 18 106/64 L 95 03/11/25 14:30 76 16 104/63 L 95 03/11/25 14:00 71 16 101/55 L 95 03/11/25 13:30 72 16 108/65 L 95 03/11/25 13:15 71 16 111/63 95 03/11/25 13:00 78 20 129/78 129/78 95 03/11/25 12:30 92 H 18 121/73 92 L 03/11/25 12:25 83 18 111/67 91 L 03/11/25 12:20 86 16 108/67 L 91 L 03/11/25 12:18 85 88 20 119/68 91 L 03/11/25 10:37 03/11/25 08:24 03/11/25 08:00 03/11/25 08:00 80 03/11/25 08:00 98.3 F 88 16 147/73 H 97 03/11/25 07:00 03/11/25 05:00 03/11/25 04:00 70 03/11/25 03:48 98.1 F 90 18 111/61 95 03/11/25 03:00 03/11/25 01:00 03/11/25 00:00 70 03/10/25 23:40 98.1 F 90 16 106/55 L 96 03/10/25 22:40 03/10/25 21:00 03/10/25 20:00 03/10/25 20:00 80 03/10/25 19:24 98.2 F 72 18 129/69 97 03/10/25 18:23 O2 Del Method O2 Flow Rate 03/11/25 16:58 Room Air 03/11/25 16:00 03/11/25 15:30 Room Air 03/11/25 15:00 Room Air 03/11/25 15:00 Room Air 03/11/25 14:30 Room Air 03/11/25 14:00 Room Air 03/11/25 13:30 Room Air 03/11/25 13:15 Room Air 03/11/25 13:00 Room Air 03/11/25 12:30 03/11/25 12:25 03/11/25 12:20 Room Air 03/11/25 12:18 Room Air 03/11/25 10:37 Room Air 03/11/25 08:24 Room Air 03/11/25 08:00 Room Air 03/11/25 08:00 03/11/25 08:00 Room Air 03/11/25 07:00 Room Air 03/11/25 05:00 Room Air 03/11/25 04:00 03/11/25 03:48 Room Air 03/11/25 03:00 Room Air 03/11/25 01:00 Room Air 03/11/25 00:00 03/10/25 23:40 Room Air 03/10/25 22:40 Room Air 03/10/25 21:00 Room Air 03/10/25 20:00 Room Air 03/10/25 20:00 03/10/25 19:24 Room Air 03/10/25 18:23 Room Air 2 Intake and Output 03/11/25 03/11/25 03/11/25 07:59 15:59 23:59 Intake Total 480 / 480 Output Total 0 / 0 Balance 480 / 480 Intake: Intake, Oral Amount 480 / 480 Output: Output, Urine Amount 0 / 0 Other: Number of Unmeasured Voids 1 Weight 101.831 kg Patient Weight 03/11/25 23:59 Weight 101.831 kg Laboratory Results - last 24 hr 03/10/25 20:13: POC Glucose 107 03/11/25 05:21: POC Glucose 114 H 03/11/25 05:52: WBC 5.9, RBC 5.78, Hgb 18.5 H, Hct 53.9 H, MCV 93.3, MCH 32.0 H, MCHC 34.3, RDW 12.9, Plt Count 171, MPV 9.7, Neut % (Auto) 57.4, Lymph % (Auto) 28.3, [place] % (Auto) 10.8 H, Eos % (Auto) 2.4, Baso % (Auto) 0.8, Neut # (Auto) 3.4, Lymph # (Auto) 1.7, [place] # (Auto) 0.6, Eos # (Auto) 0.1, Baso # (Auto) 0.1, Sodium 137, Potassium 4.9, Chloride 106, Carbon Dioxide 26, Anion Gap 9.9, BUN 16, Creatinine 0.90, Estimated Creat Clear 93, Estimated GFR 82, Est GFR ( Amer) 100, Glucose 114 H, Hemoglobin A1c 7.0 H, Calcium 8.9, Magnesium 1.9 D, Total Bilirubin 2.2 H, AST 26, ALT 21, Alkaline Phosphatase 28 L, Total Protein 6.5, Albumin 3.8, Globulin 2.7, Albumin/Globulin Ratio 1.4 03/11/25 16:23: POC Glucose 91 03/11/25 : WBC 7.5 D, RBC 5.85, Hgb 18.4 H, Hct 54.0 H, MCV 92.3, MCH 31.5 H, MCHC 34.1, RDW 12.6, Plt Count 183, MPV 9.4, Neut % (Auto) 68.2, Lymph % (Auto) 21.9, [place] % (Auto) 7.6, Eos % (Auto) 1.3, Baso % (Auto) 0.7, Neut # (Auto) 5.1, Lymph # (Auto) 1.6, [place] # (Auto) 0.6, Eos # (Auto) 0.1, Baso # (Auto) 0.1, Total Counted 100, Neutrophils % (Manual) 61, Lymphocytes % (Manual) 33, Monocytes % (Manual) 5, Eosinophils % (Manual) 1, Platelet Estimate Normal, RBC Morphology Normal, Sodium 138, Potassium 4.4, Chloride 106, Carbon Dioxide 22, Anion Gap 14.4, BUN 15, Creatinine 0.90, Estimated Creat Clear 93, Estimated GFR 82, Est GFR ( Amer) 100, Glucose 123 H, Calcium 8.8, Total Bilirubin 2.5 H, AST 28, ALT 25, Alkaline Phosphatase 44, Troponin I < 0.01, Total Protein 6.9, Albumin 4.2 D, Globulin 2.7, Albumin/Globulin Ratio 1.6 I & O for Labs for Last 24 Hours: Intake & Output 03/08/25 03/09/25 03/10/25 03/11/25 23:59 23:59 23:59 23:59 Intake Total 570 / 570 480 / 480 Output Total 0 / 0 0 / 0 0 / 0 Balance 0 / 0 570 / 570 480 / 480 Weight 99.382 kg 99.382 kg 101.831 kg Constitutional: Present no acute distress, obese, chronically ill appearing and cooperative Head: Present atraumatic and normocephalic ENT: Present normal exam Neck: Present normal inspection Respiratory: Present CTA bilaterally; Absent respiratory distress, rhonchi, stridor or wheezes Cardiac: Present Reg Rate and Rhythm Comment:: Chest tender to palpation along left sternal border costosternal margin GI: Present soft; Absent distention Extremities: Present normal inspection and full ROM; Absent tenderness or edema Skin: Present intact Neuro: Present Grossly Intact, alert, awake, oriented x 3 and moves all extremities Assessment and Plan *Assessment and plan (1) Angina pectoris, unstable: Status: Acute Category: Medical Code(s): I20.0 - Unstable angina (2) HTN (hypertension): Status: Acute Category: Medical Code(s): I10 - Essential (primary) hypertension (3) Generalized anxiety disorder: Status: Acute Category: Medical Code(s): F41.1 - Generalized anxiety disorder (4) Encephalopathy acute: Status: Acute Category: Medical Code(s): G93.40 - Encephalopathy, unspecified (5) Dizziness: Status: Acute Category: Medical Code(s): R42 - Dizziness and giddiness (6) Abnormal cardiovascular stress test: Status: Acute Category: Medical Code(s): R94.39 - Abnormal result of other cardiovascular function study (7) Neuropathy: Status: Acute Category: Medical Code(s): G62.9 - Polyneuropathy, unspecified (8) Diabetes mellitus, type II: Status: Acute Qualifiers: Diabetes mellitus complication detail: with polyneuropathy Diabetes mellitus complication status: with neurologic complications Diabetes mellitus pull through hooker insulin use: without pull through hooker use Qualified Code(s): E11.42 - Type 2 diabetes mellitus with diabetic polyneuropathy Category: Medical Code(s): E11.9 - Type 2 diabetes mellitus without complications Plan 74-year-old male with history of previous stenting. Presented with chest pain. Taken for Lexiscan Myoview today, found to be abnormal. After episodes of intense chest pain and syncope, taken for heart cath. Found to have no occlusive lesions. CT of chest personally reviewed with no gross abnormalities identified. Will continue to monitor overnight. Problems addressed as follows: Unstable angina CAD History of drug-eluting stents Hypertension - GARIMA 2021, LAD/RCA nonamenable on [facility] 10/2023 - Episode today was severe. Did not improve with nitro. Heart cath performed, no occlusive lesions. No changes to regimen at this time. - Initiate lidocaine patch topically daily for chest pain. - CTA of chest obtained. No PEs. No masses. No overt abnormalities identified. Given tenderness on exam, suspect musculoskeletal component. May have component of psychosomatic component due to anxiety. - Resume home dose Xarelto - Continue aspirin 81 mg daily, Plavix 75 mg daily. - Continue Lipitor 10 mg nightly for hyperlipidemia, continue carvedilol 25 mg twice daily, continue Jardiance 25 mg daily, continue isosorbide mononitrate 30 mg daily, continue Entresto 24/26 mg twice daily - Continue to monitor on telemetry Depression: Mood disorder: Continue Valium 5 mg as needed twice daily, BuSpar 10 mg twice daily, desvenlafaxine 50 mg daily A-fib, long standing persistant - rate controlled, continue coreg BID - Discontinue Lovenox, resume Xarelto. Diabetes: A1c 7.0 this morning. Continue sliding scale insulin and fingersticks ACHS.. Continue Jardiance as above Continue home pantoprazole for GERD Cardiac diet Lovenox Full code ICU/Critical care attestation This patient is critically ill with 35 minutes devoted solely to this patient managing life/organ supporting interventions that required physician assessment. This includes time spent at bedside addressing crushing chest pain with syncopal events, evaluating EKGs, monitoring vitals, assessing underlying etiology of his chest pain and syncopal events. Discussion with family. Initiation of IV morphine, Valium, sublingual nitro and monitoring for response. Discussion of patient with consultants and other care providers as well as updating patient and/or family (if patient by virtue of his/her condition is unable to participate in decision making). This does not include time spent performing separately billed procedures. Time is not concurrent with that of other providers.
[2025-03-11] MEDS: ATORVASTATIN 10MG TABLET 10 MG PO (20:20)
[2025-03-11] MEDS: PANTOPRAZOLE 40MG TABLET 40 MG PO (20:20)
[2025-03-11] MEDS: LIDOCAINE 5% TRANSDERMAL PATCH 1 EACH TD (20:20)
[2025-03-11 20:37] LABS: POC Glucose,Bedside 103 (70-110)
[2025-03-12] VITALS: PULSE 60
[2025-03-12 04:00] VITALS: BP 128/69; PULSE 80; PULSE 88; RESP 18; TEMP 36.8; O2SAT 96; BMI 30.4
[2025-03-12 06:20] LABS: POC Glucose,Bedside 95 (70-110)
--- NOTE | 2025-03-12 06:35 | PC.NURSE ---
patient has rested well. no unresponsive episodes or chest pain. remained in AFIB.
[2025-03-12 06:56] LABS: Basophils # 0.1 K/mm3 (0-0.2); Basophils % 0.7 % (0.1-2.0); Eosinophils # 0.1 Kmm3 (0.0-0.4); Eosinophils % 1.3 % (0.1-12.0); Hemoglobin 17.7 g/dL (14.1-18.0); Immature Granulocytes # 0.01 10^3uL; Immature Granulocytes % 0.1 %; Lymphocytes # 1.5 K/mm3 (0.7-4.5); Mean Corpuscular Hemoglobin 31.6 pg (27.0-31.2); Mean Corpuscular Volume 92.7 fl (80-94); Mean Platelet Volume 9.7 fl (7.4-10.4); Monocytes # 0.7 K/mm3 (0.1-1.0); Monocytes % 9.2 % (1.7-9.3); Neutrophils # 5.2 K/mm3 (1.8-7.8); Neutrophils % 68.7 % (37.0-80.0); Nucleated Red Blood Cells # 0 10^3/uL; Nucleated Red Blood Cells % 0 %; Platelet Count 165 K/mm3 (142-424); Red Blood Count 5.61 M/mm3 (4.60-6.20); Red Cell Distribution Width 12.8 % (11.5-17.5); Red Cell Distribution Width-SD 43.7 fL; White Blood Count 7.5 K/mm3 (4.8-10.8)
[2025-03-12 07:20] LABS: Alanine Aminotransferase 20 U/L (12-78); Albumin Level 3.7 g/dl (3.5-5.0); Albumin/Globulin Ratio 1.4 (1.1-1.8); Alkaline Phosphatase 38 U/L (38-126); Anion Gap 8.9 mEq/L (5-15); Aspartate Amino Transferase 22 U/L (17-59); Bilirubin,Total 2.1 mg/dl (0.2-1.3); Blood Urea Nitrogen 15 mg/dl (9-20); Calcium 8.6 mg/dl (8.4-10.2); Carbon Dioxide 24 mmol/L (22.0-30.0); Chloride 106 mmol/L (98-107); Creatinine Clearance Estimated 88 mL/min (50-200); Estimated Glomerular Filt Rate 94 ml/min (>60); GFR (African American) 114 ML/MIN (>60); Globulin 2.7 g/dL (1.3-3.2); Glucose 88 mg/dl (74-100); Potassium 3.9 mmoL/L (3.5-5.1); Sodium 135 mmol/L (136-145); Total Protein,Serum 6.4 g/dl (6.3-8.2)
--- NOTE | 2025-03-12 07:23 | P.DS_ITS ---
General Admission date:: 03/09/25 Discharge date: 03/12/25 HPI HPI HPI: 74-year-old history of coronary artery disease status post multiple PCI, multiple cardiac risk factors, presents emergency department for acute onset chest pain that occurred at rest while sitting on his swings. He describes about 5 hours ago that he had acute onset severe central heavy chest pressure radiating bilaterally. No other associated symptoms. He took a nitroglycerin and waited 10 minutes and then took another nitroglycerin. When his symptoms did not resolve he called the ambulance he continued to have symptoms until arr ival to the ED where he was given an additional nitroglycerin and aspirin and morphine. Currently he is chest pain-free. While in row patient had 15 minutes of hypoactive encephalopathy and was bord kaylin unresponsive. He was requiring multiple rounds of deep sternal rub in order to maintain consciousness. Patient has minimal recollection of this and it was hard for attention by his at bedside. EKG on arrival demonstrated rate controlled A-fib without ST deviations. Chest x-ray demonstrates mild left basilar opacities. Troponins normal x 2. D-dimer negative. Discussed admission for acute chest pain evaluation. Patient was agreeable. During the process evaluation I independently reviewed and interpreted EKG, chest x-ray and all laboratory findings. I independently obtained history and reviewed prior documentation. Further collaboration with the ER physician occurred. Hospital Course Hospital Course Hospital Course: 74-year-old male with history of previous stenting. Presented with chest pain. Taken for [place]u [place] today, found to be abnormal. Plan was for elective heart cath after stress test. Had a rapid response for able to go for stress test. Was taken for heart cath with no flow-limiting lesions. Imaging of chest also obtained. Patient found to not have significant coronary artery disease and no abnormalities on his chest. Otherwise hemodynamically stable. Needs further evaluation as an outpatient for his anxiety which I believe is the cause of his syncope potentially an underlying etiology of his chest pain. Stable discharge home further management as an outpatient. Problems addressed as follows: Unstable angina CAD History of drug-eluting stents Hypertension - GARIMA 2021, LAD/RCA nonamenable on [facility] 10/2023. Episode on 03/11 of severe chest pain followed by syncopal event. Recurred 3 times. Rapid response was called and patient received nitroglycerin, morphine, Valium. Taken for heart cath. Found to have no occlusive lesions. Initiated on lidocaine patch topically and recommended ibuprofen and Tylenol for costochondritis/anxiety chest pain. As his cath was unremarkable, CT chest obtained with no acute abnormalities. No masses or fractures noted. CTA head no PEs. Patient does report carrying water in 3 gallon jugs. May have caused strain and musculoskeletal pain. Also concern for component of psychosomatic pain due to anxiety. Patient has significant anxiety after the loss of his son who was killed via gunfire. - Resume home dose Xarelto, Plavix 75 mg daily. Discontinue aspirin. Continue Lipitor 10 mg nightly for hyperlipidemia, continue carvedilol 25 mg twice daily, continue Jardiance 25 mg daily, continue isosorbide mononitrate 30 mg daily, continue Entresto 24/26 mg twice daily. No event on telemetry during admission. Depression: Mood disorder: Continue Valium 5 mg as needed twice daily, BuSpar 10 mg twice daily, desvenlafaxine 50 mg daily A-fib, long standing persistant: rate controlled, continue coreg BID Diabetes: A1c 7.0 during admission. Treated with sliding scale insulin during admission. Resume Jardiance at discharge. Exam Data for Last 24 hours Vital signs and Labs for Last 24 Hours: Temp Pulse Resp BP Pulse Ox O2 Del Method 98.1 F 72 18 148/71 H 97 Room Air 03/10/25 08:00 03/10/25 08:00 03/10/25 08:00 03/10/25 08:00 03/10/25 08:00 03/10/25 08:00 Laboratory Results - last 24 hr 03/09/25 18:00: WBC 6.2, RBC 5.68, Hgb 18.3 H, Hct 52.6 H, MCV 92.6, MCH 32.0 H, MCHC 34.6, RDW 12.8, Plt Count 200, MPV 9.7, Neut % (Auto) 57.9, Lymph % (Auto) 31.6, [place] % (Auto) 7.4, Eos % (Auto) 1.9, Baso % (Auto) 1.0, Neut # (Auto) 3.6, Lymph # (Auto) 2.0, [place] # (Auto) 0.5, Eos # (Auto) 0.1, Baso # (Auto) 0.1, D- Dimer 0.38, Sodium 138, Potassium 4.2, Chloride 110 H, Carbon Dioxide 23, Anion Gap 9.2, BUN 15, Creatinine 1.00, Estimated Creat Clear 104, Estimated GFR 73, Est GFR ( Amer) 88, Glucose 171 H, Calcium 9.0, Total Bilirubin 1.4 H, AST 28, ALT 26, Alkaline Phosphatase 37 L, Troponin I < 0.01, Total Protein 7.0, Albumin 4.2, Globulin 2.8, Albumin/Globulin Ratio 1.5, HCV Ab ROULA w/Rflx PCR Qn Negative, HIV Ag/Ab Combo Qual Negative 03/09/25 18:43: SARS-CoV-2 (PCR) Not detected, Influenza A Untype (PCR) Not detected, Influenza Type B (PCR) Not detected 03/09/25 21:08: Troponin I < 0.01 03/10/25 01:33: Troponin I < 0.01 03/10/25 05:34: POC Glucose 120 H 03/10/25 08:19: WBC 6.5, RBC 5.57, Hgb 17.9, Hct 52.2 H, MCV 93.7, MCH 32.1 H, MCHC 34.3, RDW 12.8, Plt Count 158, MPV 9.4, Neut % (Auto) 60.2, Lymph % (Auto) 25.9, [place] % (Auto) 10.0 H, Eos % (Auto) 2.3, Baso % (Auto) 1.1, Neut # (Auto) 3.9, Lymph # (Auto) 1.7, [place] # (Auto) 0.7, Eos # (Auto) 0.2, Baso # (Auto) 0.1, Sodium 138, Potassium 4.6, Chloride 110 H, Carbon Dioxide 28, Anion Gap 4.6 L, BUN 16, Creatinine 1.00, Estimated Creat Clear 91, Estimated GFR 73, Est GFR ( Amer) 88, Glucose 118 H D, Calcium 8.7, Phosphorus 3.4, Magnesium 2.2, Total Bilirubin 1.9 H, AST 23, ALT 21, Alkaline Phosphatase 42, Total Protein 6.6, Albumin 3.9, Globulin 2.7, Albumin/Globulin Ratio 1.4, Triglycerides 93, Cholesterol 100 L, LDL Cholesterol Direct 49.51 L, VLDL Cholesterol 19, HDL Cholesterol 36 L, Cholesterol/HDL Ratio 2.8 I & O for Last 24 hours: Intake & Output 03/07/25 03/08/25 03/09/25 03/10/25 23:59 23:59 23:59 23:59 Output Total 0 / 0 Balance 0 / 0 Weight 99.382 kg 99.382 kg Constitutional Constitutional: no acute distress, obese and cooperative *Routine HEENT Exam Head: Present normocephalic Eye: Present EOMI and PERRL ENT: Present mucous membranes moist *Routine Neck Exam Neck: Present supple; Absent lymphadenopathy Routine Chest/Breast/Axilla Exam Chest wall: Present tenderness (along left sternal border) *Routine Respiratory Exam Respiratory: Present CTA bilaterally; Absent rhonchi, wheezes or crackles *Routine Cardiovascular Exam Cardiovascular: Present RRR *Routine Abdominal Exam Abdominal: Present soft and normoactive bowel sounds; Absent tenderness *Routine Rectal Exam Patient deferred: visual exam *Routine Exam Patient deferred: penile exam *Routine Extremities Exam Extremities: Absent cyanosis, clubbing or edema *Routine Skin Exam Skin: Present intact and warm; Absent rash *Routine Neurological Exam Neurological: Present alert, oriented X3 and moving all extremities; Absent altered mental status Routine Psychiatric Exam Psychiatric: Present anxious Results Data Completed and Pending Labs on day of discharge: Labs from last 24 hours 03/10/25 03/10/25 03/10/25 08:19 05:34 01:33 WBC 6.5 RBC 5.57 Hgb 17.9 Hct 52.2 H MCV 93.7 MCH 32.1 H MCHC 34.3 RDW 12.8 Plt Count 158 MPV 9.4 Neut % (Auto) 60.2 Lymph % (Auto) 25.9 [place] % (Auto) 10.0 H Eos % (Auto) 2.3 Baso % (Auto) 1.1 Neut # (Auto) 3.9 Lymph # (Auto) 1.7 [place] # (Auto) 0.7 Eos # (Auto) 0.2 Baso # (Auto) 0.1 D-Dimer Sodium 138 Potassium 4.6 Chloride 110 H Carbon Dioxide 28 Anion Gap 4.6 L BUN 16 Creatinine 1.00 Estimated Creat Clear 91 Estimated GFR 73 Est GFR ( Amer) 88 Glucose 118 H D POC Glucose 120 H Calcium 8.7 Phosphorus 3.4 Magnesium 2.2 Total Bilirubin 1.9 H AST 23 ALT 21 Alkaline Phosphatase 42 Troponin I < 0.01 Total Protein 6.6 Albumin 3.9 Globulin 2.7 Albumin/Globulin Ratio 1.4 Triglycerides 93 Cholesterol 100 L LDL Cholesterol Direct 49.51 L VLDL Cholesterol 19 HDL Cholesterol 36 L Cholesterol/HDL Ratio 2.8 SARS-CoV-2 (PCR) HCV Ab ROULA w/Rflx PCR Qn HIV Ag/Ab Combo Qual Influenza A Untype (PCR) Influenza Type B (PCR) 03/09/25 03/09/25 03/09/25 21:08 18:43 18:00 WBC 6.2 RBC 5.68 Hgb 18.3 H Hct 52.6 H MCV 92.6 MCH 32.0 H MCHC 34.6 RDW 12.8 Plt Count 200 MPV 9.7 Neut % (Auto) 57.9 Lymph % (Auto) 31.6 [place] % (Auto) 7.4 Eos % (Auto) 1.9 Baso % (Auto) 1.0 Neut # (Auto) 3.6 Lymph # (Auto) 2.0 [place] # (Auto) 0.5 Eos # (Auto) 0.1 Baso # (Auto) 0.1 D-Dimer 0.38 Sodium 138 Potassium 4.2 Chloride 110 H Carbon Dioxide 23 Anion Gap 9.2 BUN 15 Creatinine 1.00 Estimated Creat Clear 104 Estimated GFR 73 Est GFR ( Amer) 88 Glucose 171 H POC Glucose Calcium 9.0 Phosphorus Magnesium Total Bilirubin 1.4 H AST 28 ALT 26 Alkaline Phosphatase 37 L Troponin I < 0.01 < 0.01 Total Protein 7.0 Albumin 4.2 Globulin 2.8 Albumin/Globulin Ratio 1.5 Triglycerides Cholesterol LDL Cholesterol Direct VLDL Cholesterol HDL Cholesterol Cholesterol/HDL Ratio SARS-CoV-2 (PCR) Not detected HCV Ab ROULA w/Rflx PCR Qn Negative HIV Ag/Ab Combo Qual Negative Influenza A Untype (PCR) Not detected Influenza Type B (PCR) Not detected DS: Diagnosis Discharge Diagnosis (1) CAD (coronary artery disease): Status: Acute Code(s): I25.10 - Atherosclerotic heart disease of [place] coronary artery without angina pectoris (2) Chest pain: Status: Acute Code(s): R07.9 - Chest pain, unspecified Qualifiers: Chest pain type: unspecified Qualified Code(s): R07.9 - Chest pain, unspecified (3) Atrial fibrillation: Status: Acute Code(s): I48.91 - Unspecified atrial fibrillation Qualifiers: Atrial fibrillation type: unspecified Qualified Code(s): I48.91 - Unspecified atrial fibrillation (4) Hyperlipidemia: Status: Chronic Code(s): E78.5 - Hyperlipidemia, unspecified Qualifiers: Hyperlipidemia type: mixed hyperlipidemia Qualified Code(s): E78.2 - Mixed hyperlipidemia (5) HTN (hypertension): Status: Acute Code(s): I10 - Essential (primary) hypertension (6) Generalized anxiety disorder: Status: Acute Code(s): F41.1 - Generalized anxiety disorder (7) Vasovagal syncope: Status: Suspected Code(s): R55 - Syncope and collapse Meds Home Medications and Allergies Home Medications ?Medication ?Instructions ?Recorded ?Confirmed ?Type sacubitril 24 mg-valsartan 26 mg 1 tab PO BID #180 tabs 05/05/24 03/09/25 Rx tablet (Entresto) clopidogrel 75 mg tablet (Plavix) 75 mg PO DAILY 07/06/24 03/09/25 History isosorbide mononitrate 30 mg 30 mg PO DAILY #90 tabs 12/29/24 03/09/25 Rx tablet,extended release 24 hr buspirone 10 mg tablet 10 mg PO BID #180 tabs 01/06/25 03/09/25 Rx diazepam 5 mg tablet (Valium) 5 mg PO BID PRN anxiety #60 tabs 01/06/25 03/09/25 Rx lancets (Accu-Chek Fastclix Lancet #100 ea 01/19/25 03/09/25 Rx Drum) blood sugar diagnostic (Accu-Chek #100 ea 02/03/25 03/09/25 Rx SmartView Test Strips) desvenlafaxine succinate 50 mg 50 mg PO DAILY #30 tabs 02/04/25 03/09/25 Rx tablet,extended release 24 hr (Pristiq) atorvastatin 10 mg tablet (Lipitor) 10 mg PO HS 03/10/25 03/10/25 History carvedilol 25 mg tablet (Coreg) 25 mg PO BID 03/10/25 03/09/25 History empagliflozin 25 mg tablet 25 mg PO DAILY 03/10/25 03/10/25 History (Jardiance) nitroglycerin 0.4 mg sublingual 0.4 mg sublingual Q5MINP PRN Chest 03/10/25 03/10/25 History tablet Pain pantoprazole 40 mg tablet,delayed 40 mg PO HS 03/10/25 03/10/25 History release rivaroxaban 20 mg tablet (Xarelto) 20 mg PO QPMWITHMEAL 03/10/25 03/10/25 History trazodone 50 mg tablet 50 - 100 mg PO HS PRN sleep 03/10/25 03/10/25 History lidocaine 5 % topical patch 1 patch transdermal Q24H #0 ea 03/12/25 Rx New Prescriptions to Start Prescriptions: Allergies Allergy/AdvReac Type Severity Reaction Status Date / Time cinnamon (CINNAMON) Allergy Severe S-DIFF. Verified 02/03/25 08:49 BREATHING adhesive tape Allergy Mild Rash Verified 02/03/25 08:49 orange juice Allergy Mild Rash Verified 03/09/25 18:28 acetaminophen (From Percocet) Allergy Confusion Verified 03/09/25 18:28 oxycodone (From Percocet) Allergy Confusion Verified 03/09/25 18:28 Discharge Plan Disposition Patient Disposition: Home, Self-Care Condition: Fair Discharge Order Discharge Orders: Discharge Order (Routine); Ordered 03/12/25 Ordered By: Dio Collins Follow up Plan Follow up with: Alfredito Albarado DO [Staff Physician] - 03/25/25 11:15 am Adi Sandhu MD [Staff Physician] - 03/18/25 1:45 pm Prescriptions/Medication Reconciliation: New lidocaine 5 % Adhesive Patch,Medicated 1 patch transdermal Q24H Qty: 0 0RF Rx Instructions: Okay to use [id number] medication Continued clopidogrel [Plavix] 75 mg tablet 75 mg PO DAILY (DME) lancets [Accu-Chek Fastclix Lancet Drum] Misc See Rx Instructions .Route Qty: 100 8RF Rx Instructions: Use twice daily for blood sugar checks diazepam [Valium] 5 mg tablet 5 mg PO BID PRN (Reason: anxiety) Qty: 60 1RF buspirone 10 mg tablet 10 mg PO BID Qty: 180 1RF Entresto 24-26 mg tablet 1 tab PO BID Qty: 180 3RF isosorbide mononitrate 30 mg tablet extended release 24 hr 30 mg PO DAILY Qty: 90 3RF (DME) Accu-Chek SmartView Test Strip Strip See Rx Instructions .Route Qty: 100 6RF Rx Instructions: As directed desvenlafaxine succinate [Pristiq] 50 mg tablet extended release 24 hr 50 mg PO DAILY Qty: 30 2RF carvedilol [Coreg] 25 mg tablet 25 mg PO BID trazodone 50 mg tablet 50 - 100 mg PO HS PRN (Reason: sleep) atorvastatin [Lipitor] 10 mg tablet 10 mg PO HS pantoprazole 40 mg tablet,delayed release (DR/EC) 40 mg PO HS nitroglycerin 0.4 mg tablet, sublingual 0.4 mg sublingual Q5MINP PRN (Reason: Chest Pain) Rx Instructions: DISSOLVE 1 TABLET UNDER TONGUE EVERY 5 TO 15 MINUTES NEEDED FOR CHEST PAIN UNTIL RESPONSE, MAX 3 DOSES PER EPISODE Xarelto 20 mg tablet 20 mg PO QPMWITHMEAL Jardiance 25 mg tablet 25 mg PO DAILY Problem Reconciliation Problems Reviewed?: Yes Patient Discharge Instructions ACTIVITY: Continue current activity DIET: continue same diet Patient Instructions: DI for Cardiac Catheterization, DI for Surgical Site Infection, DI for Chest Pain Print Language: Green[place]ic Providers Primary Care Provider: Provider,Referral Admit Provider: Dio Collins Attending Provider: Dio Collins
[2025-03-12 08:00] VITALS: BP 113/75; PULSE 100; PULSE 56; RESP 18; TEMP 36.8; O2SAT 100
[2025-03-12 08:14] LABS: Magnesium 2.2 mg/dl (1.6-2.3)
[2025-03-12] MEDS: BUSPIRONE HCL 10 MG TABLET PO (08:58)
[2025-03-12] MEDS: ASPIRIN EC 81MG TABLET 81 MG PO (08:58)
[2025-03-12] MEDS: CARVEDILOL 25MG TABLET 25 MG PO (08:59)
[2025-03-12] MEDS: EMPAGLIFLOZIN 25MG TABLET 25 MG PO (08:59)
[2025-03-12] MEDS: SACUBITRIL/VALSARTAN 24-26MG TABLET 1 EACH PO (08:59)
[2025-03-12] MEDS: CLOPIDOGREL 75MG TAB 75 MG PO (08:59)
[2025-03-12] MEDS: ISOSORBIDE MONO 30MG TAB.ER.24H 30 MG PO (08:59)
[2025-03-12] MEDS: DESVENLAFAXINE SUCCINATE 50 MG 50 EACH PO (09:00)
--- NOTE | 2025-03-15 11:00 | SW/DCPLANNER ---
Spoke with patient on the phone. Patient stated that he is feeling alot better. Patient stated that he is aware of his upcoming appointments. Patient stated that he was able to get his medicine picked up. Patient stated that he has no concerns or questions at this time. Patient stated that he has exceptional care. Rafael Villagran
== END 2025-03-12 09:53 | disposition home or self-care (01) | DRG 287 ==
LOC: ER 18:44 → 2ND 21:54
PROVIDERS: Internal Medicine; Student in an Organized Health Care Education/Training Program; Admitting Provider Internal Medicine Adolescent Medicine; Emergency Provider Emergency Medicine; Visit Provider Internal Medicine Adolescent Medicine
PROC: 4A023N7 Measurement of Cardiac Sampling and Pressure, Left Heart, Percutaneous Approach (ICD-10-PCS; CPT 93452; principal; 2025-03-11 12:00)
DX: I25.110 Atherosclerotic heart disease of native coronary artery with unstable angina pectoris (principal); I48.11 Longstanding persistent atrial fibrillation; G93.40 Encephalopathy, unspecified; E78.2 Mixed hyperlipidemia; I10 Essential (primary) hypertension; F41.1 Generalized anxiety disorder; R94.39 Abnormal result of other cardiovascular function study; G62.9 Polyneuropathy, unspecified; E11.42 Type 2 diabetes mellitus with diabetic polyneuropathy; Z91.018 Allergy to other foods; Z88.5 Allergy status to narcotic agent; Z88.6 Allergy status to analgesic agent; Z79.01 Long term (current) use of anticoagulants; Z79.899 Other long term (current) drug therapy; Z82.49 Family history of ischemic heart disease and other diseases of the circulatory system; Z95.5 Presence of coronary angioplasty implant and graft; Z87.891 Personal history of nicotine dependence; Z79.85 Long-term (current) use of injectable non-insulin antidiabetic drugs; R29.6 Repeated falls
CPT/HCPCS: 36415; 70450; 71045; 71275; 78452; 80053; 80061; 82962; 83036; 83735; 84100; 84484; 85007; 85014; 85018; 85025; 85048; 85049; 85378; 86803; 87389; 87636; 93005; 93017; 93018; 93306; 93458; 93880; 99152; 99285; C1725; C1769; J1200; J1644; J1650; J2250; J2270; J3010; J3360; Q9957; Q9967

== ENCOUNTER 2025-03-26 07:48 | Outpatient (CLI) | payer MEDICARE, MEDICAID, SELFPAY ==
[2025-03-26 13:13] LABS: Microscopic, Urine URINE MICROSCOPIC (MICROSCOPIC)
[2025-03-26 14:51] LABS: Appearance,Urine CLEAR (Clear); Bilirubin,Urine Negative (Negative); Blood, Urine 2+ (Negative); Color,Urine YELLOW (Yellow); Glucose,Urine (UA) 3+ (Negative); Ketones,Urine Negative (Negative); Leukocyte Esterase,Urine Negative (Negative); Nitrate,Urine Negative (Negative); PH,Urine 5.5 (5.0-8.5); Protein,Urine Negative (Negative); Urobilinogen,Urine 0.2 EU/dl (0.2)
[2025-03-26 14:59] LABS: Bacteria,Urine Trace /lpf; Squamous Epithelial Cell,Urine Occasional #/hpf (0-5)
[2025-03-26 15:10] LABS: Creatinine,Urine Random 84 mg/dL (Not Estab.)
[2025-03-26 15:14] LABS: Microalbumin/Creatinine Ratio 8.8
== END 2025-03-26 23:59 | disposition home or self-care (01) ==
LOC: LAB.DROPOF 03-29 07:48
PROVIDERS: PCP Internal Medicine; Visit Provider Internal Medicine
DX: E11.42 Type 2 diabetes mellitus with diabetic polyneuropathy (principal); R30.0 Dysuria
CPT/HCPCS: 81001; 82043; 82570; 87086; 87088; 87186

== ENCOUNTER 2025-04-06 07:32 | Outpatient (CLI) | payer MEDICARE, MEDICAID, SELFPAY | END 2025-04-06 23:59 | disposition home or self-care (01) | LOC: RT 07:33 | PROVIDERS: PCP Internal Medicine; Visit Provider Physician Assistant | DX: R06.02 Shortness of breath (principal) ==

== ENCOUNTER 2025-04-06 08:32 | Emergency (ER) | payer MEDICARE, MEDICAID, SELFPAY ==
--- NOTE | 2025-04-06 08:34 | ED_ITS ---
Discharge Plan Disposition Patient Disposition: Home, Self-Care Condition: Good Prescriptions Prescriptions: No Action (DME) lancets [Accu-Chek Fastclix Lancet Drum] Misc See Rx Instructions .Route Qty: 100 8RF Rx Instructions: Use twice daily for blood sugar checks buspirone 10 mg tablet 10 mg PO BID Qty: 180 1RF Entresto 24-26 mg tablet 1 tab PO BID Qty: 180 3RF isosorbide mononitrate 30 mg tablet extended release 24 hr 30 mg PO DAILY Qty: 90 3RF (DME) Accu-Chek SmartView Test Strip Strip See Rx Instructions .Route Qty: 100 6RF Rx Instructions: As directed desvenlafaxine succinate [Pristiq] 50 mg tablet extended release 24 hr 50 mg PO DAILY Qty: 30 2RF clopidogrel [Plavix] 75 mg tablet 75 mg PO DAILY Qty: 90 1RF atorvastatin 10 mg tablet See Rx Instructions .ROUTE .COMPLEX Qty: 90 3RF Dose Instruction: TAKE 1 TABLET EVERY DAY Rx Instructions: TAKE 1 TABLET EVERY DAY diazepam [Valium] 5 mg tablet 5 mg PO BID PRN (Reason: anxiety) Qty: 60 1RF trazodone 50 mg tablet 50 - 100 mg PO HS PRN (Reason: sleep) Qty: 60 2RF carvedilol [Coreg] 25 mg tablet 25 mg PO BID pantoprazole 40 mg tablet,delayed release (DR/EC) 40 mg PO HS nitroglycerin 0.4 mg tablet, sublingual 0.4 mg sublingual Q5MINP PRN (Reason: Chest Pain) Rx Instructions: DISSOLVE 1 TABLET UNDER TONGUE EVERY 5 TO 15 MINUTES NEEDED FOR CHEST PAIN UNTIL RESPONSE, MAX 3 DOSES PER EPISODE Xarelto 20 mg tablet 20 mg PO QPMWITHMEAL Jardiance 25 mg tablet 25 mg PO DAILY lidocaine 5 % Adhesive Patch,Medicated 1 patch transdermal Q24H Qty: 0 0RF Rx Instructions: Okay to use [id number] medication Referrals Follow up/Referrals: Alfredito Albarado DO [Primary Care Provider, Family Practice] - See instructions Activity Restrictions/Add. Instructions Additional Instructions/Restrictions: As we discussed, after shared decision making involving risks versus benefits we will not be collecting a second troponin level. The first one was undetectable. Please return with any new or worsening symptoms and follow-up with your primary care doctor. Clinical Impressions Clinical Impression: Acute chest pain Print Language Print Language: Czech Discharge ED Provider: Roni Wahl General Adult HPI General Chief complaint: Chest Pain Stated complaint: chest pain Time Seen by Provider: 04/06/25 08:33 History of Present Illness HPI narrative: Patient presents for evaluation of chest pain that was acute in onset starting this morning, intermittent, substernal, nonpleuritic, nonpositional, nonexertional, radiating to his jaw. He has had similar symptoms before and has history of CAD. No previous therapies. No changes in medications or new medications. Patient was in his normal state of health prior to onset of symptoms. Please note that above description of symptoms, in this electronic medical record under categorization of recalled from ER triage doctor by RN are reflective of an initial nursing assessment, however, is not reflective of my full history and physical exam that was personally taken and clarified. Consequentially, this preceding description of symptoms, which may include the patient's categorized chief complaint in the EMR, do not reflect my personal clinical impression, and the ultimate description of history of present illness and patient stated complaints should be deferred to this section of the note. Unless stated otherwise or congruent with this section of the note, additional signs, symptoms, or incongruence should be interpreted as inaccurate with my clinical impression. Related Data Home Medications ?Medication ?Instructions ?Recorded ?Confirmed carvedilol 25 mg tablet (Coreg) 25 mg PO BID 03/10/25 03/25/25 empagliflozin 25 mg tablet 25 mg PO DAILY 03/10/25 (Jardiance) nitroglycerin 0.4 mg sublingual 0.4 mg sublingual Q5MI SHAMPOO PERSON PRN Chest 03/10/25 03/25/25 tablet Pain pantoprazole 40 mg tablet,delayed 40 mg PO HS 03/10/25 03/25/25 release rivaroxaban 20 mg tablet (Xarelto) 20 mg PO QPMWITHMEA L 03/10/25 03/25/25 Previous Rx's ?Medication ?Instructions ?Recorded sacubitril 24 mg-valsartan 26 mg 1 tab PO BID #180 tab s 05/05/24 tablet (Entresto) isosorbide mononitrate 30 mg 30 mg PO DAILY #90 tabs 0 12/29/24 tablet,extended release 24 hr buspirone 10 mg tablet 10 mg PO BID #180 tabs 01/06 lancets (Accu-Chek Fastclix Lancet #100 ea 01/19/25 Drum) blood sugar diagnostic (Accu-Chek #100 ea 02/03/25 SmartView Test Strips) desvenlafaxine succinate 50 mg 50 mg PO DAILY #30 tabs 02/04/25 tablet,extended release 24 hr (Pristiq) lidocaine 5 % topical patch 1 patch transdermal Q24H # 0 ea 03/12/25 clopidogrel 75 mg tablet (Plavix) 75 mg PO DAILY #90 t abs 03/15/25 atorvastatin 10 mg tablet See Rx Instructions .Route 0 03/16/25 .COMPLEX #90 tabs diazepam 5 mg tablet (Valium) 5 mg PO BID PRN anxiety #60 tabs 03/23/25 trazodone 50 mg tablet 50 - 100 mg (1 - 2 x 50 mg) PO HS 03/23/25 PRN sleep #60 tabs Allergies Allergy/AdvReac Type Severity Reaction Status Date / Time cinnamon (CINNAMON) Allergy Severe S-DIFF. Verified 03/25/25 10:36 BREATHING adhesive tape Allergy Mild Rash Verified 03/25/25 10:36 orange juice Allergy Mild Rash Verified 03/25/25 10:36 acetaminophen (From Percocet) Allergy Confusion Verified 03/25/25 10:36 oxycodone (From Percocet) Allergy Confusion Verified 03/25/25 10:36 [facility] Disclaimer: The information contained in this section may have been updated after the patient was seen, as this information can be updated by other users. Medical History Shortness of breath Low serum cortisol level Balanitis LV dysfunction Major depressive disorder Typical angina Syncope Dizziness Palpitations Chest pain Atrial fibrillation Obstructive sleep apnea Hyperlipidemia Hypertensive heart disease without heart failure Sinus bradycardia Coronary arteriosclerosis Surgical History H/O colonoscopy H/O heart artery stent H/O right heart catheterization Family History Other Coronary artery disease Diabetes Heart attack Hyperlipidemia Hypertension Social History Smoking Status: Former smoker second hand exposure: No alcohol intake: former counseling provided: none substance use type: denies use current occupational status: retired Travel in the last 8 weeks?: None household members: spouse housing: house number of children: 2 current occupational exposures/hazards: No caffeine: No Have you lived/traveled outside US in past 30 days?: No Contact w/someone who lives/traveled outside US past 30 days?: No Exposure to someone with infectious disease in past 14 days?: No Do you have a fever (greater than 100.4 F or 38 C)?: No Have you tested positive for COVID-19?: No Exposed to someone with COVID-19 in past 14 days?: No Do you have a sore throat?: No Do you have a cough?: No Do you have any weakness?: No Do you have any diarrhea?: No Are you experiencing any unusual bleeding?: No Do you have any muscle aches/pain?: No Do you have any abdominal pain?: No Are you experiencing loss of taste or smell?: No Other Medical History Have you received the Flu Vaccine for this season: No Have you received the Pneumonia Vaccine: No ROS Obtained: Yes other As per HPI Physical Exam General General appearance: alert and anxious Head Head exam: atraumatic and normocephalic Eye Eye exam: Present normal appearance Neck Neck exam: Present normal inspection Chest Chest inspection: Present normal inspection and symmetric chest wall rise Respiratory Respiratory exam: Present normal lung sounds bilaterally; Absent respiratory distress Cardiovascular Cardiovascular exam: Present regular rate and normal rhythm Abdominal Exam Abdominal exam: Present soft Neurological Exam Neurological exam: Present alert and oriented X3 Psychiatric Psychiatric exam: Present normal affect and normal mood Skin Skin exam: Present warm and dry Medical Decision Making Medical Records Medical records reviewed: Yes I reviewed the patient's medical records. Screening: Per USPSTF and CDC recommendations, given the prevalence of disease in our region, it is our hospital?s policy to screen for HIV and viral Hepatitis for all patients aged 18 and over and those with ongoing risk factors. Matias Inquiry Pt receiving controlled substance: No Vital Signs: 04/06/25 08:44 04/06/25 09:30 04/06/25 10:01 Temperature 98.1 F Temperature Source Oral Pulse Rate 66 72 Pulse Rate [Right Radial] 67 Respiratory Rate 19 18 16 Blood Pressure 139/72 119/69 Blood Pressure [Right Arm] 163/95 H Blood Pressure Mean 94 85 Blood Pressure Mean [Right Arm] 117 Blood Pressure Source Blood Pressure Source [Right Arm] Automatic Cuff Blood Pressure Position Blood Pressure Position [Right Arm] Sitting 02 Sat by Pulse Oximetry 18 L 97 97 Oxygen Delivery Method Room Air 04/06/25 10:30 04/06/25 11:07 Temperature 65 F L Temperature Source Oral Pulse Rate 57 L 65 Pulse Rate [Right Radial] Respiratory Rate 16 15 Blood Pressure 112/74 115/77 Blood Pressure [Right Arm] Blood Pressure Mean 85 Blood Pressure Mean [Right Arm] Blood Pressure Source Automatic Cuff Blood Pressure Source [Right Arm] Blood Pressure Position Supine Blood Pressure Position [Right Arm] 02 Sat by Pulse Oximetry 98 Oxygen Delivery Method Room Air Lab Data Lab Results 04/06/25 08:40: WBC 6.3, RBC 5.70, Hgb 18.1 H, Hct 53.4 H, MCV 93.7, MCH 31.8 H, MCHC 33.9, RDW 13.0, Plt Count 207, MPV 9.1, Neut % (Auto) 57.6, Lymph % (Auto) 29.5, [place] % (Auto) 9.2, Eos % (Auto) 2.4, Baso % (Auto) 1.1, Neut # (Auto) 3.7, Lymph # (Auto) 1.9, [place] # (Auto) 0.6, Eos # (Auto) 0.2, Baso # (Auto) 0.1, Sodium 139, Potassium 4.4, Chloride 105, Carbon Dioxide 28, Anion Gap 10.4, BUN 14, Creatinine 0.90, Estimated Creat Clear 96, Estimated GFR 82, Est GFR ( Amer) 100, Glucose 139 H, Calcium 9.5, Magnesium 2.0, Total Bilirubin 1.9 H, AST 29, ALT 26, Alkaline Phosphatase 48, Troponin I < 0.01, NT-Pro-B Natriuret Pep 400 H, Total Protein 7.8, Albumin 4.6, Globulin 3.2, Albumin/Globulin Ratio 1.4, Lipase 133 04/06/25 08:40 04/06/25 08:40 Orders (Tests/Meds): ED MEDICATIONS Discontinued Medications Generic Name Dose Route Start Last Admin Trade Name Freq PRN Reason Stop Dose Admin Nitroglycerin 0.4 mg 04/06/25 08:38 Nitroglycerin 0.4mg Sl Tablet SL 05/06/25 08:37 Q5MINP PRN Chest Pain ORDERS Category Date Time Status XR chest portable Stat Exams 04/06/25 08:38 Completed BNP [NT Pro Brain Natriuretic Pep.] Stat Lab 04/06/25 08:40 Completed CBC w/Auto Diff [Complete Blood Count Auto Diff] Stat Lab 04/06/25 08:40 Completed CMP [Comprehensive Metabolic Panel] Stat Lab 04/06/25 08:40 Completed Lipase Stat Lab 04/06/25 08:40 Completed MAG [Magnesium] Stat Lab 04/06/25 08:40 Completed Troponin I Q3H Lab 04/06/25 08:40 Completed HEART Score History (anamnesis): Moderately suspicious ECG: Non-specific disturbance Age: >65 years Risk factors: Atherosclerosis history Troponin: </= normal limit HEART Score: 6 Medical Decision Narrative: Patient with history and exam per above presenting for evaluation of acute chest pain Diagnoses considered include ACS, referred pain, insufficient clinical evidence to warrant further evaluation for etiologies such as dissection. Patient, per chart review, notably has had similar presentations consistent with acute anxiety. No clinical evidence of volume overload ED workup and treatment included: ED MEDICATIONS Discontinued Medications Generic Name Dose Route Start Last Admin Trade Name Freq PRN Reason Stop Dose Admin Nitroglycerin 0.4 mg 04/06/25 08:38 Nitroglycerin 0.4mg Sl Tablet SL 05/06/25 08:37 Q5MINP PRN Chest Pain ORDERS Category Date Time Status XR chest portable Stat Exams 04/06/25 08:38 Completed BNP [NT Pro Brain Natriuretic Pep.] Stat Lab 04/06/25 08:40 Completed CBC w/Auto Diff [Complete Blood Count Auto Diff] Stat Lab 04/06/25 08:40 Completed CMP [Comprehensive Metabolic Panel] Stat Lab 04/06/25 08:40 Completed Lipase Stat Lab 04/06/25 08:40 Completed MAG [Magnesium] Stat Lab 04/06/25 08:40 Completed Troponin I Q3H Lab 04/06/25 08:40 Completed Labs were independently interpreted by me, significant for BNP 400, initial troponin undetectable, no hypoglycemia, no leukocytosis, hemoglobin 18.1 Imaging was independently visualized and interpreted by me, significant for no acute findings Please refer to radiology report for full details. Patient reports complete resolution of symptoms upon repeat evaluation. He is requesting to be discharged at this time. I recommended repeat troponin however patient declines after discussion of risks versus benefits. He will follow-up with cardiology on outpatient basis and return with any new or worsening symptoms. Critical Care Critical Care Time Critical Care Time: No
--- NOTE | 2025-04-06 08:35 | ECG_ITS ---
APPROVED REPORT Exam: Resting ECG HR:84 bpm ECG Measurements Heart Rate 84 AXES QRSd 95 QRS 71 QT 375 T 51 QTc 416 Conclusion ATRIAL FIBRILLATION ABNORMAL RHYTHM ECG Electronically signed by : SYDNEY TERRY, 04/06/2025 13:06:54
--- NOTE | 2025-04-06 08:38 | XR_ITS ---
FINAL REPORT TECHNIQUE: Single view chest CLINICAL HISTORY: acute chest pain COMPARISON: 03/09/2025 FINDINGS: A single view of the chest was obtained. The heart is mildly enlarged. The lungs are clear. There is no pneumothorax. IMPRESSION: No acute cardiopulmonary process. Reviewed, Interpreted and Dictated by Anselmo Broussard MD Transcribed by Ami Treadwell Authenticated and [facility]
--- NOTE | 2025-04-06 08:43 | PC.NURSE ---
DR TERRY AT BEDSIDE
[2025-04-06 08:44] VITALS: BP 163/95; PULSE 67; RESP 19; TEMP 36.7; O2SAT 18; BMI 34.9
[2025-04-06 08:48] LABS: Basophils # 0.1 K/mm3 (0-0.2); Basophils % 1.1 % (0.1-2.0); Eosinophils # 0.2 Kmm3 (0.0-0.4); Eosinophils % 2.4 % (0.1-12.0); Hematocrit 53.4 % (42.0-52.0); Immature Granulocytes # 0.01 10^3uL; Immature Granulocytes % 0.2 %; Lymphocytes # 1.9 K/mm3 (0.7-4.5); Lymphocytes % 29.5 % (10-50); Mean Corpuscular HGB Conc 33.9 g/dL (31.8-35.4); Mean Corpuscular Hemoglobin 31.8 pg (27.0-31.2); Mean Corpuscular Volume 93.7 fl (80-94); Mean Platelet Volume 9.1 fl (7.4-10.4); Monocytes # 0.6 K/mm3 (0.1-1.0); Monocytes % 9.2 % (1.7-9.3); Neutrophils # 3.7 K/mm3 (1.8-7.8); Neutrophils % 57.6 % (37.0-80.0); Nucleated Red Blood Cells # 0 10^3/uL; Nucleated Red Blood Cells % 0 %; Platelet Count 207 K/mm3 (142-424); Red Cell Distribution Width-SD 44.7 fL; White Blood Count 6.3 K/mm3 (4.8-10.8)
--- NOTE | 2025-04-06 09:00 | PC.NURSE ---
XR AT BEDSIDE
[2025-04-06 09:04] LABS: Albumin Level 4.6 g/dl (3.5-5.0); Chloride 105 mmol/L (98-107); Potassium 4.4 mmoL/L (3.5-5.1); Sodium 139 mmol/L (136-145)
[2025-04-06 09:07] LABS: Alanine Aminotransferase 26 U/L (12-78); Albumin/Globulin Ratio 1.4 (1.1-1.8); Alkaline Phosphatase 48 U/L (38-126); Anion Gap 10.4 mEq/L (5-15); Aspartate Amino Transferase 29 U/L (17-59); Bilirubin,Total 1.9 mg/dl (0.2-1.3); Blood Urea Nitrogen 14 mg/dl (9-20); Calcium 9.5 mg/dl (8.4-10.2); Carbon Dioxide 28 mmol/L (22.0-30.0); Creatinine Clearance Estimated 96 mL/min (50-200); Estimated Glomerular Filt Rate 82 ml/min (>60); GFR (African American) 100 ML/MIN (>60); Globulin 3.2 g/dL (1.3-3.2); Glucose 139 mg/dl (74-100); Lipase 133 U/L (23-300); Total Protein,Serum 7.8 g/dl (6.3-8.2)
[2025-04-06 09:17] LABS: NT Pro Brain Natriuretic Pep. 400 pg/mL (0-125)
[2025-04-06 09:28] LABS: Hemoglobin 18.1 g/dL (14.1-18.0)
[2025-04-06 09:30] VITALS: BP 139/72; PULSE 66; RESP 18; O2SAT 97
[2025-04-06 09:42] LABS: Troponin I < 0.01 ng/ml (0.00-0.034)
[2025-04-06 10:01] VITALS: BP 119/69; PULSE 72; RESP 16; O2SAT 97
[2025-04-06 10:30] VITALS: BP 112/74; PULSE 57; RESP 16; O2SAT 98
--- NOTE | 2025-04-06 10:43 | PC.NURSE ---
pt to restroom at this time, visitor @ [facility]
--- NOTE | 2025-04-06 10:45 | PC.NURSE ---
pt back from [facility]
[2025-04-06 11:07] VITALS: BP 115/77; PULSE 65; RESP 15; TEMP 18.3; O2SAT 99
== END 2025-04-06 11:08 | disposition home or self-care (01) ==
PROVIDERS: Emergency Provider Emergency Medicine; PCP Internal Medicine
DX: R07.89 Other chest pain (principal); I48.91 Unspecified atrial fibrillation; R79.89 Other specified abnormal findings of blood chemistry; I10 Essential (primary) hypertension; Z87.891 Personal history of nicotine dependence
CPT/HCPCS: 71045; 80053; 83690; 83735; 83880; 84484; 85025; 93005; 99284

== ENCOUNTER 2025-06-23 12:15 | Day surgery (SDC) | payer MEDICARE, SELFPAY ==
[2025-06-18 13:52] VITALS: BMI 31.4
--- NOTE | 2025-06-22 17:23 | EXP.HP ---
History of Present Illness *Admission Date: 06/23/25 *History of present illness: Mr. Sharp is a 74-year-old gentleman who is here for diagnostic EGD because of his noncardiac chest pain/esophageal chest pain and history of GERD. He has had extensive cardiac evaluation with no coronary disease. He does have associated syncope and vasovagal episodes. He is on pantoprazole. The examination is deemed medically necessary for diagnostic EGD. The patient has been seen, interviewed and examined prior to the procedure by both myself and the anesthesia provider. [facility] Disclaimer: The information contained in this section may have been updated after the patient was seen, as this information can be updated by other users. Medical History Shortness of breath Low serum cortisol level Balanitis LV dysfunction Major depressive disorder Typical angina Syncope Dizziness Palpitations Chest pain Atrial fibrillation Obstructive sleep apnea Hyperlipidemia Hypertensive heart disease without heart failure Sinus bradycardia Coronary arteriosclerosis Surgical History H/O colonoscopy H/O heart artery stent H/O right heart catheterization Family History Other Coronary artery disease Diabetes Heart attack Hyperlipidemia Hypertension Social History Smoking Status: Former smoker second hand exposure: No alcohol intake: former counseling provided: none substance use type: denies use current occupational status: retired Travel in the last 8 weeks?: None household members: spouse housing: house number of children: 2 current occupational exposures/hazards: No caffeine: No Have you lived/traveled outside US in past 30 days?: No Contact w/someone who lives/traveled outside US past 30 days?: No Exposure to someone with infectious disease in past 14 days?: No Do you have a fever (greater than 100.4 F or 38 C)?: No Have you tested positive for COVID-19?: No Exposed to someone with COVID-19 in past 14 days?: No Do you have a sore throat?: No Do you have a cough?: No Do you have any weakness?: No Do you have any diarrhea?: No Are you experiencing any unusual bleeding?: No Do you have any muscle aches/pain?: No Do you have any abdominal pain?: No Are you experiencing loss of taste or smell?: No Other Medical History Have you received the Flu Vaccine for this season: No Have you received the Pneumonia Vaccine: Yes Review of Systems Review of Systems Review of systems (narrative): Negative *Cardiovascular Comments: Negative *Gastrointestinal Comments: Negative *Genitourinary Comments: Negative *Musculoskeletal Comments: Negative *Neurologic Comments: Negative Meds Home Medications and Allergies Home Medications ?Medication ?Instructions ?Recorded ?Confirmed ?Type sacubitril 24 mg-valsartan 26 mg 1 tab PO BID #180 tabs 05/05/24 06/23/25 Rx tablet (Entresto) lancets (Accu-Chek Fastclix Lancet #100 ea 01/19/25 06/23/25 Rx Drum) blood sugar diagnostic (Accu-Chek #100 ea 02/03/25 06/23/25 Rx SmartView Test Strips) empagliflozin 25 mg tablet 25 mg PO DAILY 03/10/25 06/23/25 History (Jardiance) rivaroxaban 20 mg tablet (Xarelto) 20 mg PO QPMWITHMEAL 03/10/25 06/18/25 History clopidogrel 75 mg tablet (Plavix) 75 mg PO DAILY #90 tabs 03/15/25 06/18/25 Rx atorvastatin 10 mg tablet See Rx Instructions .Route 03/16/25 06/23/25 Rx .COMPLEX #90 tabs diazepam 5 mg tablet (Valium) 5 mg PO BID PRN anxiety #60 tabs 03/23/25 06/23/25 Rx metoprolol succinate 25 mg 25 mg PO DAILY #30 tabs 05/27/25 06/23/25 Rx tablet,extended release 24 hr isosorbide mononitrate 30 mg 30 mg PO DAILY #90 tabs 06/01/25 06/23/25 Rx tablet,extended release 24 hr desvenlafaxine succinate 100 mg 100 mg PO DAILY #90 tabs 06/02/25 06/23/25 Rx tablet,extended release 24 hr (Pristiq) buspirone 10 mg tablet 10 mg PO BID #180 tabs 06/10/25 06/23/25 Rx trazodone 50 mg tablet 50 - 100 mg (1 - 2 x 50 mg) PO HS 06/14/25 06/23/25 Rx PRN sleep #180 tabs pseudoephedrine HCl 30 mg tablet 60 mg PO Q6H PRN nasal congestion 06/18/25 06/23/25 History (Sudafed) pantoprazole 40 mg tablet,delayed See Rx Instructions .Route 06/21/25 06/23/25 Rx release .COMPLEX #90 tabs New Prescriptions to Start Prescriptions: Allergies Allergy/AdvReac Type Severity Reaction Status Date / Time cinnamon (CINNAMON) Allergy Severe S-DIFF. Verified 06/23/25 12:47 BREATHING adhesive tape Allergy Mild Rash Verified 06/23/25 12:47 bupropion (From Wellbutrin) Allergy Mild Other Verified 06/23/25 12:47 orange juice Allergy Mild Rash Verified 06/23/25 12:47 Exam *Routine HEENT Exam Head: Present normocephalic Eye: Present EOMI and PERRL ENT: Present mucous membranes moist *Routine Neck Exam Neck: Present supple *Routine Respiratory Exam Respiratory: Present CTA bilaterally *Routine Cardiovascular Exam Cardiovascular: Present RRR *Routine Abdominal Exam Abdominal: Present soft and normoactive bowel sounds; Absent tenderness *Routine Rectal Exam Rectal:: deferred *Routine Genitalia Exam Genitalia:: deferred *Routine Extremities Exam Extremities: Absent cyanosis, clubbing or edema *Routine Skin Exam Skin: Present warm; Absent rash *Routine Neurological Exam Neurological: Present alert and oriented X3 Assessment and Plan *Assessment and plan (1) Non-cardiac chest pain: Status: Acute Category: Medical Code(s): R07.89 - Other chest pain (2) GERD (gastroesophageal reflux disease): Status: Acute Category: Medical Code(s): K21.9 - Gastro-esophageal reflux disease without esophagitis (3) Vasovagal syncope: Status: Resolved Category: Medical Code(s): R55 - Syncope and collapse Plan A/P: 1. Noncardiac chest pain and history of GERD is the preprocedural diagnosis. He does have some associated syncope. The patient will be anesthetized/sedated using MAC sedation. The patient has been seen and examined. Cardiac and lung assessment prior to the examination is stable. Proceed with planned diagnostic EGD.
--- NOTE | 2025-06-23 12:49 | EXP.ANES.CKL ---
[facility] Disclaimer: The information contained in this section may have been updated after the patient was seen, as this information can be updated by other users. Medical History Shortness of breath Low serum cortisol level Balanitis LV dysfunction Major depressive disorder Typical angina Syncope Dizziness Palpitations Chest pain Atrial fibrillation Obstructive sleep apnea Hyperlipidemia Hypertensive heart disease without heart failure Sinus bradycardia Coronary arteriosclerosis Surgical History H/O colonoscopy H/O heart artery stent H/O right heart catheterization Family History Other Coronary artery disease Diabetes Heart attack Hyperlipidemia Hypertension Social History Smoking Status: Former smoker second hand exposure: No alcohol intake: former counseling provided: none substance use type: denies use current occupational status: retired Travel in the last 8 weeks?: None household members: spouse housing: house number of children: 2 current occupational exposures/hazards: No caffeine: No Have you lived/traveled outside US in past 30 days?: No Contact w/someone who lives/traveled outside US past 30 days?: No Exposure to someone with infectious disease in past 14 days?: No Do you have a fever (greater than 100.4 F or 38 C)?: No Have you tested positive for COVID-19?: No Exposed to someone with COVID-19 in past 14 days?: No Do you have a sore throat?: No Do you have a cough?: No Do you have any weakness?: No Do you have any diarrhea?: No Are you experiencing any unusual bleeding?: No Do you have any muscle aches/pain?: No Do you have any abdominal pain?: No Are you experiencing loss of taste or smell?: No [place] Anesthesia Checklist Patient Identification Patient Identification: Arm Band and Family Structural Data Admitted From: Home Planned Operative Procedure/s: EGD Consent for Planned Operative Procedure(s) Verified: Yes Verified Documents: Surgical Consent, History and Physical and Cardiac Clearance Additional verifications Patient : No Anesthesia Reactions: No Hx Blood Transfusions: No Blood Transfusion Reaction: No Cephalosporin Allergy: No Previous Colonoscopy: Yes Airway Assessment Mallampati Score:: Class II C-Spine Mobility Assessed: Yes TMJ Mobility Assessed: Yes Dentition: Edentulous Neurological Assessment Level of Consciousness: Awake, Alert, Appropriate and Follows Commands Hx Seizures: No Numbness or tingling in extremities: No Anesthesia Plan Anesthesia Risk discussed: Yes ASA Class: IV Anesthesia Type: MAC Preoperative Comments Pre-Operative Comments: Stents X5. [place] X3.
[2025-06-23 12:50] VITALS: BP 126/70; PULSE 82; RESP 16; TEMP 36.1; O2SAT 97
[2025-06-23] MEDS: LACTATED RINGERS 1000ML 1,000 ML 50 ML IV (12:59)
--- NOTE | 2025-06-23 13:25 | HMH.PROCNOTE ---
[facility] Procedure Note Date: 06/23/25 Time: 13:44 Procedure Note:: Upper Endoscopy Procedure Report: Esophagogastroduodenoscopy with cold biopsies Endoscopost: Jovanni Sy II, MD Referring Physician: Alfredito Albarado DO Date of Procedure: June 23, 2025 Equipment: Olympus GIF-1100 standard upper endoscope Sedation: MAC sedation Indications: Mr. Sharp is a 74-year-old gentleman who is here for diagnostic EGD because of his noncardiac chest pain/esophageal chest pain and history of GERD. He has had extensive cardiac evaluation with no coronary stenosis. 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 He does have associated syncope and vasovagal episodes with his chest pain. He is on pantoprazole. The patient reports no bloating but does have some normal belching. He reports some early satiety. He has no nausea. He does state that when his chest pain occurs it hits all at once and has occurred 3-4 times in the last couple of months. This chest pain is not exertional or postprandial. He reports no dysphagia. Procedure: Prior to the procedure, a history and physical exam was performed, and patient's medications and allergies were reviewed. The risks, benefits and alternatives of the sedation and procedure were discussed with the patient. All questions were answered and informed consent was obtained. The patient was brought to the procedure room. Patient identification and proposed procedure were verified by the physician and the nurse. The patient was placed in a left lateral decubitus position and the scope was passed under direct vision. Throughout the procedure, the patient's blood pressure, pulse, and oxygen saturations were monitored continuously. The upper GI endoscopy was accomplished without difficulty. The patient tolerated the procedure well. Findings: The scope was passed directly into the upper esophagus and advanced to the third portion of the duodenum. A cold biopsy was taken from the second portion of the duodenum for the disaccharidase assay. The post bulbar duodenum, ampulla and duodenal bulb were normal with normal mucosa and conniventes. The scope was withdrawn through a normal duodenal bulb and pylorus into the stomach. There was mild antral gastropathy and mild proximal chronic gastritis. Cold biopsies were taken along the lesser curvature. Upon retroflexion there was no hiatal hernia. The scope was then withdrawn into the esophagus. There was no evidence of reflux esophagitis or Elliott's. There were stronger tertiary contractions and evidence of moderate esophageal dysmotility. The remainder of the esophageal mucosa was normal. Impression: 1. Moderate esophageal dysmotility with nonerosive GERD 2. Mild antral gastropathy and mild chronic gastritis Plan: I will follow-up the biopsies and disaccharidase assay. The patient does have esophageal dysmotility but not hypercontractile esophagus. I do still feel that this may be esophageal chest pain with esophageal spasm causing his vagal episodes. We will discuss treatment options today.
[2025-06-23 13:45] VITALS: BP 103/61; PULSE 78; RESP 14; TEMP 36.3; O2SAT 95
[2025-06-23 13:55] VITALS: BP 119/74; PULSE 67; RESP 17; TEMP 36.3; O2SAT 93
[2025-06-23 14:05] VITALS: PULSE 78; RESP 17; TEMP 36.3; O2SAT 97
[2025-06-23 14:14] VITALS: BP 115/70; PULSE 65; RESP 18; TEMP 36.3; O2SAT 95
[2025-06-23 15:02] LABS: POC Glucose,Bedside 84 gm/dL (70-110)
[2025-06-30 14:23] LABS: Interpretation Notes (.); Lactase 3.98 (>/= 14.0); Maltase 191.6 (>/= 110.0); Palatinase 12.26 (>/= 8.5); Reference Notes (.); Sucrase 52.37 (>/= 25.0)
== END 2025-06-23 14:28 | disposition home or self-care (01) ==
PROVIDERS: PCP Internal Medicine; Visit Provider Internal Medicine Gastroenterology
PROC: 0DJ08ZZ Inspection of Upper Intestinal Tract, Via Natural or Artificial Opening Endoscopic (ICD-10-PCS; CPT 43239; principal; 2025-06-23 14:00)
DX: K29.50 Unspecified chronic gastritis without bleeding (principal); B96.81 Helicobacter pylori [H. pylori] as the cause of diseases classified elsewhere; K21.9 Gastro-esophageal reflux disease without esophagitis; K31.89 Other diseases of stomach and duodenum; R55 Syncope and collapse; F32.9 Major depressive disorder, single episode, unspecified; I48.91 Unspecified atrial fibrillation; G47.33 Obstructive sleep apnea (adult) (pediatric); E78.5 Hyperlipidemia, unspecified; I11.9 Hypertensive heart disease without heart failure; I25.10 Atherosclerotic heart disease of native coronary artery without angina pectoris; F41.9 Anxiety disorder, unspecified; R00.1 Bradycardia, unspecified; R00.2 Palpitations; Z95.5 Presence of coronary angioplasty implant and graft; Z87.891 Personal history of nicotine dependence; Z79.899 Other long term (current) drug therapy; Z91.018 Allergy to other foods; Z88.8 Allergy status to other drugs, medicaments and biological substances; Z79.01 Long term (current) use of anticoagulants
CPT/HCPCS: 43239; 82657; 82962; 88305; J2003; J2704; J7120

== ENCOUNTER 2025-09-30 07:58 | Outpatient (CLI) | payer MEDICARE, SELFPAY ==
--- OUTSIDE RECORDS SUMMARY | 2025-09-30 08:01 | XMS_ITS ---
Laboratory report Created on: September 28, 2025 MANUELITO CARDOSO : 1950 Sex: Male Author Organization Unknown PROBLEMS Problems List Code Description RESULTS Laboratory Orders Date Order Code Test 2024-10-16 [id number] ACTH, PLASMA 2024-10-16 [id number] RENIN ACTIVITY, PLASMA 2024-10-16 [id number] CORTISOL Laboratory Results Date LOINC Test Value Unit Reference Range Interpre tation 2024-10-16 2141-0 ACTH, PLASMA 56.8 PG/ML 7.2-63.3 2024-10-16 2915-7 RENIN ACTIVITY, PLASMA .828 NG/ML/HR 0.167-5.380 2024-10-16 2143-6 CORTISOL 13.1 UG/DL 6.2-19.4
--- OUTSIDE RECORDS SUMMARY | 2025-09-30 08:01 | XMS_ITS ---
Laboratory report Created on: September 28, 2025 JERAMYIGORMANUELITO : 1950 Sex: Male Author Organization Unknown PROBLEMS Problems List Code Description RESULTS Laboratory Orders Date Order Code Test 2024-10-16 [id number] ALDOSTERONE LCMS , SERUM Laboratory Results Date LOINC Test Value Unit Reference Range Interpre tation 2024-10-16 1763-2 ALDOSTERONE 5.4 NG/DL 0.0-30.0
--- OUTSIDE RECORDS SUMMARY | 2025-09-30 08:01 | XMS_ITS | Clinical Summary ---
Author Organization 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 Not on file 06/2023 Does Anyone Keep You from Co ntacting Others or Doint Things Outside the Home? Not on file 08/05/2023 Physical Sign of Abuse Present Not on file 1 Housing Stability Answer Date Recorded Current Living Arrangements Not on file 06/2023 Potentially Unsafe Housing Conditions Not on king e 08/05/2023 Family and Community Support Answer Remington e Recorded Help with Day-to-Day Activities Not on file 08/05/2023 Lonely or Isolated Not on file 08/05/2023 Employment Answer Date Recorded Do you want help finding or keeping work or a navneet b? Not on file 08/05/2023 Disabilities Answer Date Recorded Concentrating, Remembering, or Making Decisions Difficulty Not on file 08/05/2023 Doing Errands Independently Difficulty Not on fi le 08/05/2023 Education Answer Date Recorded Help with school or training? Not on file Preferred Language Not on file 08/05/2023 Sex and Gender Information Value Date Recorded Sex Assigned at Not on file Legal Sex Male 1:03 PM EDT Gender Identity Not on file Sexual Orientation Not on file Plan of Treatment Health Maintenance Due Date Last Done Comments ANNUAL PHYSICAL 1950 HEPATITIS C SCREENING 1950 TDAP/TD VACCINES (1 - Tdap) 1969 COLOGUARD 1995 COLON CANCER SCREENING 5 YEAR SIGMOIDOSCOPY 1995 COLONOSCOPY 1995 [address] CANCER SCREENING 1995 CT COLONOGRAPHY 1995 FECAL OCCULT BLOOD TEST 1995 FIT Testing (1 year) 1995 Pneumococcal Vaccine 50+ (1 of 1 - PCV) 2000 ZOSTER VACCINE (1 of 2) 2000 AAA SCREEN ONCE 2015 INFLUENZA VACCINE 05/28/2025 COVID-19 Vaccine ( - season) 2025 RSV Vaccine - Adults (1 - 1-dose 75+ series)
== END 2025-09-30 23:59 | disposition home or self-care (01) ==
LOC: LAB 07:59
PROVIDERS: PCP Internal Medicine; Visit Provider Internal Medicine Gastroenterology
DX: K29.70 Gastritis, unspecified, without bleeding (principal); B96.81 Helicobacter pylori [H. pylori] as the cause of diseases classified elsewhere
CPT/HCPCS: 83013; 83014